=== PATIENT | female | born 1940 | race Caucasian/White ===

== ENCOUNTER → 2018-02-25 01:21 | Outpatient (CLI) | payer MEDICARE, OTHER, SELFPAY ==
--- NOTE | 2018-02-25 13:10 | DI.REPORT_ITS ---
SYMPTOMS/DIAGNOSIS: SCREENING, Z12.39 MAMMOGRAMS: Mammograms were interpreted according to the usual protocol including computer analysis with CAD system, tomosynthesis and C view imaging. Comparison is with prior mammograms. No masses or microcalcifications are seen. There is nothing to suggest malignancy. IMPRESSION: Negative mammogram. Routine screening is recommended. Category 1, breast density B. MQSA ASSESSMENT OF FINDINGS: Negative. Category 1. Patient will receive a letter notifying them of these results. BI-RADS category B. There are scattered areas of fibroglandular density.
== END ==
PROVIDERS: PCP Nurse Practitioner; Visit Provider Nurse Practitioner
DX: Z12.31 Encounter for screening mammogram for malignant neoplasm of breast (principal)
CPT/HCPCS: 77063; 77067

== ENCOUNTER 2018-05-02 01:26 | Outpatient (CLI) | payer MEDICARE, SELFPAY ==
--- NOTE | 2018-05-02 12:58 | DI.RAD_ITS ---
SYMPTOMS/DIAGNOSIS: ASSESS QUANTITY OF STOOL, CONSTIPATION, K59.09, R10.9, ABD PAIN SUPINE ABDOMEN: Stool is seen throughout the colon. There is no abnormal colonic distention. There is no small bowel or gastric dilatation. A left renal artery stent is seen. IMPRESSION: Moderate quantity of fecal material.
== END 2018-05-02 01:46 ==
PROVIDERS: PCP Nurse Practitioner; Visit Provider Family Medicine
DX: K59.09 Other constipation (principal); R10.84 Generalized abdominal pain
CPT/HCPCS: 74018

== ENCOUNTER 2018-05-02 13:15 | Outpatient (REF) | payer MEDICARE, SELFPAY ==
[2018-05-02 13:56] LABS: Bilirubin Negative (Negative); Blood Negative (Negative); Clarity Sl Cloudy; Glucose Negative (Negative); Ketones Negative (Negative); Leukocyte Esterase Small (Negative); Nitrite Negative (Negative); Specific Gravity 1.015 (1.005-1.025); Urobilinogen 0.2 EU/dL (Up TO 0.2)
[2018-05-02 14:05] LABS: Bacteria Few HPF (Negative); Epithelial Cells Few HPF (Negative); RBC Negative (0-2)
[2018-05-02 14:06] LABS: C & S Indicated? Yes; Casts Negative LPF (Negative); Crystals Negative HPF (Negative); Mucus Trace (Negative)
== END 2018-05-02 13:35 ==
LOC: NCHCN 13:15
PROVIDERS: PCP Nurse Practitioner; Visit Provider Family Medicine
DX: R35.0 Frequency of micturition (principal)
CPT/HCPCS: 81003; 81015; 87086

== ENCOUNTER 2018-07-02 09:09 | Outpatient (REF) | payer MEDICARE, SELFPAY ==
[2018-07-02 13:06] LABS: ALT 23 U/L (12-78); AST 20 U/L (15-37); Albumin 4.4 g/dL (3.4-5.0); Alkaline Phosphatase 112 U/L (46-116); Anion Gap 8.3 mmol/L (3-11); BUN 13 mg/dL (7-18); Bilirubin, Total 0.4 mg/dL (0.2-1.0); CO2 29.7 mmol/L (21.0-32.0); Calcium 10.8 mg/dL (8.5-10.1); Chloride 103 mmol/L (98-107); Cholesterol 176 mg/dL (50-200); Glucose 107 mg/dL (70-100); HDL Cholesterol 41 mg/dL (40-60); LDL CHOLESTEROL 102 mg/dL (<100); Potassium 4.1 mmol/L (3.5-5.1); Sodium 141 mmol/L (136-145); TSH (W/Ref FT4) 1.78 uIU/mL (0.358-3.74); Total Protein 7.7 g/dL (6.4-8.2); Triglyceride 203 mg/dL (30-150)
== END 2018-07-02 09:29 ==
LOC: NCHCN 09:09
PROVIDERS: PCP Nurse Practitioner; Visit Provider Nurse Practitioner
DX: N95.1 Menopausal and female climacteric states (principal); I10 Essential (primary) hypertension; E78.5 Hyperlipidemia, unspecified; L85.3 Xerosis cutis
CPT/HCPCS: 80053; 80061; 83721; 84443

== ENCOUNTER 2018-07-24 09:34 | Outpatient (REF) | payer MEDICARE, SELFPAY ==
[2018-07-24 16:04] LABS: Hemoglobin A1C 6.2 % (4.5-6.2)
== END 2018-07-24 09:54 ==
LOC: NCHCN 09:34
PROVIDERS: PCP Nurse Practitioner; Visit Provider Nurse Practitioner
DX: R73.9 Hyperglycemia, unspecified (principal)
CPT/HCPCS: 83036

== ENCOUNTER 2018-09-02 15:45 | Outpatient (CLI) | payer MEDICARE, SELFPAY ==
--- NOTE | 2018-09-02 15:41 | DI.RAD_ITS ---
SYMPTOM/DIAGNOSIS: DYSPNEA, R06.00, PRODUCTIVE COUGH R05 CHEST X-RAY: Frontal and lateral views. Comparison 08/17/12 Heart size and pulmonary vasculature appear stable. No focal infiltrates, effusions or pneumothoraces are identified. There does not appear to be any significant change compared to the prior examination. IMPRESSION: No acute pulmonary process.
== END 2018-09-02 16:05 ==
PROVIDERS: PCP Nurse Practitioner; Visit Provider Nurse Practitioner Family
DX: R06.09 Other forms of dyspnea (principal); R05 Cough
CPT/HCPCS: 71046

== ENCOUNTER 2018-09-02 16:31 | Outpatient (CLI) | payer MEDICARE, SELFPAY ==
[2018-09-02 16:57] LABS: Abs Immature Grans 0.06 k/cumm (0.0-0.09); Absolute Basophil Count 0.05 k/cumm (0.0-0.2); Absolute Neutrophil Count 3.98 k/cumm (1.2-6.7); Basophils % 0.6; Eosinophils % 3.8; HCT 33.3 % (36.0-46.0); HGB 10.4 g/dL (12.0-15.5); Immature Grans % 0.8; Lymphocytes % 34.2; Mean Corp. HGB Concentration 31.2 g/dL (32.0-36.0); Mean Corpuscular Hemoglobin 26.4 pg (27.0-33.0); Mean Corpuscular Volume 84.5 fL (80-95); Mean Platelet Volume 10.2 fL (8.0-11.0); Monocytes % 10.1; Neutrophils % 50.5; Platelet Count 316 x1000/uL (130-400); RBC 3.94 m/cumm (4.00-5.20); RBC Distribution Width 15.8 % (11.7-14.6); White Blood Cell Count 7.89 k/cumm (4.4-10.8)
[2018-09-02 17:14] LABS: Anion Gap 8.1 mmol/L (3-11); BUN 20 mg/dL (7-18); CO2 28.9 mmol/L (21.0-32.0); CREATININE 0.91 mg/dL (0.55-1.02); Calcium 11.2 mg/dL (8.5-10.1); Chloride 103 mmol/L (98-107); Glucose 87 mg/dL (70-100); NT-proBNP 288 pg/mL; Potassium 4.4 mmol/L (3.5-5.1); Sodium 140 mmol/L (136-145)
== END 2018-09-02 16:51 ==
PROVIDERS: PCP Nurse Practitioner; Visit Provider Nurse Practitioner Family
DX: R06.00 Dyspnea, unspecified (principal); R05 Cough
CPT/HCPCS: 80048; 71046; 83880; 85025

== ENCOUNTER 2019-02-12 01:06 | Outpatient (CLI) | payer MEDICARE, SELFPAY ==
--- NOTE | 2019-02-12 13:00 | NS.NUTBLAN_ITS ---
DESCRIPTION: Syed Toscano presents for elevated blood sugar and obesity at 78 years. SHe has co-morbidities of blood pressure, heart iwth recent stress test and diverticulosis. In addition, she is retaining fluid. Syed has yogurt and tea with lactaid for breakfast; skips lunch but might snack on pretzels, chips or ritz with peanut butter or cheese. She uses the crock pot to make complete meals that she eats 3 times a week. She has a snack for and sometimes a meal of potato, vegetable, meat, gravy. She drinks ice coffee with cream and sugar, iced tea sweetened, hot tea. She eats 1/2 gallon of ice cream a month. She also uses agave for sweetener. She lives alone and enjoys doing for herself. She enjoys walking but has been having chest pains that limits her walking. BMI 32 A1c 6.2 INTERVENTION: Discussed healthy diet that would include more vegetables and fruit and she is agreeable. Discussed options to lower her fat intake and increase nutritional quality of snacks. Discussed physical activity including chair exercises. Encouraged small increases to improve quality of life though improved fitness. PLAN: She will increase fruits and vegetables; decrease her grain consumption with mandarin oranges, apple, banana, apricots. look at wellness calendar or contact [facility] [place] for strength classes We will follow up by telephone and she knows to call with questions or concerns.
== END 2019-02-12 01:26 ==
PROVIDERS: PCP Nurse Practitioner; Visit Provider Dietitian, Registered
DX: R73.03 Prediabetes (principal); E66.09 Other obesity due to excess calories; Z68.30 Body mass index [BMI] 30.0-30.9, adult; Z71.3 Dietary counseling and surveillance
CPT/HCPCS: 97802

== ENCOUNTER 2019-06-24 13:04 | Outpatient (CLI) | payer MEDICARE, SELFPAY ==
[2019-06-24 15:24] LABS: HCT 34.7 % (36.0-46.0); HGB 10.8 g/dL (12.0-15.5); Mean Corp. HGB Concentration 31.1 g/dL (32.0-36.0); Mean Corpuscular Hemoglobin 26.1 pg (27.0-33.0); Mean Corpuscular Volume 83.8 fL (80-95); Mean Platelet Volume 9.4 fL (8.0-11.0); Platelet Count 321 x1000/uL (130-400); RBC 4.14 m/cumm (4.00-5.20); RBC Distribution Width 15.5 % (11.7-14.6); White Blood Cell Count 6.87 k/cumm (4.4-10.8)
[2019-06-24 16:40] LABS: ALT 20 U/L (14-59); AST 18 U/L (15-37); Albumin 4.4 g/dL (3.4-5.0); Alkaline Phosphatase 105 U/L (46-116); Anion Gap 7.9 mmol/L (3-11); BUN 13 mg/dL (7-18); Bilirubin, Total 0.4 mg/dL (0.2-1.0); CO2 30.1 mmol/L (21.0-32.0); Calcium 10.7 mg/dL (8.5-10.1); Chloride 100 mmol/L (98-107); Glucose 103 mg/dL (74-106); Sodium 138 mmol/L (136-145); Total Protein 7.6 g/dL (6.4-8.2)
== END 2019-06-24 13:24 ==
PROVIDERS: PCP Nurse Practitioner; Visit Provider Obstetrics & Gynecology Gynecology
DX: N81.3 Complete uterovaginal prolapse (principal); N81.10 Cystocele, unspecified; Z01.818 Encounter for other preprocedural examination; Z01.812 Encounter for preprocedural laboratory examination; I10 Essential (primary) hypertension; I25.10 Atherosclerotic heart disease of native coronary artery without angina pectoris
CPT/HCPCS: 36415; 80053; 85027; 86850; 86900; 86901

== ENCOUNTER 2019-06-25 13:05 | Inpatient (IN) | payer MEDICARE, SELFPAY ==
[2019-06-25] VITALS (32 sets, daily range): BP systolic 93–176; BP diastolic 40–86; PULSE 53–105; RESP 11–22; TEMP 35.4–36.7; O2SAT 89–98
[2019-06-25] MEDS: Lactated Ringers 1,000 ML 125 ML IV ×2 (09:15→14:30)
[2019-06-25] MEDS: ceFAZolin 2 GM/50 ML BAG IVPB (11:32)
--- NOTE | 2019-06-25 15:37 | NUR.NOTE ---
Nursing Note: RN completing assessment and HR noted to be irregular, pauses, slow and then fast. RN notified anesthesia and Dr. Mcdonald. and Shaka JOSEPH came to assess patient.
--- NOTE | 2019-06-25 15:40 | PDOC.ANES ---
Date of service: 06/25/19 Time of Service: 15:40 Anesthesia Note Report Anesthesia Note: Called by OB nurse due to concerns for irrregular heart rate as well as active nausea and feeling poor. Per report she did have an irregular heart rate due to some PVC's during her intraoperative phase as well. When I entered her room, Syed was awake and alert appropriately, denies any chest discomfort or shortness of breath and is not diaphoretic. Given her cardiac history, an ECG was performed which showed sinus rhythm with short (2-3 beat) sinus pauses which when asked the patient seems to remember being told this in the past. In recovery (PACU) she did not have any nausea which did begin once on the OB floor.Given her symptoms and the fact that she received intrathecal narcotics for her procedure today, narcan 40mcg IV dose X2 was given. She states that she does feel better now and the nausea is better as well. This was communicated to OB provider as well as hospitalist team.
[2019-06-25] MEDS: Normal Saline Flush 10 ML SYR IV ×2 (17:25→18:32)
[2019-06-25] MEDS: Ondansetron 4 MG/2 ML VIAL IVP (17:25)
[2019-06-25] MEDS: Ketorolac 30 MG/ML VIAL IVP (17:34)
--- NOTE | 2019-06-25 17:40 | PGE_ITS ---
Date of Service Date of service: 06/25/19 Time of Service: 17:41 Assessment and Plan Assessment and plan (1) Postoperative nausea and vomiting: Status: Acute Assessment and plan: Patient will receive additional antiemetics and have her p.o.'s restricted at this time. (2) Bradycardia following surgery: Status: Acute Assessment and plan: Impression at this time is that it is a vasovagal reaction to nausea and vomiting. She has immediate recovery to her baseline he art rate of 76 range after completing her retching. Subjective Subjective Patient reports: nausea and vomiting Interval history since last seen: Patient arrived on the center from the recovery area. After her anterior posterior colporrhaphy. Pulse was in the 70 bpm range when she developed nausea and centrally had an episode of bradycardia with desaturation to 86% on room air. I was called to evaluate the patient who was alert and awake diaphoretic complaining of nausea and EKG was performed that showed sinus bradycardia. I consulted Dr. Jenkins from the hospitalist service and Shaka Mcfadden CRNA regarding the patient's symptoms. She received 2 doses of IV Narcan in hope of alleviating the nausea felt to be secondary to the intrathecal Duramorph she received as a operative anesthetic. Her nausea improved her oxygen saturation was 96% on room air and pulse was in the 70 range. I consulted with the nursing facility maintenance supervisor regarding transferring patient to [facility] for closer surveillance. She was subsequently transferred via gurney to the ICU as an overflow patient. Upon arrival to the ICU she had an episode of nausea followed by emesis and another episode of bradycardia. During this time her blood pressure remained stable and she was mentating appropriately had had no chest pain. After reviewing her EKG with Dr. Jenkins both Dr. Jenkins I discussed with the patient resuscitation status. She had listed herself in the past as a DO NOT RESUSCITATE/DO NOT INTUBATE. She was adamant about not wanting a breathing tube or respirator or CPR. I explained to her that we respect her desire not to have painful or extreme measures for resuscitation but in light of her nausea and associated vaso-vagal response I would recommend atropine and external pacer until the effects of the anesthesia have subsided. Patient agreed to these measures. Plan is to continue ondansetron 4 mg every 6 hours as needed begin Reglan 10 mg every [address] Waite is written for the external pacer and the atropine if persistent bradycardia. Exam Const General: no acute distress Nutritional Appearance: average body habitus Orientation: alert, awake and oriented x3 Neck Neck: normal visual inspection Chest Chest: normal inspection of the chest Resp Effort & Inspection: normal respiratory effort, able to speak in complete sentences and no respiratory distress Auscultation: crackles (In bases) bilaterally Cardio Jugular venous pressure: no JVD Rate: regular rate Rhythm: abnormal rhythm (Occasional PVC) Heart Sounds: S1 normal and S2 normal Pulses: posterior tibial pulses present Other: SCDs in place GI Palpation: soft (Nontender) General: deferred (Vaginal pack in place) Other: James catheter to gravity drainage clear kaley urine Skin General skin exam: pallor (Skin warm dry to touch) Lesions: no lesions Neuro Gait: normal gait Extrem General: normal to inspection, full ROM and normal capillary refill Psych Mental Status: mental status grossly normal Speech and Movement: speech and movement normal Objective Objective Clinical Data: Vital Signs Temperature 96.1 F L 06/25/19 17:04 Temperature Source Temporal Artery Scan 06/25/19 17:04 Pulse 80 06/25/19 17:04 Pulse Rhythm Irregular 06/25/19 14:31 Pulse 74 06/25/19 16:31 Respiratory Rate 14 06/25/19 17:04 Respiratory Effort 06/25/19 17:04 Respiratory Depth Normal 06/25/19 17:04 Respiratory Pattern Normal 06/25/19 17:04 Blood Pressure 132/61 06/25/19 17:04 Blood Pressure Mean 84 06/25/19 17:04 Blood Pressure Position Supine 06/25/19 17:04 Pulse Oximetry 95 06/25/19 17:04 Respiratory End-tidal CO2 39 06/25/19 13:30 Oxygen Delivery Method Nasal Cannula 06/25/19 17:04 Oxygen Flow Rate 1 06/25/19 17:04 Pain Level 0 06/25/19 17:04 Comment 06/25/19 14:31 Intake & Output 06/24/19 06/25/19 06/25/19 23:59 11:59 23:59 Intake Total 50 / 1431.25 1381.25 / 1431.25 Output Total 220 / 220 Balance 50 / 1211.25 1161.25 / 1211.25 Weight 157 lb 158 lb 8.198 oz 158 lb 8.198 oz Intake: IV 50 / 1431.25 1381.25 / 1431.25 Output: Urine 200 / 200 Estimated Blood Loss 20 / 20 Other: Urine Color Yellow Urine Appearance Clear Emesis Description None
--- NOTE | 2019-06-25 17:51 | MCONE_ITS ---
Date of service: 06/25/19 Time of Service: 17:51 Assessment and Plan Assessment and plan (1) Bradycardia following surgery: Status: Acute Assessment and plan: At this time, it appears that bradycardia is happening at the time of vomiting - and I think the n/v is triggering bradycardia and not the other way around, i.e. bradycardia is a part of her vagal response. Controlling nausea is denson. Agree with adding reglan to zofran. But also, given CAD, r//o ACS. Would hold beta opal tonight. Sick sinus syndrome cannot be ruled out either. Check TFT's. Agree with monitoring in the ICU with atropine prn at the bedside and pacing if needed. She is DNR/DNI otherwise. (2) PVCs (premature ventricular contractions): Status: Chronic Assessment and plan: Normally on a beta opal - will hold this tonight given the episodes of bradycardia. (3) Postoperative nausea and vomiting: Status: Acute Assessment and plan: As above (4) Coronary artery disease: Status: Chronic Assessment and plan: Rule out ACS - monitor on a cardiac montior, check serial troponins. (5) Rectocele: Status: Resolved Assessment and plan: s/p anterior and posterior colporrhaphy today. Defer to primary team. History of Present Illness History of Present Illness Chief Complaint: irregular heart rhythm, bradycardia Narrative: Ms Toscano is a 78 year old female with PMHx of CAD s/p PTCA in 1992/stents in 2006/negative stress test in 2019, as well as a h/o PVCs, sinus arrhythmia, and AAA, on beta opal therapy, who underwent anterior and posterior colporrhaphy today by Dr Mcdonald. Post-operatively, nursing noted an irregular heart rate and alerted Dr Mcdonald. Additionally, the patient was reporting dizziness and blurred vision. PVCs were noted by anesthesia during surgery as well. The patient did not have any chest discomfort or palpitations. EKG showed sinus arrhythmia, HR 49, nonspecific ST-T changes, but no acute ischemia. She had general anesthesia with LMA and as well as intrathecal morphine. Anethesia felt that the dizziness and blurred vision could be related to the intrathecal anesthesia and trialed 2 pushes of narcan, with some improvement in symptoms. In order to be monitored on telemetry, she was moved to the ICU, where the patient was noted several times to have sinus bradycardia to the 40's associated with nausea and vomiting. At this time, the patient again denies chest pain or discomfort, as well as shortness of breath. Her nausea is being treated with zofran and now addition of reglan. The patient's heart rate improves to 90's-100's when she is not actively vomiting/nauseated. She is DNR/DNI per Dr Mcdonald's and my conversation with her, but is willing to have pacing and cardiac medications as needed. Hospitalists were consulted for help managing the patient's cardiac aspects of care. Review of Systems Narrative: 12 systems reviewed. Pertinent positives and negatives are as per HPI. Her dizziness comes and goes and is still there at the time of my 2nd visit with her. Blurred vision is better, comes and goes. Denies chest pain, palpitations, shortness of breath. Nauseated and vomiting when I saw her. 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 Pt will have A&P repair after medical clearance.. Surgical History (Updated 06/25/19 @ 09:01 by Uzair Montero) Angioplasty (Resolved) H/O heart artery stent (Chronic) x3 History of colonoscopy (Chronic) History of tubal ligation (Chronic) Hx of bilateral cataract extraction (Acute) ureteral stent (Resolved) 2004 Vaginal hysterectomy (Resolved ~1988) for endometriosis. Social History (Updated 12/03/18 @ 21:08 by Fang Mcdonald MD) Smoking/Tobacco Use Status: Former Tobacco Use Alcohol Intake: never Drug use: Never Substance use type: does not use Household members: none and other Details: Do you feel safe at home: Yes Female Reproductive History Menstrual Menopause type: surgical Exam Narrative Exam Narrative: General: Very pleasant elderly female, A&OX3, conversant, but vague in her history when I try to obtain it from her on my first visit with her, nauseated/vomiting Neurological: A&Ox3, ?slight L facial droop, no focal deficits otherwise Psychiatric: Appropriate speech pattern/content Skin: Visible skin intact HEENT: Atraumatic, normocephalic, EOMI, MMM, No goiter/JVD Cardiovascular: RRR, I did not hear any irregular beats when I auscultated her, no m/r/g Lungs: CTAB on my original exam Gastrointestinal: abdomen is soft, nontender, mildly distended Genitourinary: deferred Extremities: no e/c/c BLE's Results Last Vital Signs Temp 35.6 C L 06/25/19 17:04 Pulse 80 06/25/19 17:04 Resp 14 06/25/19 17:04 BP 132/61 06/25/19 17:04 Pulse Ox 95 06/25/19 17:04 Labs Result diagrams: 06/25/19 17:50 Imaging Additional studies: EKG: HR 49, sinus arrhythmia, no acute ischemia, nonspecific ST-T changes.
--- NOTE | 2019-06-25 18:02 | W.PM.OP ---
Date of service: 06/25/19 Time of Service: 18:02 Operative Note Operative Note DATE OF PROCEDURE: 06/25/19 PRE-OP DIAGNOSIS: Stage 3 rectocele stage II cystocele POST-OP DIAGNOSIS: same PROCEDURE: Anterior and posterior colporrhaphy SURGEON: Fang Mcdonald PUBLIC RELATIONS SUPERVISOR: Austen Plasencia ANESTHESIA: GETA and spinal ESTIMATED BLOOD LOSS: 20 PATHOLOGY: none sent COMPLICATIONS: None Patient was transported to: PACU Patient's condition: stable Indications: 78-year-old female with symptomatic rectocele who requests definitive therapy. Patient has experienced long-standing constipation and straining with defecation. Findings: Rectocele and cystocele as previously described Procedure Description: Patient was taken to the operating room where she was placed in the supine position and spinal anesthesia was administered without difficulty. She was then placed in the dorsal supine position and general laryngeal mask anesthesia was administered without difficulty. She was then placed in the dorsolithotomy position in yellowfin stirrups prepped and draped in the usual sterile fashion. A James catheter was inserted to gravity drainage she received 2 g of Ancef prior to skin incision and a surgical timeout was performed. 2 Allis clamps were applied to the 5:00 and 7:00 positions at the introitus and the epithelium of the vaginal vestibule was incised with a scalpel in a transverse fashion after infiltration with 1% lidocaine with epinephrine. 1% lidocaine with epinephrine was then infiltrated into the epithelium of the posterior vaginal wall in the midline and a Metzenbaum scissors was used to vaginal epithelium to the level of the vaginal apex. The posterior vaginal epithelium was then dissected away from the underlying viable muscularis layer with Metzenbaum scissors until the lateral margins of the fibromuscularis were encountered. Interrupted sutures of 2-0 Vicryl were then used to plicate the posterior vaginal wall with interrupted transverse sutures. Generous purchase of the lateral fibromuscularis was obtained with each plication beginning proximally and progressing towards the hymenal ring. Once the vestibule was reached the vaginal epithelium was trimmed and the vaginal epithelium was reapproximated with running suture of 2-0 Vicryl in a locked fashion. Attention was then turned to the anterior colporrhaphy. A single Allis clamp was placed 1 cm inferior to the urethral meatus and at the most proximal portion of the cystocele. The vaginal epithelium was infiltrated with 1% lidocaine with epinephrine in a transverse fashion at the base and in the midline to the distal Allis clamp. A scalpel was used to make a superficial transverse incision at the base of the cystocele. Metzenbaum scissor was then used to perform sharp dissection of the epithelium in the midline from the underlying muscularis and adventitia to the level of the pubic symphysis. The epithelium was then incised and this tissue dissected laterally. The distal muscularis and adventitia was then plicated using interrupted 2-0 Vicryl sutures a contiguous fashion to the most proximal portion of the cystocele. The vaginal epithelium was then trimmed and a edges reapproximated with a running suture of 0 Vicryl. Both posterior and anterior colporrhaphy sites were hemostatic At the completion of the procedure. Vaginal packing was then placed into the vagina and trimmed the patient was then placed in dorsal supine position awakened extubated and transported recovery area in stable condition. All sponge lap needle counts correct x2.
[2019-06-25 18:27] LABS: Anion Gap 7.4 mmol/L (3-11); BUN 11 mg/dL (7-18); CO2 28.6 mmol/L (21.0-32.0); CREATININE 0.65 mg/dL (0.55-1.02); Calcium 10.3 mg/dL (8.5-10.1); Chloride 106 mmol/L (98-107); Glucose 155 mg/dL (74-106); Potassium 3.8 mmol/L (3.5-5.1); Sodium 142 mmol/L (136-145)
[2019-06-25] MEDS: Metoclopramide 10 MG/2 ML VIAL IVP (18:32)
[2019-06-25 18:52] LABS: Troponin I < 0.05 ng/Ml (<0.06)
[2019-06-25] MEDS: Atorvastatin 40 MG TAB PO (19:58)
[2019-06-25] MEDS: PANTOPRAZOLE 80 MG in Normal Saline 100 ML 10 MG IV (19:58)
[2019-06-25 22:41] LABS: Troponin I < 0.05 ng/Ml (<0.06)
[2019-06-26] VITALS (36 sets, daily range): BP systolic 97–142; BP diastolic 44–77; PULSE 39–105; RESP 12–27; TEMP 36.1–37.2; O2SAT 88–97
[2019-06-26] MEDS: Ondansetron 4 MG/2 ML VIAL IVP (01:14)
[2019-06-26] MEDS: Metoclopramide 10 MG/2 ML VIAL IVP (01:14)
[2019-06-26] MEDS: Normal Saline Flush 10 ML SYR IV ×3 (01:14→09:36)
[2019-06-26] MEDS: Lactated Ringers 1,000 ML 75 ML IV (01:15)
[2019-06-26] MEDS: PANTOPRAZOLE 80 MG in Normal Saline 100 ML 10 MG IV (04:31)
[2019-06-26] MEDS: Ketorolac 30 MG/ML VIAL IVP (04:33)
[2019-06-26 06:59] LABS: Anion Gap 9.5 mmol/L (3-11); BUN 14 mg/dL (7-18); CO2 26.5 mmol/L (21.0-32.0); CREATININE 0.77 mg/dL (0.55-1.02); Calcium 9.7 mg/dL (8.5-10.1); Chloride 102 mmol/L (98-107); Glucose 110 mg/dL (74-106); Sodium 138 mmol/L (136-145)
[2019-06-26 07:08] LABS: Abs Immature Grans 0.03 k/cumm (0.0-0.09); Absolute Basophil Count 0.01 k/cumm (0.0-0.2); Absolute Lymphocyte Count 1.44 k/cumm (1.2-3.4); Basophils % 0.1; HCT 28.6 % (36.0-46.0); Immature Grans % 0.2; Mean Corp. HGB Concentration 31.5 g/dL (32.0-36.0); Mean Corpuscular Hemoglobin 26.5 pg (27.0-33.0); Mean Corpuscular Volume 84.1 fL (80-95); Mean Platelet Volume 9.8 fL (8.0-11.0); Monocytes % 8.4; Neutrophils % 80.3; Platelet Count 271 x1000/uL (130-400); RBC Distribution Width 15.6 % (11.7-14.6); White Blood Cell Count 13.13 k/cumm (4.4-10.8)
[2019-06-26 07:11] LABS: Calculated LDL 84 mg/dL; Cholesterol 141 mg/dL (<200); HDL Cholesterol 39 mg/dL (40-60); Magnesium 1.8 mg/dL (1.8-2.4); TSH (W/Ref FT4) 0.74 uIU/mL (0.36-3.74); Triglyceride 94 mg/dL (<150)
[2019-06-26 07:15] LABS: Troponin I 0.19 ng/Ml (<0.06)
[2019-06-26 07:23] LABS: Absolute Neutrophil Count 10.54 k/cumm (1.2-6.7)
[2019-06-26 07:37] LABS: Anisocytosis 1+; Diff Comment RBC Morph Reviewed
[2019-06-26 07:38] LABS: Hypochromasia 1+
[2019-06-26] MEDS: Furosemide 20 MG TAB 40 MG PO (08:20)
[2019-06-26] MEDS: Isosorbide Mononitrate 60 MG TABCR 120 MG PO (08:20)
[2019-06-26] MEDS: Docusate Sodium 100 MG CAP PO (08:21)
--- NOTE | 2019-06-26 08:25 | W.PM.PROGNOT ---
Date of Service Date of service: 06/26/19 Time of Service: 15:32 Assessment and Plan Assessment and plan (1) NSTEMI (non-ST elevated myocardial infarction): Status: Acute Assessment and plan: as a result of bradycardia or possible being manifested as bradycardia yesterday. Troponins are still going up. On asa, plavix, heparin gtt. Continue to trend troponins. Obtain echo. Cardiology on board - may require a cardiac cath, to which the patient is agreeable. Monitor in the ICU. (2) Bradycardia following surgery: Status: Resolved Assessment and plan: None since 5 am today. Continue to hold beta blockers. ?manifestation of NSTEMI vs vagal in etiology (3) PVCs (premature ventricular contractions): Status: Chronic Assessment and plan: Chronic. Normally on beta opal, but it is on hold given bradycardic episodes. We are obtaining an echo cardiogram. (4) Postoperative nausea and vomiting: Status: Resolved Assessment and plan: As above (5) Coronary artery disease: Status: Chronic Assessment and plan: Ruled in for NSTEMI. As above (6) Rectocele: Status: Resolved Assessment and plan: s/p anterior and posterior colporrhaphy today. Defer to primary team. Subjective Subjective Interval history since last seen: Troponin 0.19 this am, then 0.48. Chest pain free, no dizziness or nausea today. Reports back pain earlier today. Denies shortness of breath, but reports wheezing when walking. Episode of bradycardia at 19:47, another at 05:20 (HR 39 x 5 beats, was just starting to fall asleep, then HR back up to 50's). Off IVF. Agrees to a transfer for a cardiac cath if needed. Exam Narrative Exam Narrative: General: Very pleasant elderly female, A&OX3, sitting comfortably in a chair HEENT: EOMI, MMM Cardiovascular: RRR, no m/r/g Lungs: crackles at B bases Gastrointestinal: abdomen is soft, nontender, mildly distended Extremities: no e/c/c BLE's Objective Objective Clinical Data: Abnormal lab results 06/25/19 06/26/19 06/26/19 Range/Units 18:00 06:05 06:05 WBC 13.13 H (4.4-10.8) k/cumm RBC 3.40 L (4.00-5.20) m/cumm Hgb 9.0 L (12.0-15.5) g/dL Hct 28.6 L (36.0-46.0) % MCH 26.5 L (27.0-33.0) pg MCHC 31.5 L (32.0-36.0) g/dL RDW 15.6 H (11.7-14.6) % Absolute Neutrophils 10.54 H (1.2-6.7) k/cumm Absolute Monocytes 1.10 H (0.11-0.7) k/cumm Glucose 155 H (74-106) mg/dL Calcium 10.3 H (8.5-10.1) mg/dL Troponin I 0.19 H* (<0.06) ng/Ml HDL Cholesterol 39 L (40-60) mg/dL 06/26/19 Range/Units 06:05 WBC (4.4-10.8) k/cumm RBC (4.00-5.20) m/cumm Hgb (12.0-15.5) g/dL Hct (36.0-46.0) % MCH (27.0-33.0) pg MCHC (32.0-36.0) g/dL RDW (11.7-14.6) % Absolute Neutrophils (1.2-6.7) k/cumm Absolute Monocytes (0.11-0.7) k/cumm Glucose 110 H (74-106) mg/dL Calcium (8.5-10.1) mg/dL Troponin I (<0.06) ng/Ml HDL Cholesterol (40-60) mg/dL Vital Signs Temperature 36.8 C 06/26/19 07:56 Temperature Source Temporal Artery Scan 06/26/19 07:56 Pulse 62 06/26/19 07:56 Pulse Rhythm Regular 06/26/19 08:05 Pulse 63 06/26/19 07:56 Respiratory Rate 26 H 06/26/19 08:04 Respiratory Effort Non-Labored 06/26/19 08:05 Respiratory Depth Normal 06/26/19 08:05 Respiratory Pattern Normal 06/26/19 08:05 Blood Pressure 135/60 06/26/19 07:56 Blood Pressure Mean 77 06/26/19 07:56 Blood Pressure Position Supine 06/25/19 17:04 Pulse Oximetry 95 1205/19 07:56 Respiratory End-tidal CO2 39 06/25/19 13:30 Oxygen Delivery Method Room Air 06/26/19 07:56 Oxygen Flow Rate 0 06/26/19 07:56 Pain Level 0 06/26/19 07:56 Comment 06/26/19 05:20 Intake & Output 06/25/19 06/25/19 06/26/19 11:59 23:59 11:59 Intake Total 50 / 1671.25 1621.25 / 1671.25 1238.0 / 1238.0 Output Total 445 / 445 190 / 190 Balance 50 / 1226.25 1176.25 / 1226.25 1048.0 / 1048.0 Weight 71.9 kg 71.9 kg 71.6 kg Intake: IV 50 / 1431.25 1381.25 / 1431.25 748.0 / 748.0 Oral 240 / 240 490 / 490 Output: Urine 425 / 425 190 / 190 Estimated Blood Loss Other: Urine Color Light Tea Dark Tea Urine Appearance Clear Clear Comment Currently draining adequate, yet slowing amts of clear yellow urine to patent, draining James Emptied bag. 125ml in 2 hours Emesis Description None Laboratory Results WBC 13.13 k/cumm (4.4-10.8) H 06/26/19 06:05 RBC 3.40 m/cumm (4.00-5.20) L 06/26/19 06:05 Hgb 9.0 g/dL (12.0-15.5) L 06/26/19 06:05 Hct 28.6 % (36.0-46.0) L 06/26/19 06:05 MCV 84.1 fL (80-95) 06/26/19 06:05 MCH 26.5 pg (27.0-33.0) L 06/26/19 06:05 MCHC 31.5 g/dL (32.0-36.0) L 06/26/19 06:05 RDW 15.6 % (11.7-14.6) H 06/26/19 06:05 Plt Count 271 x1000/uL (130-400) 06/26/19 06:05 MPV 9.8 fL (8.0-11.0) 06/26/19 06:05 Immature Gran % 0.2 06/26/19 06:05 Neutrophils % 80.3 06/26/19 06:05 Lymphocytes % 11.0 06/26/19 06:05 Monocytes % 8.4 06/26/19 06:05 Eosinophils % 0.0 06/26/19 06:05 Basophils % 0.1 06/26/19 06:05 Absolute Neutrophils 10.54 k/cumm (1.2-6.7) H 06/26/19 06:05 Absolute Lymphocytes 1.44 k/cumm (1.2-3.4) 06/26/19 06:05 Absolute Monocytes 1.10 k/cumm (0.11-0.7) H 06/26/19 06:05 Absolute Eosinophils 0.00 k/cumm (0.0-0.7) 06/26/19 06:05 Absolute Basophils 0.01 k/cumm (0.0-0.2) 06/26/19 06:05 Differential Comment Rbc morph reviewed 06/26/19 06:05 RBC Morphology See below 06/26/19 06:05 Hypochromasia 1+ 06/26/19 06:05 Anisocytosis 1+ 06/26/19 06:05 Sodium 138 mmol/L (136-145) 06/26/19 06:05 Potassium 4.0 mmol/L (3.5-5.1) 06/26/19 06:05 Chloride 102 mmol/L (98-107) 06/26/19 06:05 Carbon Dioxide 26.5 mmol/L (21.0-32.0) 06/26/19 06:05 Anion Gap 9.5 mmol/L (3-11) 06/26/19 06:05 BUN 14 mg/dL (7-18) 06/26/19 06:05 Creatinine 0.77 mg/dL (0.55-1.02) 06/26/19 06:05 Estimated GFR/1.73 m2 >= 60.00 (mL/min/1.73m2) 06/26/19 06:05 Glucose 110 mg/dL (74-106) H 06/26/19 06:05 Calcium 9.7 mg/dL (8.5-10.1) 06/26/19 06:05 Magnesium 1.8 mg/dL (1.8-2.4) 06/26/19 06:05 Troponin I 0.19 ng/Ml (<0.06) H* 06/26/19 06:05 Triglycerides 94 mg/dL (<150) 06/26/19 06:05 Total Cholesterol 141 mg/dL (<200) 06/26/19 06:05 LDL Cholesterol, Calc 84 mg/dL 06/26/19 06:05 HDL Cholesterol 39 mg/dL (40-60) L 06/26/19 06:05 TSH 0.74 uIU/mL (0.36-3.74) 06/26/19 06:05 EKG: NSR, HR 66, no acute ischemia
[2019-06-26] MEDS: Aspirin 81 MG CHEW 324 MG CH (08:47)
[2019-06-26] MEDS: Clopidogrel 300 MG TAB PO (08:48)
--- NOTE | 2019-06-26 08:53 | W.PM.PROGNOT ---
Date of Service Date of service: 06/26/19 Time of Service: 08:53 Assessment and Plan Assessment and plan (1) Elevated troponin: Status: Acute Assessment and plan: Third troponin elevated. Anticoagulation recommended and per recommendation of hospitalist and cardiology service. After consultation with hospitalist. Vaginal back from yesterday surgery removed moderate amount of serosanguineous drainage present. No overt vaginal bleeding. Plan at this time is to repeat a troponin at 12 noon today. Patient notified that she will remain hospitalized overnight and that anticoagulation hospitalist consultation greatly appreciated. (2) Bradycardia following surgery: Status: Acute Assessment and plan: Bradycardia associated with vasovagal response has subsided. Her last episode was yesterday evening. After her nausea was successfully treated she has been tolerating a regular diet and has had a sinus rhythm. (3) Postoperative nausea and vomiting: Status: Acute Assessment and plan: Normalized. Tolerating a regular diet. Subjective Subjective Patient reports: feels better and tolerating a regular diet; denies shortness of breath Interval history since last seen: No pain overnight. Nausea subsided and tolerating regular diet. Exam Narrative Exam Narrative: POD1. Anterior and posterior colporrhaphy. Episodes of n/v postop that resulted in bradicardia secondary to vaso-vagal response. Pt was treated for nausea and emesis subsided. Tropinin series shows elevation this am. Hospitalist service spoke with cardiology who recommended anticoagulation in addition to her daily ASA. Pt was informed of need for continued hospitalization pending anticoagulation. No BM yet. Const General: no acute distress (States no pain during the night. Feels great) Nutritional Appearance: average body habitus Orientation: alert, awake and oriented x3 Resp Effort & Inspection: normal respiratory effort and able to speak in complete sentences Auscultation: clear to auscultation bilaterally Cardio Rate: regular rate Rhythm: regular rhythm GI Palpation: soft, no masses and nontender Percussion: normal to percussion External Female Exam: external appearance normal and other (vaginal pack moist with serous sanguinous drainage removed) Bimanual Exam- Vagina & Uterus: No normal bimanual exam (Bimanual exam deferred.) Back/Spine/Pelvis Back: no CVA tenderness Skin General skin exam: no rashes or lesions noted Extrem General: normal to inspection, full ROM and normal capillary refill (SCDs currently off of patient) Psych Appearance: grossly normal Mental Status: mental status grossly normal Speech and Movement: speech and movement normal Objective Objective Clinical Data: Abnormal lab results 06/25/19 06/26/19 06/26/19 Range/Units 18:00 06:05 06:05 WBC 13.13 H (4.4-10.8) k/cumm RBC 3.40 L (4.00-5.20) m/cumm Hgb 9.0 L (12.0-15.5) g/dL Hct 28.6 L (36.0-46.0) % MCH 26.5 L (27.0-33.0) pg MCHC 31.5 L (32.0-36.0) g/dL RDW 15.6 H (11.7-14.6) % Absolute Neutrophils 10.54 H (1.2-6.7) k/cumm Absolute Monocytes 1.10 H (0.11-0.7) k/cumm Glucose 155 H (74-106) mg/dL Calcium 10.3 H (8.5-10.1) mg/dL Troponin I 0.19 H* (<0.06) ng/Ml HDL Cholesterol 39 L (40-60) mg/dL 06/26/19 Range/Units 06:05 WBC (4.4-10.8) k/cumm RBC (4.00-5.20) m/cumm Hgb (12.0-15.5) g/dL Hct (36.0-46.0) % MCH (27.0-33.0) pg MCHC (32.0-36.0) g/dL RDW (11.7-14.6) % Absolute Neutrophils (1.2-6.7) k/cumm Absolute Monocytes (0.11-0.7) k/cumm Glucose 110 H (74-106) mg/dL Calcium (8.5-10.1) mg/dL Troponin I (<0.06) ng/Ml HDL Cholesterol (40-60) mg/dL Vital Signs Temperature 98.2 F 06/26/19 07:56 Temperature Source Temporal Artery Scan 06/26/19 07:56 Pulse 62 06/26/19 07:56 Pulse Rhythm Regular 06/26/19 08:05 Pulse 63 06/26/19 07:56 Respiratory Rate 26 H 12/05/19 08:04 Respiratory Effort Non-Labored 06/26/19 08:05 Respiratory Depth Normal 06/26/19 08:05 Respiratory Pattern Normal 06/26/19 08:05 Blood Pressure 135/60 06/26/19 07:56 Blood Pressure Mean 77 06/26/19 07:56 Blood Pressure Position Supine 06/25/19 17:04 Pulse Oximetry 95 06/26/19 07:56 Respiratory End-tidal CO2 39 06/25/19 13:30 Oxygen Delivery Method Room Air 06/26/19 07:56 Oxygen Flow Rate 0 06/26/19 07:56 Pain Level 0 06/26/19 07:56 Comment 06/26/19 05:20 Intake & Output 06/25/19 06/25/19 06/26/19 11:59 23:59 11:59 Intake Total 50 / 1671.25 1621.25 / 1671.25 1238.0 / 1238.0 Output Total 445 / 445 190 / 190 Balance 50 / 1226.25 1176.25 / 1226.25 1048.0 / 1048.0 Weight 158 lb 8.198 oz 158 lb 8.198 oz 157 lb 13.616 oz Intake: IV 50 / 1431.25 1381.25 / 1431.25 748.0 / 748.0 Oral 240 / 240 490 / 490 Output: Urine 425 / 425 190 / 190 Estimated Blood Loss Other: Urine Color Light Tea Dark Tea Urine Appearance Clear Clear Comment Currently draining adequate, yet slowing amts of clear yellow urine to patent, draining James Emptied bag. 125ml in 2 hours Emesis Description None Laboratory Results WBC 13.13 k/cumm (4.4-10.8) H 06/26/19 06:05 RBC 3.40 m/cumm (4.00-5.20) L 06/26/19 06:05 Hgb 9.0 g/dL (12.0-15.5) L 06/26/19 06:05 Hct 28.6 % (36.0-46.0) L 06/26/19 06:05 MCV 84.1 fL (80-95) 06/26/19 06:05 MCH 26.5 pg (27.0-33.0) L 06/26/19 06:05 MCHC 31.5 g/dL (32.0-36.0) L 06/26/19 06:05 RDW 15.6 % (11.7-14.6) H 06/26/19 06:05 Plt Count 271 x1000/uL (130-400) 06/26/19 06:05 MPV 9.8 fL (8.0-11.0) 06/26/19 06:05 Immature Gran % 0.2 06/26/19 06:05 Neutrophils % 80.3 06/26/19 06:05 Lymphocytes % 11.0 06/26/19 06:05 Monocytes % 8.4 06/26/19 06:05 Eosinophils % 0.0 06/26/19 06:05 Basophils % 0.1 06/26/19 06:05 Absolute Neutrophils 10.54 k/cumm (1.2-6.7) H 06/26/19 06:05 Absolute Lymphocytes 1.44 k/cumm (1.2-3.4) 06/26/19 06:05 Absolute Monocytes 1.10 k/cumm (0.11-0.7) H 06/26/19 06:05 Absolute Eosinophils 0.00 k/cumm (0.0-0.7) 06/26/19 06:05 Absolute Basophils 0.01 k/cumm (0.0-0.2) 06/26/19 06:05 Differential Comment Rbc morph reviewed 06/26/19 06:05 RBC Morphology See below 06/26/19 06:05 Hypochromasia 1+ 06/26/19 06:05 Anisocytosis 1+ 06/26/19 06:05 Sodium 138 mmol/L (136-145) 06/26/19 06:05 Potassium 4.0 mmol/L (3.5-5.1) 06/26/19 06:05 Chloride 102 mmol/L (98-107) 06/26/19 06:05 Carbon Dioxide 26.5 mmol/L (21.0-32.0) 06/26/19 06:05 Anion Gap 9.5 mmol/L (3-11) 06/26/19 06:05 BUN 14 mg/dL (7-18) 06/26/19 06:05 Creatinine 0.77 mg/dL (0.55-1.02) 06/26/19 06:05 Estimated GFR/1.73 m2 >= 60.00 (mL/min/1.73m2) 06/26/19 06:05 Glucose 110 mg/dL (74-106) H 06/26/19 06:05 Calcium 9.7 mg/dL (8.5-10.1) 06/26/19 06:05 Magnesium 1.8 mg/dL (1.8-2.4) 06/26/19 06:05 Troponin I 0.19 ng/Ml (<0.06) H* 06/26/19 06:05 Triglycerides 94 mg/dL (<150) 06/26/19 06:05 Total Cholesterol 141 mg/dL (<200) 06/26/19 06:05 LDL Cholesterol, Calc 84 mg/dL 06/26/19 06:05 HDL Cholesterol 39 mg/dL (40-60) L 06/26/19 06:05 TSH 0.74 uIU/mL (0.36-3.74) 06/26/19 06:05
[2019-06-26 09:21] LABS: PTT Activated 23.2 sec (21.0-31.4)
[2019-06-26 09:30] LABS: NT-proBNP 1234 pg/mL (<300)
[2019-06-26] MEDS: Polyethylene Glycol 3350 17 GM PACKET PO (11:05)
--- NOTE | 2019-06-26 11:05 | W.CARDCONSUL ---
Date of service: 06/26/19 Time of Service: 11:06 Assessment and Plan Assessment and plan (1) Bradycardia following surgery: Status: Acute Assessment and plan: 1. Troponin elevation in the postop period. Patient had symptoms of nausea and vomiting which certainly could be related to ischemia so the story sounds more like it was secondary to the anesthetic. Nausea and vomiting is a common presenting symptom of ischemia in women of this age. She has known coronary disease. I think at this point it is reasonable to trend her troponins and treat her as a non-STEMI (unclear if type I or II) as long as the surgical team is okay with anticoagulation or antiplatelet medication. In an ideal scenario, we would treat her with 48 hours of heparin and dual antiplatelet therapy. Without ongoing symptoms I do not think we need to urgently transfer her to a [employer] capable hospital as long as her troponin does not continue to climb. ?Trend troponins ?Heparin drip if cleared by surgery ?Dual antiplatelet therapy if okay with surgery ?Would halve her beta-opal for now. As mentioned in the HPI she does have a history of bradycardia with sinus arrhythmia so do not think any of this is new for her. Beta-blockers are recommended in the setting of ischemia without cardiogenic shock so I prefer not to remove it entirely ?Continue atorvastatin ?Continue isosorbide mononitrate 2. Bradycardia with sinus arrhythmia. This is not a new finding. In the setting of recent anesthesia this is certainly not a surprising finding for this patient. ?We will halve her beta-opal at this time ?Continue to monitor on telemetry Thank you for including cardiology in this patient's care. Please contact us with any further questions. (2) Elevated troponin: Status: Acute History of Present Illness History of Present Illness Chief Complaint: nausea Narrative: Ms Toscano who is followed by [facility] cardiology for history of coronary artery disease status post remote PCI and recent negative stress test. She is also treated for hyperlipidemia and hypertension. She recently underwent a surgical procedure with [employer] DEVEL[employer] with. She had general anesthesia and when awakening in the postop unit she developed nausea dizziness and blurred vision. PVCs were noted on her telemetry and EKG showed bradycardia with sinus arrhythmia. Overnight she had several episodes of sinus bradycardia in the 40s and additional episodes of nausea and vomiting. There were 3 troponins drawn of which the third is elevated to 0.19. She was admitted to the hospitalist service for management in the hospital service is now consulting cardiology for further recommendations. In review of her [facility] records it shows that the patient has had marked sinus bradycardia with sinus arrhythmia in the past. She had a nuclear stress test in January of this year which showed reasonable exercise tolerance and good heart rate augmentation. 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 Pt will have A&P repair after medical clearance.. Surgical History Angioplasty (Resolved) H/O heart artery stent (Chronic) x3 History of colonoscopy (Chronic) History of tubal ligation (Chronic) Hx of bilateral cataract extraction (Acute) ureteral stent (Resolved) 2004 Vaginal hysterectomy (Resolved ~1988) for endometriosis. Social History Smoking/Tobacco Use Status: Former Tobacco Use Alcohol Intake: never Drug use: Never Substance use type: does not use Household members: none and other Details: Do you feel safe at home: Yes Female Reproductive History Menstrual Menopause type: surgical Exam Const General: comfortable and no acute distress HENMT Head: normocephalic and atraumatic Eyes General: appearance normal, both eyes and all related structures Resp Effort & Inspection: normal respiratory effort Auscultation: clear to auscultation bilaterally Cardio Jugular venous pressure: no JVD Palpation: normal PMI Rate: regular rate Rhythm: regular rhythm Heart Sounds: S1 normal and S2 normal (No Murmurs, Rubs or Gallops) GI Palpation: soft Auscultation: normoactive bowel sounds Skin General skin exam: no rashes or lesions noted Extrem General: normal to inspection and no clubbing, cyanosis or edema Psych Appearance: grossly normal Results Last Vital Signs Temp 36.8 C 06/26/19 07:56 Pulse 62 06/26/19 07:56 Resp 26 H 06/26/19 08:04 BP 135/60 06/26/19 07:56 Pulse Ox 95 06/26/19 07:56 Labs Result diagrams: 06/26/19 06:05 06/26/19 06:05 Labs: Laboratory Results - last 24 hr 06/25/19 06/25/19 06/25/19 18:00 18:00 22:05 WBC RBC Hgb Hct MCV MCH MCHC RDW Plt Count MPV Immature Gran % Neutrophils % Lymphocytes % Monocytes % Eosinophils % Basophils % Absolute Neutrophils Absolute Lymphocytes Absolute Monocytes Absolute Eosinophils Absolute Basophils Differential Comment RBC Morphology Hypochromasia Anisocytosis APTT Sodium 142 Potassium 3.8 Chloride 106 Carbon Dioxide 28.6 Anion Gap 7.4 BUN 11 Creatinine 0.65 Estimated GFR/1.73 m2 >= 60.00 Glucose 155 H Calcium 10.3 H Magnesium 2.0 Troponin I < 0.05 < 0.05 NT-Pro-B Natriuret Pep Triglycerides Total Cholesterol LDL Cholesterol, Calc HDL Cholesterol TSH 06/26/19 06/26/19 06/26/19 06:05 06:05 06:05 WBC 13.13 H RBC 3.40 L Hgb 9.0 L Hct 28.6 L MCV 84.1 MCH 26.5 L MCHC 31.5 L RDW 15.6 H Plt Count 271 MPV 9.8 Immature Gran % 0.2 Neutrophils % 80.3 Lymphocytes % 11.0 Monocytes % 8.4 Eosinophils % 0.0 Basophils % 0.1 Absolute Neutrophils 10.54 H Absolute Lymphocytes 1.44 Absolute Monocytes 1.10 H Absolute Eosinophils 0.00 Absolute Basophils 0.01 Differential Comment Rbc morph reviewed RBC Morphology See below Hypochromasia 1+ Anisocytosis 1+ APTT Sodium 138 Potassium 4.0 Chloride 102 Carbon Dioxide 26.5 Anion Gap 9.5 BUN 14 Creatinine 0.77 Estimated GFR/1.73 m2 >= 60.00 Glucose 110 H Calcium 9.7 Magnesium 1.8 Troponin I 0.19 H* NT-Pro-B Natriuret Pep 1234 Triglycerides 94 Total Cholesterol 141 LDL Cholesterol, Calc 84 HDL Cholesterol 39 L TSH 0.74 06/26/19 08:40 WBC RBC Hgb Hct MCV MCH MCHC RDW Plt Count MPV Immature Gran % Neutrophils % Lymphocytes % Monocytes % Eosinophils % Basophils % Absolute Neutrophils Absolute Lymphocytes Absolute Monocytes Absolute Eosinophils Absolute Basophils Differential Comment RBC Morphology Hypochromasia Anisocytosis APTT 23.2 Sodium Potassium Chloride Carbon Dioxide Anion Gap BUN Creatinine Estimated GFR/1.73 m2 Glucose Calcium Magnesium Troponin I NT-Pro-B Natriuret Pep Triglycerides Total Cholesterol LDL Cholesterol, Calc HDL Cholesterol TSH EKG interpretations Dysrhythmias Sinus rhythms and dysrhythmias: sinus bradycardia (< 50 bpm)
[2019-06-26 12:54] LABS: Troponin I 0.48 ng/Ml (<0.06)
[2019-06-26] MEDS: Pantoprazole 40 MG VIAL IVP (15:54)
[2019-06-26 16:25] LABS: PTT Activated 47.5 sec (21.0-31.4)
[2019-06-26 16:32] LABS: Troponin I 0.55 ng/Ml (<0.06)
--- NOTE | 2019-06-26 16:46 | PGE_ITS ---
Date of Service Date of service: 06/26/19 Time of Service: 16:46 Assessment and Plan Assessment and plan (1) NSTEMI (non-ST elevated myocardial infarction): Status: Acute Assessment and plan: Patient being followed by hospitalist and cardiology service. Most recent troponin continues to rise. Will repeat it 1999 and plan transfer to [facility] for cardiac cath if indicated (2) H/O rectocele repair: Status: Acute Subjective Subjective Patient reports: no new complaints and bowel movement (Patient describes some tenderness at her coccyx after BM) Interval history since last seen: Appreciate the cardiology consult in hospitalist input. Most recent troponin 0.55ng/AK Exam Const General: no acute distress Nutritional Appearance: average body habitus Other: Physical exam deferred. Objective Objective Clinical Data: Abnormal lab results 06/25/19 06/26/19 06/26/19 Range/Units 18:00 06:05 06:05 WBC 13.13 H (4.4-10.8) k/cumm RBC 3.40 L (4.00-5.20) m/cumm Hgb 9.0 L (12.0-15.5) g/dL Hct 28.6 L (36.0-46.0) % MCH 26.5 L (27.0-33.0) pg MCHC 31.5 L (32.0-36.0) g/dL RDW 15.6 H (11.7-14.6) % Absolute Neutrophils 10.54 H (1.2-6.7) k/cumm Absolute Monocytes 1.10 H (0.11-0.7) k/cumm APTT (21.0-31.4) sec Glucose 155 H (74-106) mg/dL Calcium 10.3 H (8.5-10.1) mg/dL Troponin I 0.19 H* (<0.06) ng/Ml HDL Cholesterol 39 L (40-60) mg/dL 06/26/19 06/26/19 06/26/19 Range/Units 06:05 12:07 15:55 WBC (4.4-10.8) k/cumm RBC (4.00-5.20) m/cumm Hgb (12.0-15.5) g/dL Hct (36.0-46.0) % MCH (27.0-33.0) pg MCHC (32.0-36.0) g/dL RDW (11.7-14.6) % Absolute Neutrophils (1.2-6.7) k/cumm Absolute Monocytes (0.11-0.7) k/cumm APTT 47.5 H D (21.0-31.4) sec Glucose 110 H (74-106) mg/dL Calcium (8.5-10.1) mg/dL Troponin I 0.48 H* (<0.06) ng/Ml HDL Cholesterol (40-60) mg/dL 06/26/19 Range/Units 15:55 WBC (4.4-10.8) k/cumm RBC (4.00-5.20) m/cumm Hgb (12.0-15.5) g/dL Hct (36.0-46.0) % MCH (27.0-33.0) pg MCHC (32.0-36.0) g/dL RDW (11.7-14.6) % Absolute Neutrophils (1.2-6.7) k/cumm Absolute Monocytes (0.11-0.7) k/cumm APTT (21.0-31.4) sec Glucose (74-106) mg/dL Calcium (8.5-10.1) mg/dL Troponin I 0.55 H* (<0.06) ng/Ml HDL Cholesterol (40-60) mg/dL Vital Signs Temperature 99.0 F 06/26/19 16:33 Temperature Source Temporal Artery Scan 06/26/19 16:33 Pulse 61 06/26/19 12:16 Pulse Rhythm Regular 06/26/19 08:05 Pulse 62 06/26/19 12:16 Respiratory Rate 16 06/26/19 12:16 Respiratory Effort Non-Labored 06/26/19 08:05 Respiratory Depth Normal 06/26/19 08:05 Respiratory Pattern Normal 06/26/19 08:05 Blood Pressure 133/68 06/26/19 12:16 Blood Pressure Mean 84 06/26/19 12:16 Blood Pressure Position Supine 06/25/19 17:04 Pulse Oximetry 95 06/26/19 07:56 Respiratory End-tidal CO2 39 06/25/19 13:30 Oxygen Delivery Method Room Air 06/26/19 16:33 Oxygen Flow Rate 0 06/26/19 16:33 Pain Level 0 06/26/19 12:16 Comment 06/26/19 05:20 Intake & Output 06/25/19 06/26/19 06/26/19 23:59 11:59 23:59 Intake Total 1621.25 / 1671.25 2403.0 / 2503.0 100 / 2503.0 Output Total 445 / 445 810 / 1160 350 / 1160 Balance 1176.25 / 1226.25 1593.0 / 1343.0 -250 / 1343.0 Weight 158 lb 8.198 oz 157 lb 13.616 oz Intake: IV 1381.25 / 1431.25 1673.0 / 1773.0 100 / 1773.0 Oral 240 / 240 730 / 730 Output: Urine 425 / 425 810 / 1160 350 / 1160 Estimated Blood Loss Other: Urine Color Light Tea Light Tea Pale [place] Yellow Urine Appearance Clear Clear Clear Urine Odor Normal Normal Comment Currently draining adequate, yet slowing amts of clear yellow urine to patent, draining James Noted small amount of serosang drainage on attends and toilet paper. Slightly blood tinged urine. Patient states Dr. Mcdonald has been in the room to remove vaginal packing. Emesis Description None Voiding Methods Bedside Commode Bedside Commode Laboratory Results WBC 13.13 k/cumm (4.4-10.8) H 06/26/19 06:05 RBC 3.40 m/cumm (4.00-5.20) L 06/26/19 06:05 Hgb 9.0 g/dL (12.0-15.5) L 06/26/19 06:05 Hct 28.6 % (36.0-46.0) L 06/26/19 06:05 MCV 84.1 fL (80-95) 06/26/19 06:05 MCH 26.5 pg (27.0-33.0) L 06/26/19 06:05 MCHC 31.5 g/dL (32.0-36.0) L 06/26/19 06:05 RDW 15.6 % (11.7-14.6) H 06/26/19 06:05 Plt Count 271 x1000/uL (130-400) 06/26/19 06:05 MPV 9.8 fL (8.0-11.0) 06/26/19 06:05 Immature Gran % 0.2 06/26/19 06:05 Neutrophils % 80.3 06/26/19 06:05 Lymphocytes % 11.0 06/26/19 06:05 Monocytes % 8.4 06/26/19 06:05 Eosinophils % 0.0 06/26/19 06:05 Basophils % 0.1 06/26/19 06:05 Absolute Neutrophils 10.54 k/cumm (1.2-6.7) H 06/26/19 06:05 Absolute Lymphocytes 1.44 k/cumm (1.2-3.4) 06/26/19 06:05 Absolute Monocytes 1.10 k/cumm (0.11-0.7) H 06/26/19 06:05 Absolute Eosinophils 0.00 k/cumm (0.0-0.7) 06/26/19 06:05 Absolute Basophils 0.01 k/cumm (0.0-0.2) 06/26/19 06:05 Differential Comment Rbc morph reviewed 06/26/19 06:05 RBC Morphology See below 06/26/19 06:05 Hypochromasia 1+ 06/26/19 06:05 Anisocytosis 1+ 06/26/19 06:05 APTT 47.5 sec (21.0-31.4) H D 06/26/19 15:55 Sodium 138 mmol/L (136-145) 06/26/19 06:05 Potassium 4.0 mmol/L (3.5-5.1) 06/26/19 06:05 Chloride 102 mmol/L (98-107) 06/26/19 06:05 Carbon Dioxide 26.5 mmol/L (21.0-32.0) 06/26/19 06:05 Anion Gap 9.5 mmol/L (3-11) 06/26/19 06:05 BUN 14 mg/dL (7-18) 06/26/19 06:05 Creatinine 0.77 mg/dL (0.55-1.02) 06/26/19 06:05 Estimated GFR/1.73 m2 >= 60.00 (mL/min/1.73m2) 06/26/19 06:05 Glucose 110 mg/dL (74-106) H 06/26/19 06:05 Calcium 9.7 mg/dL (8.5-10.1) 06/26/19 06:05 Magnesium 1.8 mg/dL (1.8-2.4) 06/26/19 06:05 Troponin I 0.55 ng/Ml (<0.06) H* 06/26/19 15:55 NT-Pro-B Natriuret Pep 1234 pg/mL (<300) 06/26/19 06:05 Triglycerides 94 mg/dL (<150) 06/26/19 06:05 Total Cholesterol 141 mg/dL (<200) 06/26/19 06:05 LDL Cholesterol, Calc 84 mg/dL 06/26/19 06:05 HDL Cholesterol 39 mg/dL (40-60) L 06/26/19 06:05 TSH 0.74 uIU/mL (0.36-3.74) 06/26/19 06:05
[2019-06-26] MEDS: Furosemide 20 MG/2 ML VIAL IVP (16:48)
--- NOTE | 2019-06-26 17:24 | INITIAL_ITS ---
Care Management Initial Assess REASON FOR HOSPITALIZATION:: Anterior and Posterior Colporrhaphy PAST MEDICAL HISTORY/PAST SURGICAL HISTORY:: Angina, Aortic Aneurysm, Arthritis- Osteo/DJD, Cataract(s), CAD, CHF, Diverticulitis, Gastro/Esoph Reflux (GERD), Hypertension, [place](S), Migraine Headache, Peripheral Vasc. Disease, Stent in kidney due to vascular ISS, Dermatitis, hyperglycemia, stress incontinence, chronic back pain. Surgical: Colonoscopy, Cardiac Catheterization, Coronary Artery Stent(s), Cataract(s), Hysterectomy, Shoulder Surgery(s), Tubal Ligation, Angioplasty w/cardiac stents, renal stent, uteteral stent, ulnar nerve, intraocular lens PREVIOUS FUNCTIONAL STATUS/SOCIAL/FAMILY SUPPORTS:: Syed resides in [place], [place] alone. She is a mom of four; two of her children shortly after with genetic anomaly. She has one surviving child and one adopted child; two daughters, Latosha and Verónica. She has three grandchildren and reports being close with her family. 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 CURRENT FUNCTIONAL STATUS:: Syed was lying in bed, pleasant in interaction. Her hospital course has changed a few times due rising troponins; she is being closely monitored in the ICU at this time. ADVANCE DIRECTIVES:: None on file at [facility]. Has patient been provided with information about the portal?: Yes Did the patient sign up for the portal?: No CODE STATUS:: DNR/DNI INSURANCE COVERAGE / FINANCIAL ISSUES:: Medicare. [place] CURRENT HOME/COMMUNITY SERVICES/EQUIPMENT:: Raised toilet seat, Grab bars, MOW PRIMARY CARE PHYSICIAN:: Jonathan Hickman MD. POTENTIAL DISCHARGE NEEDS:: Follow up appointments. PATIENT/FAMILY EDUCATION NEEDS:: Review of discharge instructions, discuss Ask Me Three. ANTICIPATED BARRIERS TO DISCHARGE:: None identified at this time. TRANSPORTATION:: TBD by disposition. PLAN:: Syed will continue to be closely monitored in the ICU at this time. CM will continue to follow and support discharge planning considerations.
[2019-06-26] MEDS: Acetaminophen 500 MG TAB 1000 MG PO (19:59)
[2019-06-26 20:40] LABS: Troponin I 0.32 ng/Ml (<0.06)
[2019-06-26] MEDS: Atorvastatin 40 MG TAB PO (22:33)
[2019-06-27] VITALS (29 sets, daily range): BP systolic 94–185; BP diastolic 48–89; PULSE 62–101; RESP 14–23; TEMP 36.6–37.2; O2SAT 91–98
--- NOTE | 2019-06-27 03:26 | NUR.NOTE ---
Nursing Note: Pt's primary care RN requested asst for IV restart. Pt is on heparin gtt for suspected post op NSTEMI. Was found out of her room having pulled out IV, standing in the doorway to another patient's room by the other PLASTER MACHINE OPERATOR. Was directed back to her room, and assessment done to determine orientation. Pt was alert and oriented x4 at that time, but became hostile at being assessed and c/o being treated poorly. Attempts to educate regarding callbell usage and dangers of bleeding while on heparin drip were also met with hostility. #20 right forearm started on 1st attempt with brisk blood return to aspiration and flushed freely.
[2019-06-27 07:45] LABS: Abs Immature Grans 0.02 k/cumm (0.0-0.09); Absolute Basophil Count 0.04 k/cumm (0.0-0.2); Absolute Eosinophil Count 0.14 k/cumm (0.0-0.7); Absolute Lymphocyte Count 1.54 k/cumm (1.2-3.4); Absolute Monocyte Count 0.72 k/cumm (0.11-0.7); Absolute Neutrophil Count 4.85 k/cumm (1.2-6.7); Basophils % 0.5; Eosinophils % 1.9; HCT 29.3 % (36.0-46.0); HGB 9.1 g/dL (12.0-15.5); Immature Grans % 0.3; Lymphocytes % 21.1; Mean Corp. HGB Concentration 31.1 g/dL (32.0-36.0); Mean Corpuscular Hemoglobin 26.1 pg (27.0-33.0); Mean Corpuscular Volume 84.2 fL (80-95); Mean Platelet Volume 9.6 fL (8.0-11.0); Monocytes % 9.8; Neutrophils % 66.4; Platelet Count 248 x1000/uL (130-400); RBC 3.48 m/cumm (4.00-5.20); White Blood Cell Count 7.31 k/cumm (4.4-10.8)
[2019-06-27 08:05] LABS: BUN 11 mg/dL (7-18); CREATININE 0.69 mg/dL (0.55-1.02); Calcium 9.9 mg/dL (8.5-10.1); Chloride 106 mmol/L (98-107); Glucose 101 mg/dL (74-106); Magnesium 1.9 mg/dL (1.8-2.4); Potassium 3.5 mmol/L (3.5-5.1); Sodium 142 mmol/L (136-145)
[2019-06-27 08:09] LABS: Troponin I 0.42 ng/Ml (<0.06)
[2019-06-27 08:18] LABS: PTT Activated 39.1 sec (21.0-31.4)
--- NOTE | 2019-06-27 08:31 | PGE_ITS ---
Subjective Subjective Interval history since last seen: Troponin going back up. Echo at 9 am. Asymptomatic. No bradycardia overnight. SR in 90's this am. Objective Objective Clinical Data: Abnormal lab results 06/26/19 06/26/19 06/26/19 Range/Units 12:07 15:55 15:55 RBC (4.00-5.20) m/cumm Hgb (12.0-15.5) g/dL Hct (36.0-46.0) % MCH (27.0-33.0) pg MCHC (32.0-36.0) g/dL RDW (11.7-14.6) % Absolute Monocytes (0.11-0.7) k/cumm APTT 47.5 H D (21.0-31.4) sec Troponin I 0.48 H* 0.55 H* (<0.06) ng/Ml 06/26/19 06/27/19 06/27/19 Range/Units 20:01 07:05 07:05 RBC (4.00-5.20) m/cumm Hgb (12.0-15.5) g/dL Hct (36.0-46.0) % MCH (27.0-33.0) pg MCHC (32.0-36.0) g/dL RDW (11.7-14.6) % Absolute Monocytes (0.11-0.7) k/cumm APTT 39.1 H (21.0-31.4) sec Troponin I 0.32 H* 0.42 H* (<0.06) ng/Ml 06/27/19 Range/Units 07:05 RBC 3.48 L (4.00-5.20) m/cumm Hgb 9.1 L (12.0-15.5) g/dL Hct 29.3 L (36.0-46.0) % MCH 26.1 L (27.0-33.0) pg MCHC 31.1 L (32.0-36.0) g/dL RDW 16.0 H (11.7-14.6) % Absolute Monocytes 0.72 H (0.11-0.7) k/cumm APTT (21.0-31.4) sec Troponin I (<0.06) ng/Ml Vital Signs Temperature 36.8 C 06/27/19 07:48 Temperature Source Temporal Artery Scan 06/27/19 07:48 Pulse 84 06/26/19 17:01 Pulse Rhythm Regular 06/27/19 00:00 Pulse 85 06/26/19 17:01 Respiratory Rate 22 06/26/19 17:01 Respiratory Effort Non-Labored 06/27/19 07:48 Respiratory Depth Shallow 06/27/19 07:48 Respiratory Pattern Normal 06/27/19 07:48 Blood Pressure 139/56 L 06/26/19 17:01 Blood Pressure Mean 77 06/26/19 17:01 Blood Pressure Position Supine 06/26/19 16:33 Pulse Oximetry 97 06/26/19 16:30 Respiratory End-tidal CO2 39 06/25/19 13:30 Oxygen Delivery Method Nasal Cannula 06/26/19 20:05 Oxygen Flow Rate 2 06/26/19 20:05 Pain Level 5 06/27/19 07:48 Comment 06/26/19 05:20 Intake & Output 06/26/19 06/26/19 06/27/19 11:59 23:59 11:59 Intake Total 2403.0 / 2564.058 161.058 / 2564.058 Output Total 810 / 2710 1900 / 2710 500 / 500 Balance 1593.0 / -145.942 -1738.942 / -145.942 -500 / -500 Weight 71.6 kg 75.3 kg Intake: IV 1673.0 / 1834.058 161.058 / 1834.058 Oral 730 / 730 Output: Urine 810 / 2710 1900 / 2710 500 / 500 Other: Urine Color Light Tea Yellow Yellow [place] Urine Appearance Clear Clear Clear Urine Odor Normal Normal Comment Noted small amount of serosang drainage on attends and toilet paper. small amt of serosanguinous drainage noted in the commode. Urine not visualized but last void had serosanguinous fluid mixed in per prior report. Pt reports burning with voids Voiding Methods Bedside Commode Bedside Commode Bedside Commode Laboratory Results WBC 7.31 k/cumm (4.4-10.8) D 06/27/19 07:05 RBC 3.48 m/cumm (4.00-5.20) L 06/27/19 07:05 Hgb 9.1 g/dL (12.0-15.5) L 06/27/19 07:05 Hct 29.3 % (36.0-46.0) L 06/27/19 07:05 MCV 84.2 fL (80-95) 06/27/19 07:05 MCH 26.1 pg (27.0-33.0) L 06/27/19 07:05 MCHC 31.1 g/dL (32.0-36.0) L 06/27/19 07:05 RDW 16.0 % (11.7-14.6) H 06/27/19 07:05 Plt Count 248 x1000/uL (130-400) 06/27/19 07:05 MPV 9.6 fL (8.0-11.0) 06/27/19 07:05 Immature Gran % 0.3 06/27/19 07:05 Neutrophils % 66.4 06/27/19 07:05 Lymphocytes % 21.1 06/27/19 07:05 Monocytes % 9.8 06/27/19 07:05 Eosinophils % 1.9 06/27/19 07:05 Basophils % 0.5 06/27/19 07:05 Absolute Neutrophils 4.85 k/cumm (1.2-6.7) 06/27/19 07:05 Absolute Lymphocytes 1.54 k/cumm (1.2-3.4) 06/27/19 07:05 Absolute Monocytes 0.72 k/cumm (0.11-0.7) H 06/27/19 07:05 Absolute Eosinophils 0.14 k/cumm (0.0-0.7) 06/27/19 07:05 Absolute Basophils 0.04 k/cumm (0.0-0.2) 06/27/19 07:05 Differential Comment Rbc morph reviewed 06/26/19 06:05 RBC Morphology See below 06/26/19 06:05 Hypochromasia 1+ 06/26/19 06:05 Anisocytosis 1+ 06/26/19 06:05 APTT 39.1 sec (21.0-31.4) H 06/27/19 07:05 Sodium 142 mmol/L (136-145) 06/27/19 07:05 Potassium 3.5 mmol/L (3.5-5.1) 06/27/19 07:05 Chloride 106 mmol/L (98-107) 06/27/19 07:05 Carbon Dioxide 31.0 mmol/L (21.0-32.0) 06/27/19 07:05 Anion Gap 5.0 mmol/L (3-11) 06/27/19 07:05 BUN 11 mg/dL (7-18) 06/27/19 07:05 Creatinine 0.69 mg/dL (0.55-1.02) 06/27/19 07:05 Estimated GFR/1.73 m2 >= 60.00 (mL/min/1.73m2) 06/27/19 07:05 Glucose 101 mg/dL (74-106) 06/27/19 07:05 Calcium 9.9 mg/dL (8.5-10.1) 06/27/19 07:05 Magnesium 1.9 mg/dL (1.8-2.4) 06/27/19 07:05 Troponin I 0.42 ng/Ml (<0.06) H* 06/27/19 07:05 NT-Pro-B Natriuret Pep 1234 pg/mL (<300) 06/26/19 06:05 Triglycerides 94 mg/dL (<150) 06/26/19 06:05 Total Cholesterol 141 mg/dL (<200) 06/26/19 06:05 LDL Cholesterol, Calc 84 mg/dL 06/26/19 06:05 HDL Cholesterol 39 mg/dL (40-60) L 06/26/19 06:05 TSH 0.74 uIU/mL (0.36-3.74) 06/26/19 06:05
[2019-06-27] MEDS: Cholecalciferol (Vitamin D3) 1,000 UNIT TAB 2000 UNITS PO (08:46)
[2019-06-27] MEDS: Clopidogrel 75 MG TAB PO (08:47)
[2019-06-27] MEDS: Isosorbide Mononitrate 60 MG TABCR 120 MG PO (08:47)
[2019-06-27] MEDS: Aspirin E.C. 81 MG TABEC PO (08:47)
[2019-06-27] MEDS: Docusate Sodium 100 MG CAP PO (08:48)
[2019-06-27] MEDS: Acetaminophen 500 MG TAB 1000 MG PO (08:54)
--- NOTE | 2019-06-27 09:07 | DI.US_ITS ---
APPROVED REPORT EXAM: Comprehensive 2D, Doppler, and color-flow Echocardiogram Patient Location: In-Patient [employer] Distributor: RDAHA Brasher (AE) Rhythm: NSR Indications: NSTEMI Conclusion Left Ventricle : The left ventricle is normal size. Moderate concentric ventricular hypertrophy with sigmoid shaped septum. Left ventricular systolic function is hyperdynamic. The basal anteroseptal wa ll is mildly hypokinetic. The basal inferoseptal wall is mildly hypokinetic. The mid anteroseptal wall is mildly hypokinetic. The mid inferoseptal wall is mildly hypokinetic. All other wall segments are normal. There is grade 2 diastolic dysfunction. LVEF is estimated to be 65-70%. Right Ventricle : The right ventricle is normal in size. The right ventricular appears normal in fuct ion. Atria : Left atrium is mildly dilated. The right atrium size is normal. Aortic Valve : Aortic valve is trileaflet. Aortic valve leaflets are sclerotic but open well. No aort ic regurgitation is present. 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 Mild to moderate mitral reg urgitation. No evidence of mitral valve stenosis. Tricuspid Valve : The tricuspid valve leaflets are thickened , but open well. Moderate tricuspid regu rgitation. Great Vessels : IVC is normal in size and collapses >50% with inspiration. Estimated RVSP is 53-56 m mHg. Compared to echocardiogram dated 01/22/2015, estimated RV pressure is slightly increased. There is als o now wall motion abnormalities noted. Wall motion Left Ventricle The left ventricle is normal size. Left ventricular systolic function is hyperdynamic. Moderate eduard ntric ventricular hypertrophy with sigmoid shaped septum. The basal anteroseptal wall is mildly hypok inetic. The basal inferoseptal wall is mildly hypokinetic. The mid anteroseptal wall is mildly hypoki netic. The mid inferoseptal wall is mildly hypokinetic. All other wall segments are normal. There is grade 2 diastolic dysfunction. LVEF is estimated to be 65-70%. Right Ventricle The right ventricle is normal in size. The right ventricular appears normal in fuction. Atria Left atrium is mildly dilated. The right atrium size is normal. Aortic Valve Aortic valve is trileaflet. Aortic valve leaflets are sclerotic but open well. Aortic sclerosis witho ut stenosis No aortic regurgitation is present. 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 No evidence of mitral valve stenosis. Mild to moderate mitral regurgitation. Tricuspid Valve The tricuspid valve leaflets are thickened , but open well. Moderate tricuspid regurgitation. Great Vessels The aortic root is normal in size. IVC is normal in size and collapses >50% with inspiration. Estimat ed RVSP is 53-56 mmHg. Pericardium There is no pericardial effusion. 2D Dimensions IVSd 1.35 cm F: 0.6-1.0 LV EDV A2C 78.20 mL PWd 1.35 cm F: 0.6 - 1.0 LV EDV A4C 60.80 mL LVDd 4.10 cm F: 3.8 - 5.2 LA Volume Index A2C 35.04 mL/m2 LVDs 2.15 cm F: 2.2 - 3.5 LA Volume Index A4C 36.03 mL/m2 Aortic Root 3.05 cm F: 2.7 - 3.3 LA Volume Index Biplane 35.65 mL/m2 RA Area A4C 8.07 cm2 LA Area A4C 20.36 cm2 LVOT 1.85 cm (M/F) 1.5-2.5 LA Area A2C 20.01 cm2 Ascending Aorta 2.66 cm F: 2.3 - 3.1 EF AP4 78.29 % LVEF (Teich) 79.00 % EF AP2 62.02 % LVEF (Rae's) 70.10 % F: 54 - 74 EF BP 70.10 % LV Volume 54.43 mL F: 46 - 106 LV Volume Index 32.39 mL/m2 F: 29 - 61 FS 47.15 % LV Diastology E/A Ratio 1.1 MED E' 0.06 (>0.07 m/s) LV E/e MED 20.20 (<14) LAT E' 0.07 (>0.1 m/s) LV E/e LAT 16.50 (<14) Pulm Vein s 0.81 m/s PV S/D Ratio 1.15 Pulm Vein d 0.70 m/s Aortic Valve LVOT Area 2.77 cm2 LVOT Peak Sina. 1.55 m/s LVOT Mean Sina. 1.15 m/s LVOT Peak Gr. 10.10 mmHg AMAURI Vmax Index 1.17 cm2/m2 LVOT Mean Gr. 5.75 mmHg LVOT VTI 0.30 m AMAURI Mean Sina. Index 1.19 cm2/m2 AoV Peak Sina. 2.25 (0.5-1.3 m/s) AoV Mean Sina. 1.59 m/s AO Peak GR. 20.23 mmHg AO Mean GR. 11.44 (<5 mmHg) VTI Ratio 0.67 AMAURI (VTI) 1.85 (2.5-4.5 cm2) AMAURI (VTI) Index 1.10 cm/m2 Mitral Valve MV E Max Sina. 1.17 (0.4-1.3 m/s) MV A Velocity 1.05 (0.4-1.3 m/s) E/A Ratio 1.07 MV Decel. Time 217.10 (160-240 msec) MV PHT 62.97 msec MVA PHT 3.45 cm2 Pulmonary Valve PV Peak Velocity 1.48 (0.5-1.5 m/s) Tricuspid Valve TR P. Velocity 3.65 m/s TV Regurg Vmax 3.65 m/s RAP Estimate 3.00 mmHg RVSP 56.00 mmHg TR P. Gradient 53.30 mmHg
--- NOTE | 2019-06-27 09:36 | CMPROGNOTE_ITS ---
Care Management Progress Note Syed transferred to [facility] for anticipated cardiac catheterization, she transported via EMS coordinated by Nursing [employer] Advisor.
--- NOTE | 2019-06-27 09:36 | PDOC.CMPRO ---
Care Management Progress Note Syed transferred to [facility] for anticipated cardiac catheterization, she transported via EMS coordinated by Nursing Can Sterilizer.
[2019-06-27] MEDS: Bisacodyl 5 MG TABEC PO (10:30)
[2019-06-27] MEDS: Polyethylene Glycol 3350 17 GM PACKET PO (10:31)
[2019-06-27] MEDS: Potassium Chloride 20 MEQ TABCR 40 MEQ PO (11:48)
--- NOTE | 2019-06-27 12:44 | W.PM.PROGNOT ---
Date of Service Date of service: 06/27/19 Time of Service: 12:45 Assessment and Plan Assessment and plan (1) NSTEMI (non-ST elevated myocardial infarction): Status: Acute Assessment and plan: I the opportunity speak with Dr. Khan from the hospitalist service regarding this morning's echocardiogram. The plan at this time is to transfer the patient to [facility] cardiology service for further evaluation of her heart function. I spoke to the patient regarding the plan and she is agreement with the transfer. (2) H/O rectocele repair: Status: Acute Assessment and plan: She has no need of additional medications or exams for her rectocele repair. Plan would be to see her in surgical follow-up in approximately 6 weeks. Subjective Subjective Patient reports: no new complaints and bowel movement (No issues with constipation or pain with defecation); denies shortness of breath Interval history since last seen: Echocardiogram performed this morning. Comparison between images several years ago and today's images show wall motion abnormalities. Her troponin matt slightly from yesterday's value. Vital signs remained stable. Exam Const General: no acute distress Resp Effort & Inspection: normal respiratory effort Cardio Rate: regular rate Rhythm: regular rhythm GI Inspection: normal to inspection General: deferred Skin General skin exam: no rashes or lesions noted Extrem General: normal to inspection, full ROM and normal capillary refill Objective Objective Clinical Data: Abnormal lab results 06/26/19 06/26/19 06/26/19 Range/Units 12:07 15:55 15:55 RBC (4.00-5.20) m/cumm Hgb (12.0-15.5) g/dL Hct (36.0-46.0) % MCH (27.0-33.0) pg MCHC (32.0-36.0) g/dL RDW (11.7-14.6) % Absolute Monocytes (0.11-0.7) k/cumm APTT 47.5 H D (21.0-31.4) sec Troponin I 0.48 H* 0.55 H* (<0.06) ng/Ml Crossmatch 06/26/19 06/27/19 06/27/19 Range/Units 20:01 07:05 07:05 RBC (4.00-5.20) m/cumm Hgb (12.0-15.5) g/dL Hct (36.0-46.0) % MCH (27.0-33.0) pg MCHC (32.0-36.0) g/dL RDW (11.7-14.6) % Absolute Monocytes (0.11-0.7) k/cumm APTT 39.1 H (21.0-31.4) sec Troponin I 0.32 H* 0.42 H* (<0.06) ng/Ml Crossmatch 06/27/19 06/27/19 Range/Units 07:05 11:23 RBC 3.48 L (4.00-5.20) m/cumm Hgb 9.1 L (12.0-15.5) g/dL Hct 29.3 L (36.0-46.0) % MCH 26.1 L (27.0-33.0) pg MCHC 31.1 L (32.0-36.0) g/dL RDW 16.0 H (11.7-14.6) % Absolute Monocytes 0.72 H (0.11-0.7) k/cumm APTT (21.0-31.4) sec Troponin I (<0.06) ng/Ml Crossmatch See Detail Vital Signs Temperature 98.2 F 06/27/19 12:11 Temperature Source Temporal Artery Scan 06/27/19 12:11 Pulse 73 06/27/19 12:11 Pulse Rhythm Regular 06/27/19 00:00 Pulse 64 06/27/19 11:01 Respiratory Rate 16 06/27/19 12:11 Respiratory Effort Non-Labored 06/27/19 12:11 Respiratory Depth Normal 06/27/19 12:11 Respiratory Pattern Normal 06/27/19 12:11 Blood Pressure 138/88 06/27/19 12:11 Blood Pressure Mean 104 06/27/19 12:11 Blood Pressure Position Supine 06/27/19 12:11 Pulse Oximetry 95 06/27/19 12:11 Respiratory End-tidal CO2 39 06/25/19 13:30 Oxygen Delivery Method Nasal Cannula 06/27/19 12:11 Oxygen Flow Rate 2 06/27/19 12:11 Pain Level 0 06/27/19 12:11 Comment 06/26/19 05:20 Intake & Output 06/26/19 06/27/1919 23:59 11:59 23:59 Intake Total 161.058 / 2564.058 614.442 / 614.442 Output Total 1900 / 2710 800 / 1100 300 / 1100 Balance -1738.942 / -145.942 -185.558 / -485.558 -300 / -485.558 Weight 166 lb 0.129 oz Intake: IV 161.058 / 1834.058 134.442 / 134.442 Oral 480 / 480 Output: Urine 1900 / 2710 800 / 1100 300 / 1100 Other: Urine Color Yellow Yellow Yellow Urine Appearance Clear Clear Clear Urine Odor Normal None None Comment small amt of serosanguinous drainage noted in the commode. Urine not visualized but last void had serosanguinous fluid mixed in per prior report. Pt reports burning with voids Voiding Methods Bedside Commode Bedside Commode Bedside Commode Laboratory Results WBC 7.31 k/cumm (4.4-10.8) D 06/27/19 07:05 RBC 3.48 m/cumm (4.00-5.20) L 06/27/19 07:05 Hgb 9.1 g/dL (12.0-15.5) L 06/27/19 07:05 Hct 29.3 % (36.0-46.0) L 06/27/19 07:05 MCV 84.2 fL (80-95) 06/27/19 07:05 MCH 26.1 pg (27.0-33.0) L 06/27/19 07:05 MCHC 31.1 g/dL (32.0-36.0) L 06/27/19 07:05 RDW 16.0 % (11.7-14.6) H 06/27/19 07:05 Plt Count 248 x1000/uL (130-400) 06/27/19 07:05 MPV 9.6 fL (8.0-11.0) 06/27/19 07:05 Immature Gran % 0.3 06/27/19 07:05 Neutrophils % 66.4 06/27/19 07:05 Lymphocytes % 21.1 06/27/19 07:05 Monocytes % 9.8 06/27/19 07:05 Eosinophils % 1.9 06/27/19 07:05 Basophils % 0.5 06/27/19 07:05 Absolute Neutrophils 4.85 k/cumm (1.2-6.7) 06/27/19 07:05 Absolute Lymphocytes 1.54 k/cumm (1.2-3.4) 06/27/19 07:05 Absolute Monocytes 0.72 k/cumm (0.11-0.7) H 06/27/19 07:05 Absolute Eosinophils 0.14 k/cumm (0.0-0.7) 06/27/19 07:05 Absolute Basophils 0.04 k/cumm (0.0-0.2) 06/27/19 07:05 Differential Comment Rbc morph reviewed 06/26/19 06:05 RBC Morphology See below 06/26/19 06:05 Hypochromasia 1+ 06/26/19 06:05 Anisocytosis 1+ 06/26/19 06:05 APTT 39.1 sec (21.0-31.4) H 06/27/19 07:05 Sodium 142 mmol/L (136-145) 06/27/19 07:05 Potassium 3.5 mmol/L (3.5-5.1) 06/27/19 07:05 Chloride 106 mmol/L (98-107) 06/27/19 07:05 Carbon Dioxide 31.0 mmol/L (21.0-32.0) 06/27/19 07:05 Anion Gap 5.0 mmol/L (3-11) 06/27/19 07:05 BUN 11 mg/dL (7-18) 06/27/19 07:05 Creatinine 0.69 mg/dL (0.55-1.02) 06/27/19 07:05 Estimated GFR/1.73 m2 >= 60.00 (mL/min/1.73m2) 06/27/19 07:05 Glucose 101 mg/dL (74-106) 06/27/19 07:05 Calcium 9.9 mg/dL (8.5-10.1) 06/27/19 07:05 Magnesium 1.9 mg/dL (1.8-2.4) 06/27/19 07:05 Troponin I 0.42 ng/Ml (<0.06) H* 06/27/19 07:05 NT-Pro-B Natriuret Pep 1234 pg/mL (<300) 06/26/19 06:05 Triglycerides 94 mg/dL (<150) 06/26/19 06:05 Total Cholesterol 141 mg/dL (<200) 06/26/19 06:05 LDL Cholesterol, Calc 84 mg/dL 06/26/19 06:05 HDL Cholesterol 39 mg/dL (40-60) L 06/26/19 06:05 TSH 0.74 uIU/mL (0.36-3.74) 06/26/19 06:05 Patient ABO/Rh O Positive 06/27/19 11:23 Antibody Screen Negative 06/27/19 11:23 Crossmatch See Detail 06/27/19 11:23
[2019-06-27] MEDS: Pantoprazole 40 MG VIAL IVP (14:33)
[2019-06-27] MEDS: diphenhydrAMINE 25 MG CAP PO (14:43)
--- NOTE | 2019-06-27 15:09 | PHARADMIT ---
Admission Pharmacy Clinical Review POST-OP A&P REPAIR,W/NSTEMI AWAITING TRANSFER TO [facility] WHEN BED AVAILABLE. Code Status DNR/DNI Current Weight Wgt75.3 kg Renally Cleared and Narrow Therapeutic Index Meds CrCl~ 42.3 mL/min Meds-OK QTc Value / Action Taken BP Control, Fever BP-138/88 Tmax-36.8C Electrolytes reviewed Na- 142 K+3.5 Mag-1.9 DVT Prophylaxis Plavix,ASA,Heparin Opiate Usage / Scheduled Bowel Regimen Ordered Yes Yes Plt/SCr for Heparin / Enoxaparin Plts-248 SCr-0.69 INR for Warfarin NA H/H stable, WBC/Bands H&H-9.1/29.3 WBC-7.31 Antibiotic appropriateness Ancef -pre-op Cultures and Sensitivities none Surgical ABX d/c within 24 hr Yes DM control / Insulin Dosing BG-101 Heart Failure (Check EF%) (ANIYA's, B-Block, Diuretics) Lasix, Toprol-XL, Imdur, NTG, Quinapril IV to PO Switch No Home Meds Reviewed Yes Home Meds Not Ordered Nexium Comments TROPONINS-0.42 ^ 0.32 ^ 0.55 ^0.48 ^ 0.19
--- NOTE | 2019-06-27 15:11 | DSE_ITS ---
Date of service: 06/27/19 Time of Service: 15:13 DS: Diagnosis Discharge Diagnosis (1) NSTEMI (non-ST elevated myocardial infarction): Status: Acute (2) H/O rectocele repair: Status: Acute (3) PVCs (premature ventricular contractions): Status: Chronic (4) Bradycardia following surgery: Status: Resolved (5) Postoperative nausea and vomiting: Status: Resolved (6) Hyperlipidemia: Status: Chronic (7) AAA (abdominal aortic aneurysm) without rupture: Status: Chronic (8) Acute on chronic anemia: Status: Acute Discharge Plan Disposition Patient Disposition: [facility] Condition: Stable Discharge Details Reason For Visit: POST OP A+P REPAIR, TRANSFER TO ICU OVERFLOW Admit Date/Time: 06/26/19 12:56 Admit Provider: Fang Mcdonald Attending Provider: Fang Mcdonald Primary Care Provider: Tyesha Conner Hospital Course Hospital Course: Ms Toscano is a 78 year old female with PMHx of CAD s/p stents, as well as sinus arrhythmia, PVCs, AAA, admitted to [facility] CREDIT RESOLUTION REPRESENTATIVE service under Dr Mcdonald following anterior and posterior colporrhaphy for stage 3 rectocele and stage 2 cystocele on 06/25/19. Postoperatively the patient had several episodes of sinus bradycardia associated with nausea (unclear if nausea was triggering bradycardia or vice versa). For this, the hospitalist service was consulted, and the patient was transferred to a telemetry bed. The patient's two initial troponins were negative, but she was noted to have troponin elevation the following morning - the highest it got was 0.55, then trending down to 0.32, then back up again to 0.42 on 06/27/19 in am. When the patient was first noted to have elevations of tr oponin, she was started on asa, plavix, and heparin gtt. She was trasnferred to the ICU. No further bradycardic events were noted. Beta blockers were held. Cardiology consultation was sought, and echo cardiogram done, showing wall motion abnormalities (hypokinesis) in basal and mid anteroseptal mason as well as basal and mid inferoseptal mason. EF of 65-70%, grade 2 diastolic dysfunction present. Recommendation was made to transfer the patient to [facility] for a cardiac catheterization, unavailable at [facility]. The patient was accepted in transfer by Dr Andrew of [facility] cardiology, whose assistance is greatly appreciated. The patient is hemodynamically stable for transfer and agrees for transfer. Care for patient as well as completion of her discharge paperwork on day of discharge took 60 minutes. Home Meds and New Rx's Prescriptions: New clopidogrel [Plavix] 75 mg Tablet 75 mg PO DAILY Qty: 0 RF: 0 aspirin 81 mg Tablet,Delayed Release (Dr/Ec) 81 mg PO DAILY Qty: 0 RF: 0 metoclopramide HCl 5 mg/mL Solution 10 mg IVP Q6H PRN PRNQty: 0 RF: 0 docusate sodium [Colace] 100 mg Capsule 100 mg PO BID Qty: 0 RF: 0 heparin (porcine) in 5 % dex 25,000 unit/250 mL(100 unit/mL) Parenteral Solution 25,000 units IV INFUSION Qty: 0 RF: 0 ondansetron HCl (PF) 4 mg/2 mL Solution 4 mg IVP Q6H PRN PRNQty: 0 RF: 0 morphine 4 mg/mL Solution 2 - 4 mg IVP Q1H PRN PRNQty: 0 RF: 0 oxycodone-acetaminophen 5-325 mg Tablet 1 tab PO Q4H PRN PRNQty: 0 RF: 0 Continued furosemide [Lasix] 20 MG tablet 40 mg PO DAILY RF: 0 polyethylene glycol 3350 [Miralax] 17 GM powder in packet 17 g PO DAILY PRNQty: 255 RF: 0 atorvastatin [Lipitor] 40 MG tablet 40 mg PO HS RF: 0 acetaminophen [Mapap Extra Strength] 500 MG tablet 1,000 mg PO TID PRN PRNRF: 0 isosorbide mononitrate 120 MG tablet extended release 24 hr 120 mg PO DAILY RF: 0 nitroglycerin 0.4 MG tablet, sublingual 0.4 mg Sublingual DIRECTED RF: 0 quinapril 20 MG tablet 20 mg PO DAILY RF: 0 mometasone 15 GM cream 1 ea Topical BID PRN PRNRF: 0 coenzyme Q10 [CoQ-10] 100 MG capsule 100 mg PO DAILY RF: 0 cholecalciferol (vitamin D3) [Vitamin D3] 2,000 UNIT capsule 2,000 unit PO DAILY RF: 0 Fiber Gummies 2.5 GM tablet,chewable 1 ea PO DAILY RF: 0 esomeprazole magnesium [Nexium] 40 MG capsule,delayed release(DR/EC) 40 mg PO BID Qty: 0 RF: 0 vitamin E 400 unit Capsule 400 unit PO DAILY RF: 0 Salonpas Deep Relieving 3.1-15-10 % Gel 1 applic TOPICAL PRN PRNRF: 0 bisacodyl 5 mg Tablet 5 mg PO PRN PRNRF: 0 Discontinued metoprolol succinate 100 MG tablet extended release 24 hr 100 mg PO BID RF: 0 aspirin [Aspir-81] 81 MG tablet,delayed release (DR/EC) 162 mg PO DAILY RF: 0 Discharge Instructions Activity:: OOB to chair Diet:: Low Sodium Discharge Orders Discharge Orders: Discharge Order (Routine); Ordered 06/27/19 Ordered By: Jennifer Khan DS: Summary Status at Discharge Functional status at discharge: independent ambulation Overall status at discharge: patient is not back to baseline Mental Status: mental status grossly normal Speech and Movement: speech and movement normal Mood: congruent mood Affect: normal affect Exam Narrative Exam Narrative: General: Very pleasant elderly female, A&OX3, laying comfortably in bed HEENT: EOMI, MMM Cardiovascular: RRR, no m/r/g Lungs: CTAB Gastrointestinal: abdomen is soft, nontender, mildly distended Extremities: no e/c/c BLE's Psych Mental Status: mental status grossly normal Speech and Movement: speech and movement normal Mood: congruent mood Affect: normal affect DS: Data Vitals/I&O Vitals and I&O: Vital Signs Temperature 36.6 C 06/27/19 14:33 Temperature Source Temporal Artery Scan 06/27/19 12:11 Pulse 69 06/27/19 12:13 Pulse Rhythm Regular 06/27/19 00:00 Pulse 64 06/27/19 13:00 Respiratory Rate 19 06/27/19 13:00 Respiratory Effort Non-Labored 06/27/19 12:11 Respiratory Depth Normal 06/27/19 12:11 Respiratory Pattern Normal 06/27/19 12:11 Blood Pressure 138/88 06/27/19 12:13 Blood Pressure Mean 97 06/27/19 12:13 Blood Pressure Position Supine 06/27/19 12:11 Pulse Oximetry 96 06/27/19 13:00 Respiratory End-tidal CO2 39 06/25/19 13:30 Oxygen Delivery Method Nasal Cannula 06/27/19 12:11 Oxygen Flow Rate 2 06/27/19 12:11 Pain Level 0 06/27/19 14:33 Comment 06/26/19 05:20 Intake & Output 06/26/19 06/27/19 06/27/19 23:59 11:59 23:59 Intake Total 161.058 / 2564.058 614.442 / 614.442 Output Total 1900 / 2710 500 / 800 300 / 800 Balance -1738.942 / -145.942 114.442 / -185.558 -300 / -185.558 Weight 75.3 kg Intake: IV 161.058 / 1834.058 134.442 / 134.442 Oral 480 / 480 Output: Urine 1900 / 2710 500 / 800 300 / 800 Other: Urine Color Yellow Yellow Yellow Urine Appearance Clear Clear Clear Urine Odor Normal None Comment small amt of serosanguinous drainage noted in the commode. Urine not visualized but last void had serosanguinous fluid mixed in per prior report. Pt reports burning with voids Stool Occult Blood Negative Stool Size Moderate Stool Characteristics Soft Formed Voiding Methods Bedside Commode Bedside Commode Bedside Commode Data Completed and Pending Completed studies during hospitalization [Text1]: Echo: Left Ventricle : The left ventricle is normal size. Moderate concentric ventricular hypertrophy with sigmoid shaped septum. Left ventricular systolic function is hyperdynamic. The basal anteroseptal wall is mildly hypokinetic. The basal inferoseptal wall is mildly hypokinetic. The mid anteroseptal wall is mildly hypokinetic. The mid inferoseptal wall is mildly hypokinetic. All other wall segments are normal. There is grade 2 diastolic dysfunction. LVEF is estimated to be 65-70%. Right Ventricle : The right ventricle is normal in size. The right ventricular appears normal in fuction. Atria : Left atrium is mildly dilated. The right atrium size is normal. Aortic Valve : Aortic valve is trileaflet. Aortic valve leaflets are sclerotic but open well. No aortic regurgitation is present. 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 Mild to moderate mitral regurgitation. No evidence of mitral valve stenosis. Tricuspid Valve : The tricuspid valve leaflets are thickened , but open well. Moderate tricuspid regurgitation. Great Vessels : IVC is normal in size and collapses >50% with inspiration. Estimated RVSP is 53-56 mmHg. Compared to echocardiogram dated 01/22/2015, estimated RV pressure is slightly increased. There is also now wall motion abnormalities noted. Labs on day of discharge: Labs from last 24 hours 06/27/19 06/27/19 06/27/19 15:00 11:23 07:05 WBC 7.31 D RBC 3.48 L Hgb 9.1 L Hct 29.3 L MCV 84.2 MCH 26.1 L MCHC 31.1 L RDW 16.0 H Plt Count 248 MPV 9.6 Immature Gran % 0.3 Neutrophils % 66.4 Lymphocytes % 21.1 Monocytes % 9.8 Eosinophils % 1.9 Basophils % 0.5 Absolute Neutrophils 4.85 Absolute Lymphocytes 1.54 Absolute Monocytes 0.72 H Absolute Eosinophils 0.14 Absolute Basophils 0.04 APTT Pending Sodium Potassium Chloride Carbon Dioxide Anion Gap BUN Creatinine Estimated GFR/1.73 m2 Glucose Calcium Magnesium Troponin I Patient ABO/Rh O Positive Antibody Screen Negative Crossmatch See Detail 06/27/19 06/27/19 06/26/19 07:05 07:05 20:01 WBC RBC Hgb Hct MCV MCH MCHC RDW Plt Count MPV Immature Gran % Neutrophils % Lymphocytes % Monocytes % Eosinophils % Basophils % Absolute Neutrophils Absolute Lymphocytes Absolute Monocytes Absolute Eosinophils Absolute Basophils APTT 39.1 H Sodium 142 Potassium 3.5 Chloride 106 Carbon Dioxide 31.0 Anion Gap 5.0 BUN 11 Creatinine 0.69 Estimated GFR/1.73 m2 >= 60.00 Glucose 101 Calcium 9.9 Magnesium 1.9 Troponin I 0.42 H* 0.32 H* Patient ABO/Rh Antibody Screen Crossmatch 06/26/19 06/26/19 15:55 15:55 WBC RBC Hgb Hct MCV MCH MCHC RDW Plt Count MPV Immature Gran % Neutrophils % Lymphocytes % Monocytes % Eosinophils % Basophils % Absolute Neutrophils Absolute Lymphocytes Absolute Monocytes Absolute Eosinophils Absolute Basophils APTT 47.5 H D Sodium Potassium Chloride Carbon Dioxide Anion Gap BUN Creatinine Estimated GFR/1.73 m2 Glucose Calcium Magnesium Troponin I 0.55 H* Patient ABO/Rh Antibody Screen Crossmatch [facility] Medical History (Updated 06/27/19 @ 15:14 by Jennifer Khan MD) AAA (abdominal aortic aneurysm) without rupture (Chronic) Bradycardia following surgery (Resolved) Colon, diverticulosis (Chronic) Coronary artery disease (Chronic) Dermatitis, eczematoid (Chronic) Diverticulitis large intestine (Chronic) GERD (gastroesophageal reflux disease) (Chronic) Hyperglycemia (Chronic) Hyperlipidemia (Chronic) Hypertension (Chronic) IBS (irritable bowel syndrome) (Chronic) Migraine (Inactive) 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 Pt will have A&P repair after medical clearance.. Surgical History (Updated 06/26/19 @ 16:53 by Fang Mcdonald MD) Angioplasty (Resolved) H/O heart artery stent (Chronic) x3 H/O rectocele repair (Acute) 06/25/2019 anterior and posterior colporrhaphy. Postop course complicated by an STEMI History of colonoscopy (Chronic) History of tubal ligation (Chronic) Hx of bilateral cataract extraction (Acute) ureteral stent (Resolved) 2004 Vaginal hysterectomy (Resolved ~1988) for endometriosis. Social History Smoking/Tobacco Use Status: Former Tobacco Use Alcohol Intake: never Drug use: Never Substance use type: does not use Household members: none and other Details: Do you feel safe at home: Yes Female Reproductive History Menstrual Menopause type: surgical
[2019-06-27 15:52] LABS: PTT Activated 65.2 sec (21.0-31.4)
[2019-06-27] MEDS: Acetaminophen 325 MG TAB 650 MG PO (16:12)
--- NOTE | 2019-06-27 16:41 | PDOC.CMDIS ---
Care Management Discharge Reason for Hospitalization: Anterior and Posterior Colporrhaphy
[2019-06-27] MEDS: Normal Saline Flush 10 ML SYR IV (18:16)
--- NOTE | 2019-06-28 09:14 | NUR.NOTE ---
Nursing Note: This nurse ending this unit of blood in and for computer documentation. Note patient was transferred to [facility] on 06/27/19 at 1846.
== END 2019-06-27 18:42 | disposition short-term general hospital (02) | DRG 393 ==
LOC: OBS 14:10 → ICU 18:48
PROVIDERS: Internal Medicine; Admitting Provider Obstetrics & Gynecology Gynecology; PCP Nurse Practitioner; Visit Provider Obstetrics & Gynecology Gynecology
PROC: 2Y44X5Z Packing of Female Genital Tract using Packing Material (ICD-10-PCS; CPT 57260; principal; 2019-06-25 10:30)
DX: K91.89 Other postprocedural complications and disorders of digestive system (principal); I21.4 Non-ST elevation (NSTEMI) myocardial infarction; R11.2 Nausea with vomiting, unspecified; N81.6 Rectocele; N81.10 Cystocele, unspecified; R00.1 Bradycardia, unspecified; I71.4 Abdominal aortic aneurysm, without rupture; I08.3 Combined rheumatic disorders of mitral, aortic and tricuspid valves; E78.5 Hyperlipidemia, unspecified; K21.9 Gastro-esophageal reflux disease without esophagitis; I25.10 Atherosclerotic heart disease of native coronary artery without angina pectoris; Z95.5 Presence of coronary angioplasty implant and graft
CPT/HCPCS: 57260; 36415; 80048; 80061; 85027; 86850; 86900; 86901; 86920; 93306; 99223; 99232; 99239; 99254; NC; 83735; 83880; 84443; 84484; 85025; 85730; 93005; 93010; 99214; J0690; J1100; J1885; J1941; J2405; J2765; J3010; P9016

== ENCOUNTER → 2019-06-26 08:05 | Outpatient (BNVA) | payer MEDICARE, SELFPAY ==
--- NOTE | 2019-07-02 13:34 | W.PM.OP ---
Operative Note Operative Note Procedure Description: Attention was then turned to the anterior colporrhaphy. A single Allis clamp was placed 1 cm inferior to the urethral meatus and at the most proximal portion of the cystocele. The vaginal epithelium was infiltrated with 1% lidocaine with epinephrine in a transverse fashion at the base and in the midline to the distal Allis clamp. A scalpel was used to make a superficial transverse incision at the base of the cystocele. Metzenbaum scissor was then used to perform sharp dissection of the epithelium in the midline from the underlying muscularis and adventitia to the level of the pubic symphysis. The epithelium was then incised and this tissue dissected laterally. The distal muscularis and adventitia was then plicated using interrupted 2-0 Vicryl sutures a contiguous fashion to the most proximal portion of the cystocele. The vaginal epithelium was then trimmed and a edges reapproximated with a running suture of 0 Vicryl. Both posterior and anterior colporrhaphy sites were hemostatic At the completion of the procedure. Vaginal packing was then placed into the vagina and trimmed the patient was then placed in dorsal supine position awakened extubated and transported recovery area in stable condition. All sponge lap needle counts correct x2.
== END ==
PROVIDERS: PCP Nurse Practitioner; Referring Provider Nurse Practitioner; Visit Provider Internal Medicine Cardiovascular Disease
DX: R69 Illness, unspecified (principal)

== ENCOUNTER 2019-08-12 11:24 | Outpatient (CLI) | payer MEDICARE, SELFPAY ==
[2019-08-12 14:05] LABS: CREATININE 0.68 mg/dL (0.55-1.02); Calcium 10.7 mg/dL (8.5-10.1)
[2019-08-13 07:55] LABS: Vitamin D 25 Total 30.2 ng/ml (30-100)
== END 2019-08-12 11:44 ==
PROVIDERS: PCP Nurse Practitioner; Visit Provider Student in an Organized Health Care Education/Training Program
DX: E21.3 Hyperparathyroidism, unspecified (principal); E83.52 Hypercalcemia
CPT/HCPCS: 36415; 82306; 82310; 82565

== ENCOUNTER 2019-08-14 11:39 | Outpatient (REF) | payer MEDICARE, SELFPAY ==
[2019-08-15 11:12] LABS: Calcium Urine 10.6 mg/dL (See Note); Calcium Urine 24 hr 180 mg/24hrs (100-300); Timed Urine Volume 1700 mL
== END 2019-08-14 11:59 ==
LOC: NCHCN 11:39
PROVIDERS: PCP Nurse Practitioner; Visit Provider Nurse Practitioner
DX: E21.3 Hyperparathyroidism, unspecified (principal); E83.52 Hypercalcemia
CPT/HCPCS: 81050; 82340

== ENCOUNTER 2019-08-26 13:56 | Outpatient (CLI) | payer MEDICARE, SELFPAY ==
--- NOTE | 2019-08-26 16:34 | DI.DEXA_ITS ---
EXAM: XR DEXA BONE DENSITY W/WO KARISHMA INDICATION: HYPERPARATHYROIDISM, E21.3, HYPERCALCEMIA, E83.52, HIGH NORMAL PTH. COMPARISON: RIGHT HIP COMPLETE from 01/24/2013 TECHNIQUE: 2D digital imaging was performed. FINDINGS: Evaluation of the lateral spine shows no compression deformities. Evaluation of the left hip shows a total T-score of -0.7 and a Z-score of 1.2. This is within normal limits. Evaluation of the lumbar spine shows a total T-score of 0.2 and a Z-score of 2.8. This is within nor mal limits. There is no evidence of osteoporosis. IMPRESSION: No evidence of osteoporosis.
== END 2019-08-26 14:16 ==
PROVIDERS: PCP Nurse Practitioner; Visit Provider Student in an Organized Health Care Education/Training Program
DX: E83.52 Hypercalcemia (principal); E21.3 Hyperparathyroidism, unspecified
CPT/HCPCS: 77080

== ENCOUNTER 2020-06-23 13:36 | Outpatient (REF) | payer MEDICARE, SELFPAY ==
[2020-06-23 20:31] LABS: Iron 44 ug/dL (50-170); Total Iron Binding Capacity 360 ug/dL (250-450); Transferrin Sat 12 % (15-50)
[2020-06-23 20:34] LABS: ALT 19 U/L (14-59); AST 16 U/L (15-37); Albumin 4.4 g/dL (3.4-5.0); Alkaline Phosphatase 87 U/L (46-116); Anion Gap 6.5 mmol/L (3-11); BUN 16 mg/dL (7-18); Bilirubin, Total 0.3 mg/dL (0.2-1.0); CO2 27.5 mmol/L (21.0-32.0); CREATININE 0.86 mg/dL (0.55-1.02); Calcium 10.7 mg/dL (8.5-10.1); Calculated LDL 99 mg/dL (<100); Chloride 104 mmol/L (98-107); Cholesterol 179 mg/dL (<200); Glucose 105 mg/dL (74-106); HDL Cholesterol 40 mg/dL (40-60); Potassium 4.6 mmol/L (3.5-5.1); Sodium 138 mmol/L (136-145); Total Protein 7.3 g/dL (6.4-8.2); Triglyceride 204 mg/dL (<150)
[2020-06-23 20:42] LABS: Abs Immature Grans 0.02 10^3/uL (0.0-0.06); Absolute Basophil Count 0.08 10^3/uL (0.0-0.2); Absolute Eosinophil Count 0.14 10^3/uL (0.0-0.7); Absolute Lymphocyte Count 2.05 10^3/uL (1.2-3.4); Absolute Monocyte Count 0.63 10^3/uL (0.1-0.8); Absolute Neutrophil Count 4.81 10^3/uL (1.2-6.7); Eosinophils % 1.8; HCT 34.6 % (36.0-46.0); HGB 10.9 g/dL (11.2-15.7); Immature Grans % 0.3; Lymphocytes % 26.5; MCH 26.8 pg (27.0-33.0); MCHC 31.5 % (32.0-36.0); MCV 85.2 fL (80-95); MPV 10.1 fL (8.0-11.0); Monocytes % 8.2; Neutrophils % 62.2; Nucleated RBC 0 %; Platelet Count 318 10^3/uL (130-400); RBC 4.06 10^6/uL (3.93-5.22); RDW-SD 46.7 fL; WBC 7.73 10^3/uL (4.4-10.8)
[2020-06-23 21:31] LABS: Hemoglobin A1C 5.8 % (<5.7)
[2020-06-25 10:22] LABS: Parathyroid Hormone,Intact 64 pg/mL (19-88)
== END 2020-06-23 13:56 ==
LOC: NCHCN 13:36
PROVIDERS: PCP Nurse Practitioner; Visit Provider Physician Assistant
DX: D64.9 Anemia, unspecified (principal); E78.5 Hyperlipidemia, unspecified; R73.09 Other abnormal glucose; E21.3 Hyperparathyroidism, unspecified
CPT/HCPCS: 80053; 80061; 83036; 83540; 83550; 83970; 85025

== ENCOUNTER 2020-07-03 16:40 | Emergency (ER) | payer MEDICARE, SELFPAY ==
--- NOTE | 2020-07-03 16:42 | W.ED.GENAD ---
Discharge Plan Disposition Patient Disposition: HOME Condition: Stable Discharge Details Clinical Impression: UTI (urinary tract infection) Primary Care Provider: Tyesha Conner ED Provider: Amanda Rae Home Meds and New Rx's Prescriptions: New nitrofurantoin monohyd/m-cryst [Macrobid] 100 mg capsule 100 mg PO BID 4 Days Qty: 8 RF: 0 phenazopyridine [Pyridium] 200 mg tablet 200 mg PO TID PRN (Reason: pain) Qty: 6 RF: 0 Continued estradiol [Estrace] 0.01 % (0.1 mg/gram) cream 1 gm VG DAILY Qty: 42.5 RF: 3 amlodipine 2.5 mg tablet 2.5 mg PO DAILY RF: 0 cholecalciferol (vitamin D3) [Vitamin D3] 50 mcg (2,000 unit) capsule 50 mcg PO DAILY RF: 0 aspirin 81 mg tablet,delayed release (DR/EC) 81 mg PO DAILY RF: 0 metoprolol tartrate 50 mg tablet 50 mg PO DAILY RF: 0 furosemide [Lasix] 20 MG tablet 40 mg PO DAILY RF: 0 acetaminophen [Mapap Extra Strength] 500 MG tablet 1,000 mg PO TID PRN PRNRF: 0 isosorbide mononitrate 120 MG tablet extended release 24 hr 120 mg PO DAILY RF: 0 nitroglycerin 0.4 MG tablet, sublingual 0.4 mg Sublingual DIRECTED RF: 0 quinapril 20 MG tablet 20 mg PO DAILY RF: 0 coenzyme Q10 [CoQ-10] 100 MG capsule 100 mg PO DAILY RF: 0 cholecalciferol (vitamin D3) [Vitamin D3] 2,000 UNIT capsule 2,000 unit PO DAILY RF: 0 Fiber Gummies 2.5 GM tablet,chewable 1 ea PO DAILY RF: 0 atorvastatin [Lipitor] 40 mg tablet 40 mg PO HS RF: 0 loratadine [Claritin] 10 mg Tablet 10 mg PO DAILY RF: 0 esomeprazole magnesium [Nexium] 40 MG capsule,delayed release(DR/EC) 40 mg PO BID Qty: 0 RF: 0 bisacodyl 5 mg Tablet 5 mg PO PRN PRNRF: 0 docusate sodium [Colace] 100 mg Capsule 100 mg PO BID Qty: 0 RF: 0 Discharge Instructions Instructions: Urinary Tract Infection in Women (ED) Additional Instructions: Drink plenty of fluids and get plenty of rest. Alternate tylenol and motrin as needed and directed for pain. Take the antibiotics until finished. Take the Pyridium as needed and directed for burning with urination. Follow-up with your primary care doctor in 1 week. Return to the emergency department with any worsening or new concerning symptoms. Discharge Data Discharge Date/Time-TO BE ENTERED AT DEPARTURE: 07/03/20 17:54 Discharge Physician: Amanda Rae Medical Decision Making 79-year-old female with a history of hysterectomy, rectocele repair and bladder suspension who presents for dysuria, urinary frequency and hesitancy since yesterday. She appears nontoxic and is afebrile. Her abdomen is soft and nontender. No CVA tenderness. Suspect UTI. Do not see indication for labs or imaging at this time. Initial urinalysis appeared contaminated, a second sample was obtained and appears consistent with UTI. Patient was given a dose of Macrobid and Pyridium here as well as dose of her home. Advised to follow up with the primary care doctor for re-evaluation. Usual and customary return precautions given prior to discharge. Medical Records Medical records reviewed: Yes I reviewed the patient's medical records. Lab Data Lab results reviewed: Yes I reviewed the patient's lab results. Labs: 07/03/20 17:30 Urine - Reflex from Ua Urine Culture - Pending Laboratory Tests Range/Units 07/03/20 07/03/20 16:50 17:30 Urine Color (Yellow) Yellow Yellow Urine Clarity (Clear) Clear Clear Urine pH (5-8) 6.0 5.5 Ur Specific Aladdin (1.005-1.025) 1.015 1.010 Urine Protein (Negative) mg/dL Negative Negative Urine Ketones (Negative) mg/dL Negative Negative Urine Blood (Negative) Negative Trace-intact H Urine Nitrite (Negative) Negative Negative Urine Bilirubin (Negative) Negative Negative Urine Urobilinogen (Up TO 0.2) EU/dL 0.2 0.2 Ur Leukocyte Esterase (Negative) Small H Trace H Urine RBC (0-2) HPF 0-2 0-2 Urine WBC (0-5) HPF 20-50 H 20-50 H Ur Epithelial Cells (Negative) HPF Many Few Urine Crystals (Negative) HPF Negative Negative Urine Bacteria (Negative) HPF Rare Rare Urine Casts (Negative) LPF Negative Negative Urine Mucus (Negative) Negative Negative Ur Culture Indicated? No/sq. contamination Yes Urine Glucose (Negative) mg/dL Negative Negative HPI General Mode of arrival: ambulatory. Date/Time Provider Initiated Documentation: 07/03/20 16:41. Limitations to Documentation: no limitations. Information obtained by: patient. HPI Narrative: Patient is a 79-year-old female with a history of hypertension, hyperlipidemia, CHF, CAD, GERD, OA, hysterectomy, rectocele repair with bladder suspension presents to the ED with a c/o urinary frequency, urgency and dysuria since yesterday morning. Pt denies fever, vomiting, or acute back pain. She states she has not been on any recent antibiotics. She denies any recent travel or known sick contacts. Related Data Home Medications Medication Instructions Recorded Confirmed Fiber Gummies 1 ea PO DAILY 08/10/14 07/03/20 acetaminophen [Mapap Extra 1,000 mg PO TID PRN PRN 08/10/14 07/03/20 Strength] cholecalciferol (vitamin D3) 2,000 unit PO DAILY 08/10/14 07/03/20 [Vitamin D3] coenzyme Q10 [CoQ-10] 100 mg PO DAILY 08/10/14 07/03/20 isosorbide mononitrate 120 mg PO DAILY 08/10/14 07/03/20 nitroglycerin 0.4 mg SUBLINGUAL DIRECTED 08/10/14 07/03/20 quinapril 20 mg PO DAILY 08/10/14 07/03/20 furosemide [Lasix] 40 mg PO DAILY tab-cap 07/30/15 07/03/20 esomeprazole magnesium [Nexium] 40 mg PO BID #0 08/28/16 07/03/20 bisacodyl 5 mg PO PRN PRN 06/25/19 07/03/20 docusate sodium [Colace] 100 mg PO BID #0 cap 06/27/19 07/03/20 aspirin 81 mg tablet,delayed 81 mg PO DAILY tab 07/10/19 07/03/20 release metoprolol tartrate 50 mg tablet 50 mg PO DAILY 07/10/19 07/03/20 atorvastatin 40 mg tablet 40 mg PO HS tab 12/05/19 07/03/20 estradiol 1 gm VG DAILY #42.5 gm 12/05/19 07/03/20 amlodipine 2.5 mg tablet 2.5 mg PO DAILY 01/27/20 07/03/20 cholecalciferol (vitamin D3) 50 50 mcg PO DAILY 01/27/20 07/03/20 mcg (2,000 unit) capsule loratadine [Claritin] 10 mg PO DAILY 07/03/20 07/03/20 nitrofurantoin monohyd/m-cryst 100 mg PO BID 4 Days #8 cap 07/03/20 [Macrobid] phenazopyridine [Pyridium] 200 mg PO TID PRN #6 tab 07/03/20 Previous Rx's Medication Instructions Recorded esomeprazole magnesium [Nexium] 40 mg PO BID #0 08/28/16 docusate sodium [Colace] 100 mg PO BID #0 cap 06/27/19 estradiol 1 gm VG DAILY #42.5 gm 12/05/19 nitrofurantoin monohyd/m-cryst 100 mg PO BID 4 Days #8 cap 07/03/20 [Macrobid] phenazopyridine [Pyridium] 200 mg PO TID PRN #6 tab 07/03/20 Allergies Allergy/AdvReac Type Severity Reaction Status Date / Time Sulfa (Sulfonamide Allergy Intermediate itching Unverified 03/31/20 14:42 Antibiotics) Latex, Natural Rubber Allergy rash and Unverified 03/31/20 14:42 itching Penicillins Allergy rash/pustul Unverified 03/31/20 14:42 e metronidazole AdvReac Intermediate shooting Unverified 03/31/20 14:42 unilateral eye pain Review of Systems All systems reviewed & are unremarkable except as noted in HPI and below Constitutional Constitutional: Reports as per HPI, Denies chills and Denies fever(s) Eyes Eyes: Denies blurry vision ENT Ears, Nose, Mouth, and Throat: Denies dizziness, Denies sore throat and Denies throat swelling Cardiovascular Cardiovascular: Denies chest pain and Denies dyspnea Respiratory Respiratory: Denies cough and Denies dyspnea Gastrointestinal Gastrointestinal: Denies abdominal pain, Denies diarrhea and Denies vomiting Genitourinary Genitourinary: Denies hematuria, Reports dysuria, Reports urinary hesitancy, Reports urinary urgency and Reports other (urinary frequency) Musculoskeletal Musculoskeletal: Denies back pain and Denies numbness Integumentary/Breasts Skin/Breast: Denies lesions and Denies rash Neurologic Neurologic: Denies dizziness, Denies localized weakness and Denies numbness Allergic/Immunologic Allergic/Immunologic: Denies throat swelling [facility] Medical History AAA (abdominal aortic aneurysm) without rupture Bradycardia following surgery Colon, diverticulosis Coronary artery disease 01/2019. exercise stress test, exercise stress CT: No ischemia or scar, left ventricular function normal. LV EF 66%. Normal wall motion wall thickening. 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 I recommend the patient restrict her p.o. intake at this time PVD (peripheral vascular disease) Rectocele Stage 3. Pt will have A&P repair after medical clearance.. Vaginal atrophy 12/05/2019. And vulvar atrophy. Rx with topical estradiol. Surgical History Angioplasty H/O heart artery stent x3 H/O rectocele repair 06/25/2019 anterior and posterior colporrhaphy. Postop course complicated by an STEMI History of colonoscopy History of tubal ligation Hx of bilateral cataract extraction ureteral stent 2005 Vaginal hysterectomy (~1988) for endometriosis. Social History Smoking/Tobacco Use Status: Former Tobacco Use Smoking risk assessment performed?: Yes Alcohol Intake: never Drug use: Never Substance use type: does not use Household members: none and other Details: Do you feel safe at home: Yes Female Reproductive History Menstrual Menopause type: surgical Exam Const General: cooperative, healthy appearing and no acute distress HENMT Head: normal to inspection Face and sinus: normal facial exam Eyes General: appearance normal, both eyes and all related structures EOM: EOM intact bilaterally Neck Neck: normal visual inspection and No submandibular swelling Lymphatic: no lymphadenopathy noted Chest Chest: normal inspection of the chest and no tenderness Resp Effort & Inspection: normal respiratory effort and able to speak in complete sentences Auscultation: clear to auscultation bilaterally Cardio Rate: regular rate Rhythm: regular rhythm GI Inspection: normal to inspection Palpation: soft, not firm, not rigid and nontender Auscultation: normal bowel sounds Back/Spine/Pelvis Back: no CVA tenderness Skin General skin exam: no rashes or lesions noted Neuro General: patient alert, patient awake and patient oriented x3 Cognition: normal cognition Speech: speech normal Motor: muscle tone normal throughout Sensory Exam: no sensory deficits noted Extrem General: normal to inspection, full ROM, capillary refill normal, no calf tenderness bilaterally and no edema Psych Appearance: grossly normal Mental Status: mental status grossly normal Speech and Movement: speech and movement normal Affect: normal affect
[2020-07-03 16:46] VITALS: BP 172/88; PULSE 73; RESP 18; TEMP 36.4; O2SAT 100
[2020-07-03 16:56] LABS: Bilirubin Negative (Negative); Blood Negative (Negative); Clarity Clear (Clear); Glucose Negative (Negative); Ketones Negative (Negative); Leukocyte Esterase Small (Negative); Nitrite Negative (Negative); Specific Gravity 1.015 (1.005-1.025); Urobilinogen 0.2 EU/dL (Up TO 0.2)
[2020-07-03 17:02] LABS: Bacteria Rare HPF (Negative); Casts Negative LPF (Negative); Crystals Negative HPF (Negative); Epithelial Cells Many HPF (Negative); Mucus Negative (Negative); WBC 20-50 HPF (0-5)
[2020-07-03 17:03] LABS: C & S Indicated? No/Sq. Contamination
[2020-07-03 17:34] LABS: Bilirubin Negative (Negative); Blood Trace-intact (Negative); Clarity Clear (Clear); Glucose Negative (Negative); Ketones Negative (Negative); Leukocyte Esterase Trace (Negative); Nitrite Negative (Negative); Urobilinogen 0.2 EU/dL (Up TO 0.2); pH 5.5 (5-8)
[2020-07-03] MEDS: MacroBID 100 MG CAP PO (17:38)
[2020-07-03] MEDS: MacroBID 100 MG CAP, 2 CAPS/BTL PO (17:38)
[2020-07-03] MEDS: Phenazopyridine 100 MG TAB PO (17:40)
[2020-07-03] MEDS: Phenazopyridine 100 MG TAB, 2 TABS/BTL PO (17:40)
[2020-07-03 17:44] LABS: RBC 0-2 HPF (0-2)
[2020-07-03 17:45] LABS: Bacteria Rare HPF (Negative); Casts Negative LPF (Negative); Crystals Negative HPF (Negative); Epithelial Cells Few HPF (Negative); Mucus Negative (Negative); RBC 0-2 HPF (0-2); WBC 20-50 HPF (0-5)
[2020-07-03 17:46] LABS: C & S Indicated? Yes
== END 2020-07-03 17:54 | disposition home or self-care (01) ==
PROVIDERS: Emergency Provider Physician Assistant; PCP Nurse Practitioner
DX: N39.0 Urinary tract infection, site not specified (principal); I10 Essential (primary) hypertension
CPT/HCPCS: 99283; 81003; 81015; 87086

== ENCOUNTER 2020-07-15 16:59 | Emergency (ER) | payer MEDICARE, SELFPAY ==
[2020-07-15] VITALS (37 sets, daily range): BP systolic 120–179; BP diastolic 44–79; PULSE 51–87; RESP 7–25; TEMP 36.3–37; O2SAT 91–100
--- NOTE | 2020-07-15 17:00 | RT.EKG_ITS ---
APPROVED REPORT Exam: Resting ECG Patient Location: E HR:63 bpm ECG Measurements Heart Rate 63 AXIS IL 181 P 60 QRSd 95 QRS -56 QT 411 T 17 QTc 421 Conclusion Sinus rhythm...normal P axis, V-rate 60- 99 Left anterior fascicular block...axis(240,-40), init forces inf Consider left ventricular hypertrophy...(R aVL+S V3) >2.20mV I have reviewed and interpreted ECG and agree with software generated interpretation.
--- NOTE | 2020-07-15 17:03 | W.ED.GENAD ---
Discharge Plan Disposition Patient Disposition: HOME Condition: Stable Discharge Details Clinical Impression: Dizziness, Chronic headache, Ocular migraine, Reactive airway disease with wheezing, Carotid artery stenosis Primary Care Provider: Tyesha Conner ED Provider: Que Reyna Home Meds and New Rx's Prescriptions: New meclizine 12.5 mg tablet 12.5 mg PO TID PRN (Reason: dizziness) Qty: 14 RF: 0 Continued estradiol [Estrace] 0.01 % (0.1 mg/gram) cream 1 gm VG DAILY Qty: 42.5 RF: 3 amlodipine 2.5 mg tablet 2.5 mg PO DAILY RF: 0 cholecalciferol (vitamin D3) [Vitamin D3] 50 mcg (2,000 unit) capsule 50 mcg PO DAILY RF: 0 aspirin 81 mg tablet,delayed release (DR/EC) 120 mg PO DAILY RF: 0 metoprolol tartrate 50 mg tablet 50 mg PO DAILY RF: 0 furosemide [Lasix] 20 MG tablet 40 mg PO DAILY RF: 0 acetaminophen [Mapap Extra Strength] 500 MG tablet 1,000 mg PO TID PRN PRNRF: 0 isosorbide mononitrate 120 MG tablet extended release 24 hr 120 mg PO DAILY RF: 0 nitroglycerin 0.4 MG tablet, sublingual 0.4 mg Sublingual DIRECTED RF: 0 quinapril 20 MG tablet 20 mg PO DAILY RF: 0 coenzyme Q10 [CoQ-10] 100 MG capsule 100 mg PO DAILY RF: 0 cholecalciferol (vitamin D3) [Vitamin D3] 2,000 UNIT capsule 2,000 unit PO DAILY RF: 0 Fiber Gummies 2.5 GM tablet,chewable 1 ea PO DAILY RF: 0 atorvastatin [Lipitor] 40 mg tablet 40 mg PO HS RF: 0 loratadine [Claritin] 10 mg Tablet 10 mg PO DAILY RF: 0 esomeprazole magnesium [Nexium] 40 MG capsule,delayed release(DR/EC) 40 mg PO BID Qty: 0 RF: 0 bisacodyl 5 mg Tablet 5 mg PO PRN PRNRF: 0 docusate sodium [Colace] 100 mg Capsule 100 mg PO BID Qty: 0 RF: 0 Discharge Instructions Instructions: Reactive Airways Disease (ED), Dizziness (ED), Ocular Migraine (ED) Additional Instructions: Take meclizine as needed directed for lightheadedness or dizziness. Your wheezing today may or may not be due to the IV contrast you received with your CAT scan today. You should inform medical staff in the future that you possibly had a reaction to IV contrast. Take the steroids until finished. Use the albuterol inhaler as needed and directed for shortness of breath or wheezing. Follow-up with vascular specialist and your computer tester within the next 1 to 2-week for further evaluation of your carotid artery stenosis. Follow-up with your primary care doctor for reevaluation of your dizziness within the next 1 to 2 weeks. Return immediately to the emergency department if you develop any worsening or new concerning symptoms. Referrals: Angel Michael MD [ CONSULTING PHYSICIAN] - Discharge Data Discharge Date/Time-TO BE ENTERED AT DEPARTURE: 07/15/20 22:08 Discharge Physician: Amanda Rae Medical Decision Making <Amanda Rae DO - Last Filed: 07/15/20 20:26> 1715 -- 79-year-old female with a history of CAD, CHF, GERD, hypertension, MO, migraine, peripheral vascular disease, coronary stents, vertigo presents for chronic right eye pain and blurry vision for the past several months and lightheadedness for the past few days. EKG on arrival notes a rate of 63, sinus with no acute ST-T wave ischemic findings. She appears comfortable and in no acute distress. Blood pressure mildly elevated. Remainder vitals within normal limits. She is afebrile. She appears nontoxic. She has no focal deficits. Differential diagnosis includes dehydration, CVA, brain mass, vertigo, electrolyte abnormality, arrhythmia. Will place an IV, bolus IV fluids, screening labs, CTA head and neck, give a dose of IV Tylenol, Decadron and meclizine and reassess. 1855 -- Labs reviewed and unremarkable. CTA head negative. CTA neck notes IMPRESSION: 1. Moderate stenosis at the origin of the left internal carotid artery estimated to be in the range of 50-69 % by NASCET criteria. 2. No evidence of 50% or greater stenosis involving the cervical segment of the right internal carotid artery by NASCET criteria. Results discussed with daughter and she questions whether this is any worse than her known carotid artery disease. Discussed that as it is not severe, do not likely see any indication for urgent intervention. She is requesting I discussed with [facility] cardiology. Images pushed to [facility]. I discussed with the transfer center whether this would require a consult with vascular surgery or patient's marketing manager Dr. Bill. 1999 --nurse requested my evaluation of patient in room as she complained of wheezing. Patient is a former smoker but denies any history of asthma or COPD. Her oxygen saturation was between 92 to 95% on room air. She has very minimal expiratory wheezing in lower lung gracia. She states she feels very slightly short of breath but denies any chest pain. Patient is questioning whether she is having a reaction to IV contrast. Review of chart notes that she has had a CAT scan with IV contrast in the past and is not known a previous reaction. She has already had a dose of IV Decadron. We will give a dose of IV Benadryl, additional IV fluids, DuoNeb and obtain a portable chest x-ray. If patient's symptoms continue to improve, will plan to send home with a few days of oral prednisone. 2009 --Case endorsed to Dr. Reyna to follow-up with [facility] cardiology and patient's response to medications for wheezing. If she continues to improve, can discharge to home with oral steroids and albuterol inhaler. Medical Records Medical records reviewed: Yes I reviewed the patient's medical records. Imaging Data Radiologic Study: Radiologist's impression: CT Angiography Head With Contrast Exam date and time: 07/15/2020 5:44 PM Age: 79 years old Clinical indication: Headache TECHNIQUE: Imaging protocol: Computed tomography angiography of the head with intravenous contrast. 3D rendering (Not supervised by radiologist): MIP and/or 3D reconstructed images were created by the technologist. Contrast material: OMNIPAQUE 350; Contrast volume: 90 ml; Contrast route: INTRAVENOUS (IV); COMPARISON: No relevant prior studies available. FINDINGS: ANTERIOR CIRCULATION: Right internal carotid artery: Unremarkable. Intracranial segment is patent with no significant stenosis. No aneurysm. Right middle cerebral artery: Unremarkable. No occlusion or significant stenosis. No aneurysm. Right anterior cerebral artery: Unremarkable. No occlusion or significant stenosis. No aneurysm. Left internal carotid artery: Unremarkable. Intracranial segment is patent with no significant stenosis. No aneurysm. Left middle cerebral artery: Unremarkable. No occlusion or significant stenosis. No aneurysm. Left anterior cerebral artery: Unremarkable. No occlusion or significant stenosis. No aneurysm. POSTERIOR CIRCULATION: Right vertebral artery: Unremarkable. No occlusion or significant stenosis. No aneurysm. Left vertebral artery: Unremarkable. No occlusion or significant stenosis. No aneurysm. Basilar artery: Unremarkable. No occlusion or significant stenosis. No aneurysm. Right posterior cerebral artery: origin for the right posterior cerebral artery is a common anatomic variation and there is no evidence of occlusion or significant stenosis. No aneurysm. Left posterior cerebral artery: Unremarkable. No occlusion or significant stenosis. No aneurysm. Brain: Cerebral atrophy and microvascular ischemic changes of moderate degree are evident and no acute intracranial hemorrhage is seen. Cerebral ventricles: No midline shift or hydrocephalus. Bones/joints: Unremarkable. No acute fracture. Soft tissues: Unremarkable. IMPRESSION: No large vessel stenosis or occlusion detected involving the major branches of the anterior or posterior intracranial circulation. CT Angiography Neck With Contrast Exam date and time: 07/15/2020 5:44 PM Age: 79 years old Clinical indication: Headache TECHNIQUE: Imaging protocol: Computed tomography angiography of the neck with intravenous contrast. 3D rendering (Not supervised by radiologist): MIP and/or 3D reconstructed images were created by the technologist. Contrast material: OMNIPAQUE 350; Contrast volume: 90 ml; Contrast route: INTRAVENOUS (IV); COMPARISON: No relevant prior studies available. FINDINGS: Right common carotid artery: No stenosis. No dissection or occlusion. Right internal carotid artery: Atherosclerotic calcification is seen at the origin of the right internal carotid artery with no evidence of 50% or greater stenosis at this location or involving the remainder of the extracranial segment. No dissection or occlusion. Right external carotid artery: No occlusion or stenosis of the origin. Right vertebral artery: No stenosis. No dissection or occlusion. Left common carotid artery: No stenosis. No dissection or occlusion. Left internal carotid artery: Coarse atherosclerotic calcification is seen at the left carotid bifurcation and involving the origin of the left internal carotid artery with focal stenosis at this level estimated to be in the range of 50-69 %. No other focal stenosis detected involving the cervical segment of the left internal carotid artery. Left external carotid artery: No occlusion or stenosis of the origin. Left vertebral artery: No stenosis. No dissection or occlusion. Bones/joints: No acute fracture. Soft tissues: Normal. No significant soft tissue swelling. IMPRESSION: 1. Moderate stenosis at the origin of the left internal carotid artery estimated to be in the range of 50-69 % by NASCET criteria. 2. No evidence of 50% or greater stenosis involving the cervical segment of the right internal carotid artery by NASCET criteria. <Que Reyna MD - Last Filed: 07/23/20 08:29> 20:00 --care signed out by Dr. Rae with plan to reassess patient after Benadryl and IV fluid. Discussed case with vascular surgery at [facility]. Awaiting callback from vascular surgery at time of signout. Imaging has been sent for review. 20:35 -- I spoke with on-call vascular surgeon at [facility], discussed ED presentation and course, he reviewed CTA and notes no acute change from prior studies on file at [facility]. He would be happy to see the patient in outpatient follow-up. Chest x-ray was reviewed and interpreted by radiology: IMPRESSION: Interval development of vascular congestion with some prominence of interlobular septal lines also seen about the periphery of the mid to lower lung zones bilaterally. Imaging findings could reflect an element of fluid overload or mild congestive failure. No focal consolidation detected. Patient has received approximately 1250 mL of crystalloid. Plan to stop IV fluid and will check BNP and troponin. 21:35 --labs reviewed and troponin normal, no significant elevation of BNP. Patient has urinated about 800 mL. Patient reassessed: Wheeze resolved and patient that she is feeling better. --Labs reviewed and nondiagnostic. Patient reassessed and continues remained stable. All results discussed with the patient. I recommended close outpatient follow-up and encouraged to return immediately for any worsening or new concerning symptoms. HPI <Amanda Rae DO - Last Filed: 07/15/20 20:26> General Mode of arrival: ambulatory. Date/Time Provider Initiated Documentation: 07/15/20 16:59. Limitations to Documentation: no limitations. Information obtained by: patient. HPI Narrative: Pt is a 79yo F with a history of coronary artery disease, coronary stents, CHF, hypertension, MO, migraines and vertigo who presents to the ED w/ a c/o lightheadedness for the past 4 days. Patient states that she feels that the lightheadedness might be worse with movement. She also states she has a history of chronic pain behind right eye, and intermittent blurry vision in her right eye for the past 3 months for which she has been seeing [facility]. Patient was seen at the urgent care for her lightheadedness symptoms earlier today and they referred her here for further evaluation. Patient states her usual migraines are pain on the top of and posterior head. She states she usually takes Tylenol as needed for her headache and meclizine as needed for her dizziness and this usually works but this did not work today. She denies any recent travel, recent known sick contacts. Related Data Home Medications Medication Instructions Recorded Confirmed Fiber Gummies 1 ea PO DAILY 08/10/14 07/15/20 acetaminophen [Mapap Extra 1,000 mg PO TID PRN PRN 08/10/14 07/03/20 Strength] cholecalciferol (vitamin D3) 2,000 unit PO DAILY 08/10/14 07/15/20 [Vitamin D3] coenzyme Q10 [CoQ-10] 100 mg PO DAILY 08/10/14 07/15/20 isosorbide mononitrate 120 mg PO DAILY 08/10/14 07/15/20 nitroglycerin 0.4 mg SUBLINGUAL DIRECTED 08/10/14 07/15/20 quinapril 20 mg PO DAILY 08/10/14 07/15/20 furosemide [Lasix] 40 mg PO DAILY tab-cap 07/30/15 07/15/20 esomeprazole magnesium [Nexium] 40 mg PO BID #0 08/28/16 07/15/20 bisacodyl 5 mg PO PRN PRN 06/25/19 07/15/20 docusate sodium [Colace] 100 mg PO BID #0 cap 06/27/19 07/15/20 aspirin 81 mg tablet,delayed 120 mg PO DAILY tab 07/10/19 07/15/20 release metoprolol tartrate 50 mg tablet 50 mg PO DAILY 07/10/19 07/15/20 atorvastatin 40 mg tablet 40 mg PO HS tab 12/05/19 07/15/20 estradiol 1 gm VG DAILY #42.5 gm 12/05/19 07/15/20 amlodipine 2.5 mg tablet 2.5 mg PO DAILY 01/27/20 07/15/20 cholecalciferol (vitamin D3) 50 50 mcg PO DAILY 01/27/20 07/15/20 mcg (2,000 unit) capsule loratadine [Claritin] 10 mg PO DAILY 07/03/20 07/15/20 meclizine 12.5 mg PO TID PRN #14 tab 07/15/20 Previous Rx's Medication Instructions Recorded esomeprazole magnesium [Nexium] 40 mg PO BID #0 08/28/16 docusate sodium [Colace] 100 mg PO BID #0 cap 06/27/19 estradiol 1 gm VG DAILY #42.5 gm 12/05/19 meclizine 12.5 mg PO TID PRN #14 tab 07/15/20 Allergies Allergy/AdvReac Type Severity Reaction Status Date / Time Sulfa (Sulfonamide Allergy Intermediate itching Unverified 07/15/20 17:38 Antibiotics) Latex, Natural Rubber Allergy rash and Unverified 07/15/20 17:38 itching Penicillins Allergy rash/pustul Unverified 07/15/20 17:38 e metronidazole AdvReac Intermediate shooting Unverified 07/15/20 17:38 unilateral eye pain General STEVE: 3 Review of Systems <Amanda Rae DO - Last Filed: 07/15/20 20:26> All systems reviewed & are unremarkable except as noted in HPI and below Constitutional Constitutional: Reports as per HPI, Denies chills, Denies fever(s) and Reports headache(s) Eyes Eyes: Denies blurry vision ENT Ears, Nose, Mouth, and Throat: Reports dizziness, Reports headache(s), Denies sore throat and Denies throat swelling Cardiovascular Cardiovascular: Denies chest pain and Denies dyspnea Respiratory Respiratory: Denies cough and Denies dyspnea Gastrointestinal Gastrointestinal: Denies abdominal pain, Denies diarrhea and Denies vomiting Genitourinary Genitourinary: Denies hematuria and Denies dysuria Musculoskeletal Musculoskeletal: Denies back pain and Denies numbness Integumentary/Breasts Skin/Breast: Denies lesions and Denies rash Neurologic Neurologic: Reports dizziness, Reports headache(s), Denies localized weakness and Denies numbness Allergic/Immunologic Allergic/Immunologic: Denies throat swelling PFSH <Amanda Rae DO - Last Filed: 07/15/20 20:26> Medical History AAA (abdominal aortic aneurysm) without rupture Bradycardia following surgery Colon, diverticulosis Coronary artery disease 01/2019. exercise stress test, exercise stress CT: No ischemia or scar, left ventricular function normal. LV EF 66%. Normal wall motion wall thickening. 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 I recommend the patient restrict her p.o. intake at this time PVD (peripheral vascular disease) Rectocele Stage 3. Pt will have A&P repair after medical clearance.. Vaginal atrophy 12/05/2019. And vulvar atrophy. Rx with topical estradiol. Surgical History Angioplasty H/O heart artery stent x3 H/O rectocele repair 06/25/2019 anterior and posterior colporrhaphy. Postop course complicated by an STEMI History of colonoscopy History of tubal ligation Hx of bilateral cataract extraction ureteral stent 2005 Vaginal hysterectomy (~1988) for endometriosis. Social History Smoking/Tobacco Use Status: Former Tobacco Use Smoking risk assessment performed?: Yes Alcohol Intake: never Drug use: Never Substance use type: does not use Household members: none and other Details: Do you feel safe at home: Yes Do you feel safe in your relationship?: Yes Female Reproductive History Menstrual Menopause type: surgical Exam <Amanda Rae DO - Last Filed: 07/15/20 20:26> Const General: cooperative, healthy appearing and no acute distress [facility] Head: normal to inspection Face and sinus: normal facial exam Eyes General: appearance normal, both eyes and all related structures Pupils: PERRL EOM: EOM intact bilaterally Neck Neck: normal visual inspection and No submandibular swelling Lymphatic: no lymphadenopathy noted Chest Chest: normal inspection of the chest and no tenderness Resp Effort & Inspection: normal respiratory effort and able to speak in complete sentences Auscultation: clear to auscultation bilaterally Cardio Rate: regular rate Rhythm: regular rhythm GI Inspection: normal to inspection Palpation: soft, not firm, not rigid and nontender Auscultation: normal bowel sounds Back/Spine/Pelvis Thoracic/Lumbar Spine: thoracic and lumbar spine normal to inspection Pelvis: no pain with anterior-posterior compression Skin General skin exam: no rashes or lesions noted Neuro General: patient alert, patient awake, patient oriented x3, moves all extremities and no focal motor deficits Cranial Nerves: CN's II-XI intact bilaterally Cognition: normal cognition Speech: speech normal Motor: muscle tone normal throughout, strength 5/5 throughout and no pronator drift Sensory Exam: no sensory deficits noted Extrem General: normal to inspection, full ROM, capillary refill normal, no calf tenderness bilaterally and no edema Psych Appearance: grossly normal Mental Status: mental status grossly normal Speech and Movement: speech and movement normal Affect: normal affect Sign Out <Amanda Rae DO - Last Filed: 07/15/20 20:26> Sign Out Data: Sign Out Comment: Follow-up with [facility] cardiology or vascular surgery regarding moderate stenosis noted on CTA neck and whether they have any recommendations for follow-up. Also follow-up on portable chest x-ray, patient's response to DuoNeb, Benadryl and additional fluids to assess if wheezing has resolved. If patient feels better and cleared for discharge, patient's daughter Latosha will be here to pick her up at 930. Was sent home with a prescription for prednisone. Daughter advised that patient may need to alert staff on future visits that she may have an allergy to IV contrast. Last updated by Amanda Rae DO at 07/15/20 20:17
--- NOTE | 2020-07-15 17:30 | DI.CT_ITS ---
EXAM: CT BRAIN NECK CTA CLINICAL HISTORY: headache, pain behind R eye. TECHNIQUE: Imaging Protocol: Axial CT angiography was performed with multi-slice acquisition and mu lti-planar and/or 3D reconstructions. CONTRAST MATERIAL: Intravenous: Omnipaque 350 Contrast volume:100 cc COMPARISON: No exams were available for comparison FINDINGS: CT Head W/O: Ventricles and Extra axial spaces: Normal in size and morphology for the patient's age. Hemorrhage: None. Cerebral parenchyma: Mild white matter changes consistent with small vessel ischemic changes. Midline shift: None. Brainstem/Cerebellum: Normal. Calvarium: Normal. Visualized Paranasal sinuses/Mastoids: Clear. Soft Tissues: Unremarkable. CTA Brain W: Internal Carotid Arteries: Petrous: Normal. Cavernous: Normal. Cerebral: Normal. Middle Cerebral Arteries: Right: No aneurysm, occlusion or significant stenosis. Left: No aneurysm, occlusion or significant stenosis. Anterior Cerebral Arteries: Right: No aneurysm, occlusion or significant stenosis. Left: No aneurysm, occlusion or significant stenosis. Posterior cerebral Arteries: Right: No aneurysm, occlusion or significant stenosis. origin, anatomic variant. Left: No aneurysm, occlusion or significant stenosis. Vertebral Arteries: Right: No aneurysm, occlusion or significant stenosis. Left: No aneurysm, occlusion or significant stenosis. Basilar Artery: No aneurysm, occlusion or significant stenosis. CTA Neck W: Common Carotid: Right: No aneurysm, occlusion or significant stenosis. Left: No aneurysm, occlusion or significant stenosis. External Carotid: Right: No aneurysm, occlusion or significant stenosis. Left: No aneurysm, occlusion or significant stenosis. Internal Carotid: Right: Calcification proximally causing less than 50% stenosis. No aneurysm, dissection or occlusion . Tortuous. Left: Calcific atherosclerotic plaque proximally causing moderate degree of stenosis, 50-69%. No ane urysm, dissection or occlusion. Tortuous. Vertebral Artery: Right: No aneurysm, occlusion or significant stenosis. Left: No aneurysm, occlusion or significant stenosis. Lung Apices: Normal. Bones: Degenerative changes cervical spine. Soft Tissues: Normal. IMPRESSION: 1. Unremarkable CTA examination of the [place]. 2. Unremarkable noncontrast CT Head. 3. Calcific atherosclerotic plaque at the proximal internal carotid arteries causing moderate degree of stenosis, 50-69% on the left and less than 50% stenosis on the right. . RADIATION DOSE DELIVERED: 1,022.15mGy.cm Total DLP DATA REPOSITORY: All CT scans at this facility are submitted to the National Radiology Data Registry (NRDR) Dose Index Registry (DIR) with the [employer] (ACR). RADIATION OPTIMIZATION: All CT scans at this facility use at least one of these dose optimization te chniques: automated exposure control; mA and/or kV adjustment per patient size (includes targeted exa ms where dose is matched to clinical indication); or iterative reconstruction.
[2020-07-15] MEDS: Normal Saline 1,000 ML 1000 ML IV ×2 (18:01→20:14)
[2020-07-15] MEDS: ACETAMINOPHEN 1,000 MG/100 ML BTL 400 MG IVPB (18:01)
[2020-07-15] MEDS: Meclizine 25 MG TAB PO (18:01)
[2020-07-15] MEDS: Dexamethasone 10 MG/ML VIAL IVP (18:01)
[2020-07-15 18:09] LABS: Abs Immature Grans 0.03 10^3/uL (0.0-0.06); Absolute Basophil Count 0.03 10^3/uL (0.0-0.2); Absolute Eosinophil Count 0.17 10^3/uL (0.0-0.7); Absolute Monocyte Count 0.59 10^3/uL (0.1-0.8); Absolute Neutrophil Count 4.55 10^3/uL (1.2-6.7); Basophils % 0.4; Eosinophils % 2.2; HCT 33.5 % (36.0-46.0); HGB 10.5 g/dL (11.2-15.7); Immature Grans % 0.4; Lymphocytes % 31.8; MCH 26.7 pg (27.0-33.0); MCHC 31.3 % (32.0-36.0); MCV 85.2 fL (80-95); MPV 9.2 fL (8.0-11.0); Monocytes % 7.5; Neutrophils % 57.7; Nucleated RBC 0 %; Platelet Count 263 10^3/uL (130-400); RBC 3.93 10^6/uL (3.93-5.22); RDW 14.3 % (11.7-14.6); RDW-SD 44.5 fL; WBC 7.87 10^3/uL (4.4-10.8)
[2020-07-15 18:16] LABS: PTT Activated 23.7 sec (21.0-27.5); Prothrombin Time 10.4 sec (9.3-11.0)
[2020-07-15 18:22] LABS: ALT 27 U/L (14-59); AST 23 U/L (15-37); Alkaline Phosphatase 88 U/L (46-116); Anion Gap 6.6 mmol/L (3-11); BUN 8 mg/dL (7-18); Bilirubin, Total 0.2 mg/dL (0.2-1.0); CO2 27.4 mmol/L (21.0-32.0); CREATININE 0.77 mg/dL (0.55-1.02); Chloride 100 mmol/L (98-107); Glucose 97 mg/dL (74-106); Magnesium 2.1 mg/dL (1.8-2.4); Potassium 4.1 mmol/L (3.5-5.1); Sodium 134 mmol/L (136-145); Total Protein 7.2 g/dL (6.4-8.2)
[2020-07-15 18:24] LABS: Troponin I < 0.05 ng/mL (<0.06)
[2020-07-15 18:47] LABS: Bilirubin Negative (Negative); Blood Negative (Negative); Clarity Clear (Clear); Glucose Negative (Negative); Ketones Negative (Negative); Leukocyte Esterase Negative (Negative); Nitrite Negative (Negative); Urobilinogen 0.2 EU/dL (Up TO 0.2)
[2020-07-15] MEDS: Omnipaque 350 MG/ML 100 ML BTL IJ (18:54)
[2020-07-15] MEDS: Normal Saline - Diluent 50 ML VIAL IV (18:55)
--- NOTE | 2020-07-15 19:10 | DI.VRAD_ITS ---
PROCEDURE INFORMATION: Exam: CT Angiography Head With Contrast Exam date and time: 07/15/2020 5:44 PM Age: 79 years old Clinical indication: Headache TECHNIQUE: Imaging protocol: Computed tomography angiography of the head with intravenous contrast. 3D rendering (Not supervised by radiologist): MIP and/or 3D reconstructed images were created by the technologist. Contrast material: OMNIPAQUE 350; Contrast volume: 90 ml; Contrast route: INTRAVENOUS (IV); COMPARISON: No relevant prior studies available. FINDINGS: ANTERIOR CIRCULATION: Right internal carotid artery: Unremarkable. Intracranial segment is patent with no significant stenosis. No aneurysm. Right middle cerebral artery: Unremarkable. No occlusion or significant stenosis. No aneurysm. Right anterior cerebral artery: Unremarkable. No occlusion or significant stenosis. No aneurysm. Left internal carotid artery: Unremarkable. Intracranial segment is patent with no significant stenosis. No aneurysm. Left middle cerebral artery: Unremarkable. No occlusion or significant stenosis. No aneurysm. Left anterior cerebral artery: Unremarkable. No occlusion or significant stenosis. No aneurysm. POSTERIOR CIRCULATION: Right vertebral artery: Unremarkable. No occlusion or significant stenosis. No aneurysm. Left vertebral artery: Unremarkable. No occlusion or significant stenosis. No aneurysm. Basilar artery: Unremarkable. No occlusion or significant stenosis. No aneurysm. Right posterior cerebral artery: origin for the right posterior cerebral artery is a common anatomic variation and there is no evidence of occlusion or significant stenosis. No aneurysm. Left posterior cerebral artery: Unremarkable. No occlusion or significant stenosis. No aneurysm. Brain: Cerebral atrophy and microvascular ischemic changes of moderate degree are evident and no acute intracranial hemorrhage is seen. Cerebral ventricles: No midline shift or hydrocephalus. Bones/joints: Unremarkable. No acute fracture. Soft tissues: Unremarkable. IMPRESSION: No large vessel stenosis or occlusion detected involving the major branches of the anterior or posterior intracranial circulation. PROCEDURE INFORMATION: Exam: CT Angiography Neck With Contrast Exam date and time: 07/15/2020 5:44 PM Age: 79 years old Clinical indication: Headache TECHNIQUE: Imaging protocol: Computed tomography angiography of the neck with intravenous contrast. 3D rendering (Not supervised by radiologist): MIP and/or 3D reconstructed images were created by the technologist. Contrast material: OMNIPAQUE 350; Contrast volume: 90 ml; Contrast route: INTRAVENOUS (IV); COMPARISON: No relevant prior studies available. FINDINGS: Right common carotid artery: No stenosis. No dissection or occlusion. Right internal carotid artery: Atherosclerotic calcification is seen at the origin of the right internal carotid artery with no evidence of 50% or greater stenosis at this location or involving the remainder of the extracranial segment. No dissection or occlusion. Right external carotid artery: No occlusion or stenosis of the origin. Right vertebral artery: No stenosis. No dissection or occlusion. Left common carotid artery: No stenosis. No dissection or occlusion. Left internal carotid artery: Coarse atherosclerotic calcification is seen at the left carotid bifurcation and involving the origin of the left internal carotid artery with focal stenosis at this level estimated to be in the range of 50-69 %. No other focal stenosis detected involving the cervical segment of the left internal carotid artery. Left external carotid artery: No occlusion or stenosis of the origin. Left vertebral artery: No stenosis. No dissection or occlusion. Bones/joints: No acute fracture. Soft tissues: Normal. No significant soft tissue swelling. IMPRESSION: 1. Moderate stenosis at the origin of the left internal carotid artery estimated to be in the range of 50-69 % by NASCET criteria. 2. No evidence of 50% or greater stenosis involving the cervical segment of the right internal carotid artery by NASCET criteria. REFERENCES: NASCET CRITERIA. The degree of internal carotid artery stenosis is based on NASCET criteria. Normal is no stenosis. Mild is less than 50% stenosis. Moderate is 50-69% stenosis. Severe is 70% to 99% stenosis. Total occlusion is no detectable patent lumen. Dictated and Authenticated by: Froilan Arredondo MD. Ordering:AAKASH Patel MD
[2020-07-15 19:39] LABS: ESR 16 mm/hr (0-30)
[2020-07-15] MEDS: diphenhydrAMINE 50 MG/ML VIAL IVP (20:15)
--- NOTE | 2020-07-15 20:15 | DI.RAD_ITS ---
EXAM: XR PORTABLE CHEST AP CLINICAL HISTORY: Wheezing, rule out acute disease TECHNIQUE: 2D digital imaging was performed. COMPARISON: CR XR CHEST 2V PA LATERAL from 09/02/2018 CR XR DEXA BONE DENSITY W/WO KARISHMA from 08/26/2019 FINDINGS: LUNGS: Suboptimal inspiration. Pulmonary vascular prominence, increased bilateral interstitial prabha ngs, consistent with pulmonary edema. No focal consolidation or effusion. HEART: Normal size for projection.Calcification at the aortic arch. Tortuous aorta. BONES: Unremarkable. IMPRESSION: Pulmonary edema. DATA REPOSITORY: RADIATION DOSE DELIVERED:
[2020-07-15] MEDS: Albuterol/Ipratropium 3 ML UPD VIAL UPD (20:27)
[2020-07-15] MEDS: Albuterol HFA 8 GM 60 PUFF INH IH (20:34)
--- NOTE | 2020-07-15 20:34 | DI.VRAD_ITS ---
PROCEDURE INFORMATION: Exam: XR Chest, 1 View Exam date and time: 07/15/2020 8:26 PM Age: 79 years old Clinical indication: Cough TECHNIQUE: Imaging protocol: XR of the chest Views: 1 view. COMPARISON: CR XR CHEST 2V PA LATERAL 09/02/2018 3:34 PM FINDINGS: Lungs: No discrete parenchymal mass or consolidation identified with interval increase in vascular congestion seen throughout both lungs and prominence of a few interlobular septal lines now seen about the periphery of the mid to lower lung zones bilaterally. Pleural space: No pneumothorax or pleural effusion is seen. Heart/Mediastinum: Heart size is normal. Bones/joints: No acute osseous lesions are detected. IMPRESSION: Interval development of vascular congestion with some prominence of interlobular septal lines also seen about the periphery of the mid to lower lung zones bilaterally. Imaging findings could reflect an element of fluid overload or mild congestive failure. No focal consolidation detected. Dictated and Authenticated by: Froilan Arredondo MD. Ordering:AAKASH Patel MD
[2020-07-15 21:11] LABS: NT-proBNP 416 pg/mL (<300)
[2020-07-15 21:16] LABS: Troponin I < 0.05 ng/mL (<0.06)
== END 2020-07-15 22:08 | disposition home or self-care (01) ==
PROVIDERS: Physician Assistant; Emergency Provider Student in an Organized Health Care Education/Training Program; PCP Nurse Practitioner
DX: G43.109 Migraine with aura, not intractable, without status migrainosus (principal); R42 Dizziness and giddiness; I65.22 Occlusion and stenosis of left carotid artery; J45.909 Unspecified asthma, uncomplicated; I10 Essential (primary) hypertension
CPT/HCPCS: 36416; 70496; 70498; 80053; 82962; 85652; 93005; 94640; 96361; 96365; 96375; 99285; 71045; 81003; 83735; 83880; 84484; 85025; 85610; 85730; 93010; J0131; J1100; J1200; J3490; J7620

== ENCOUNTER 2020-07-26 02:09 | Outpatient (CLI) | payer MEDICARE, SELFPAY ==
--- NOTE | 2020-07-26 | DI.US_ITS ---
EXAM: US CAROTID CLINICAL HISTORY: DIZZINESS,R42. TECHNIQUE: Ultrasound carotids performed using grayscale, color-flow, and spectral Doppler imaging. COMPARISON: US US ECHOCARDIOGRAM from 06/27/2019 FINDINGS: RIGHT CAROTID ARTERY: Plaque: There is plaque at the right carotid bulb. Peak systolic velocity in the proximal right inte rnal carotid artery is 145 cm/sec, corresponding moderate stenosis 50-69 percent. LEFT CAROTID ARTERY: Plaque: There is similar plaque in the left carotid bulb-most proximal left ICA. Velocity elevation: Peak systolic velocity is 138 centimeters/second in the proximal left ICA and 152 centimeters/second in the mid left ICA and 170 centimeters/second in the distal left ICA in the neck . This corresponds to moderate stenosis 50-69 percent. VERTEBRAL ARTERIES: Antegrade flow. Measurements: R Bulb: 93.8cm/s PS / 9.6cm/s ED R CCA: 86.8cm/s PS / 12.2cm/s ED R ECA: 143.8cm/s PS / 1.7cm/s ED R ICA Prox: 145.4cm/s PS /15.7cm/s ED R ICA Mid: 115.7cm/s PS / 18cm/s ED R ICA Distal: 118.9cm/s PS /19.3cm/s ED R Vert: 62.6cm/s PS / 10.5cm/s ED R SVR: 1.68 R DVR: 1.29 L Bulb: 112.1cm/s PS /15.2cm/s ED L CCA: 92cm/s PS / 14.2cm/s ED L ECA: 154.6cm/s PS /5.3cm/s ED L ICA Prox:137.8cm/s PS / 14.7cm/s ED L ICA Mid: 152.5cm/sPS / 20cm/s ED L ICA Distal: 170.4cm/s PS / 24.2cm/s ED L Vert: 41.5cm/s PS / 11.6cm/s ED L SVR: 1.85 L DVR: 1.7 IMPRESSION: There is similar appearing plaque at both carotid bulbs with elevated velocities as described above, corresponding to approximately 50-69 percent stenosis bilaterally (moderate). Appears slightly more prominent on left side. Flow in both vertebral arteries is antegrade. Criteria for Carotid Stenosis: Normal: ICA PSV <125 cm/s no plaque or intimal thickening is visible. <50% stenosis: ICA PSV <125 cm/s and plaque or intimal thickening is visible. 50-69% stenosis: ICA PSV is 125-250 cm/s and plaque is visible. >70% stenosis to near occlusion: ICA PSV >250 cm/s with visible plaque and luminal narrowing. DATA REPOSITORY:
== END 2020-07-26 02:29 ==
PROVIDERS: PCP Nurse Practitioner; Visit Provider Physician Assistant
DX: R42 Dizziness and giddiness (principal); I65.23 Occlusion and stenosis of bilateral carotid arteries
CPT/HCPCS: 93880

== ENCOUNTER 2020-08-31 09:36 | Outpatient (CLI) | payer MEDICARE, SELFPAY ==
--- NOTE | 2020-08-31 09:45 | RT.EKG_ITS ---
APPROVED REPORT Exam: Resting ECG Patient Location: O HR:51 bpm ECG Measurements Heart Rate 51 AXIS NC 171 P 39 QRSd 94 QRS -50 QT 422 T 19 QTc 389 Conclusion Sinus rhythm...normal P axis, V-rate 50- 99 Left anterior fascicular block...axis(240,-40), init forces inf Abnormal R-wave progression, late transition...QRS area<0 in V5/V6
== END 2020-08-31 09:37 | disposition home or self-care (01) ==
LOC: DI.CARD 09:59
PROVIDERS: PCP Nurse Practitioner; Referring Provider Nurse Practitioner; Visit Provider Internal Medicine Cardiovascular Disease
DX: I44.4 Left anterior fascicular block (principal); I49.3 Ventricular premature depolarization; I25.10 Atherosclerotic heart disease of native coronary artery without angina pectoris
CPT/HCPCS: 93010

== ENCOUNTER → 2020-08-31 09:36 | Outpatient (BNVA) | payer MEDICARE, SELFPAY | PROVIDERS: PCP Nurse Practitioner; Referring Provider Nurse Practitioner; Visit Provider Internal Medicine Cardiovascular Disease | DX: I49.3 Ventricular premature depolarization (principal); I10 Essential (primary) hypertension; I73.9 Peripheral vascular disease, unspecified; I25.10 Atherosclerotic heart disease of native coronary artery without angina pectoris | CPT/HCPCS: 99204; 99215 ==

== ENCOUNTER 2020-09-27 20:06 | Outpatient (REF) | payer MEDICARE, SELFPAY ==
[2020-09-27 15:38] LABS: Hemoglobin A1C 5.9 % (<5.7)
[2020-09-27 15:51] LABS: Iron 30 ug/dL (50-170); Total Iron Binding Capacity 409 ug/dL (250-450); Transferrin Sat 7 % (15-50)
[2020-09-27 16:17] LABS: Vitamin B12 272 pg/mL (193-986)
== END 2020-09-27 20:07 | disposition home or self-care (01) ==
LOC: NCHCN 20:06
PROVIDERS: PCP Nurse Practitioner; Visit Provider Family Medicine
DX: D64.9 Anemia, unspecified (principal); R73.03 Prediabetes
CPT/HCPCS: 82607; 83036; 83540; 83550

== ENCOUNTER 2020-11-26 11:53 | Emergency (ER) | payer MEDICARE, SELFPAY ==
[2020-11-26 11:58] VITALS: BP 154/59; PULSE 64; RESP 20; TEMP 36.4; O2SAT 97
--- NOTE | 2020-11-26 12:08 | W.ED.GENAD ---
Discharge Plan Disposition Patient Disposition: HOME Condition: Stable Discharge Details Clinical Impression: Acute UTI Primary Care Provider: Tyesha Conner ED Provider: Isaiah Jason Home Meds and New Rx's Prescriptions: New nitrofurantoin monohyd/m-cryst [Macrobid] 100 mg capsule 100 mg PO Q12H 5 Days Qty: 10 RF: 0 phenazopyridine [Pyridium] 100 mg tablet 100 mg PO TID PRNQty: 6 RF: 0 Continued estradiol [Estrace] 0.01 % (0.1 mg/gram) cream 1 gm VG DAILY Qty: 42.5 RF: 3 cholecalciferol (vitamin D3) [Vitamin D3] 50 mcg (2,000 unit) capsule 50 mcg PO DAILY RF: 0 amlodipine 2.5 mg tablet 2.5 mg PO DAILY Qty: 90 RF: 3 aspirin 81 mg tablet,delayed release (DR/EC) 162 mg PO DAILY RF: 0 metoprolol tartrate 50 mg tablet 50 mg PO DAILY RF: 0 furosemide [Lasix] 20 MG tablet 20 mg PO DAILY RF: 0 acetaminophen [Mapap Extra Strength] 500 MG tablet 1,000 mg PO TID PRN PRNRF: 0 isosorbide mononitrate 120 MG tablet extended release 24 hr 120 mg PO DAILY RF: 0 nitroglycerin 0.4 MG tablet, sublingual 0.4 mg Sublingual DIRECTED RF: 0 quinapril 20 MG tablet 20 mg PO BID RF: 0 coenzyme Q10 [CoQ-10] 100 MG capsule 100 mg PO DAILY RF: 0 cholecalciferol (vitamin D3) [Vitamin D3] 2,000 UNIT capsule 2,000 unit PO DAILY RF: 0 Fiber Gummies 2.5 GM tablet,chewable 1 ea PO DAILY RF: 0 atorvastatin [Lipitor] 40 mg tablet 40 mg PO HS RF: 0 loratadine [Claritin] 10 mg Tablet 10 mg PO DAILY RF: 0 meclizine 12.5 mg tablet 12.5 mg PO TID PRN (Reason: dizziness) Qty: 14 RF: 0 esomeprazole magnesium [Nexium] 40 MG capsule,delayed release(DR/EC) 40 mg PO BID Qty: 0 RF: 0 bisacodyl 5 mg Tablet 5 mg PO PRN PRNRF: 0 vitamin E 400 unit Capsule 400 unit PO DAILY RF: 0 docusate sodium [Colace] 100 mg capsule 100 mg PO BID PRNRF: 0 Discharge Instructions Instructions: Urinary Tract Infection in Women (ED) Additional Instructions: your urine test showed you likely have a urinary tract infection if not improving by Sunday see your primary care provider if you feel more ill, have severe back pain or fevers return to the emergency department Medical Decision Making 80 yo female who states she feels like she has a uti. She states she has urinary frequency and burning when she urinates and feels similar to prior uti she has had. No fevers, abdomen pain or back pain. Appears well systemically so doubt pyelo or sepsis. Will obtain ua to further evaluate UA consistent with uti, remains stable, will start macrobid and advised if not improving by Sunday to see pcp, return precautions given Differential Diagnosis Differential Diagnosis: cystitis, urinary tract infection Lab Data Lab results reviewed: Yes I reviewed the patient's lab results. HPI General Mode of arrival: ambulatory. Date/Time Provider Initiated Documentation: 11/26/20 11:56. Limitations to Documentation: no limitations. Information obtained by: patient. History of Present Illness 80 year old F presents to the emergency department with the chief complaint of burning with urination, described as moderate, Patient started experiencing this day(s) (1) and it has been constant. No relieving factors improve symptom(s), No exacerbating factors reported . Patient did receive the following treatments prior to arrival, none Related Data Home Medications Medication Instructions Recorded Confirmed Fiber Gummies 1 ea PO DAILY 08/10/14 11/26/20 acetaminophen [Mapap Extra 1,000 mg PO TID PRN PRN 08/10/14 11/26/20 Strength] cholecalciferol (vitamin D3) 2,000 unit PO DAILY 08/10/14 11/26/20 [Vitamin D3] coenzyme Q10 [CoQ-10] 100 mg PO DAILY 08/10/14 11/26/20 isosorbide mononitrate 120 mg PO DAILY 08/10/14 11/26/20 nitroglycerin 0.4 mg SUBLINGUAL DIRECTED 08/10/14 11/26/20 quinapril 20 mg PO BID 08/10/14 11/26/20 furosemide [Lasix] 20 mg PO DAILY tab-cap 07/30/15 11/26/20 esomeprazole magnesium [Nexium] 40 mg PO BID #0 08/28/16 11/26/20 bisacodyl 5 mg PO PRN PRN 06/25/19 07/15/20 aspirin 81 mg tablet,delayed 162 mg PO DAILY tab 07/10/19 11/26/20 release metoprolol tartrate 50 mg tablet 50 mg PO DAILY 07/10/19 11/26/20 atorvastatin 40 mg tablet 40 mg PO HS tab 12/05/19 11/26/20 estradiol 1 gm VG DAILY #42.5 gm 12/05/19 11/26/20 cholecalciferol (vitamin D3) 50 50 mcg PO DAILY 01/27/20 07/15/20 mcg (2,000 unit) capsule loratadine [Claritin] 10 mg PO DAILY 07/03/20 11/26/20 meclizine 12.5 mg PO TID PRN #14 tab 07/15/20 11/26/20 amlodipine 2.5 mg tablet 2.5 mg PO DAILY #90 tab 08/31/20 11/26/20 docusate sodium [Colace] 100 mg PO BID PRN 11/26/20 11/26/20 nitrofurantoin monohyd/m-cryst 100 mg PO Q12H 5 Days #10 cap 11/26/20 [Macrobid] phenazopyridine [Pyridium] 100 mg PO TID PRN #6 tab 11/26/20 vitamin E 400 unit PO DAILY 11/26/20 11/26/20 Previous Rx's Medication Instructions Recorded esomeprazole magnesium [Nexium] 40 mg PO BID #0 08/28/16 estradiol 1 gm VG DAILY #42.5 gm 12/05/19 meclizine 12.5 mg PO TID PRN #14 tab 07/15/20 amlodipine 2.5 mg tablet 2.5 mg PO DAILY #90 tab 08/31/20 nitrofurantoin monohyd/m-cryst 100 mg PO Q12H 5 Days #10 cap 11/26/20 [Macrobid] phenazopyridine [Pyridium] 100 mg PO TID PRN #6 tab 11/26/20 Allergies Allergy/AdvReac Type Severity Reaction Status Date / Time Iodinated Contrast Media Allergy Severe critical Unverified 11/26/20 12:23 Sulfa (Sulfonamide Allergy Intermediate itching Verified 11/26/20 12:13 Antibiotics) Latex, Natural Rubber Allergy rash and Verified 11/26/20 12:13 itching Penicillins Allergy rash/pustul Verified 11/26/20 12:13 e metronidazole AdvReac Intermediate shooting Verified 11/26/20 12:13 unilateral eye pain General Stated Complaint: Urinary STEVE: 3 Review of Systems All systems reviewed & are unremarkable except as noted in HPI and below Constitutional Constitutional: Denies chills, Denies fever(s) and Denies weakness Cardiovascular Cardiovascular: Denies chest pain and Denies dyspnea Respiratory Respiratory: Denies cough and Denies dyspnea Gastrointestinal Gastrointestinal: Denies abdominal pain, Denies nausea and Denies vomiting Neurologic Neurologic: Denies weakness Psychiatric Psychiatric: Denies depression [facility] Medical History AAA (abdominal aortic aneurysm) without rupture Bradycardia following surgery Colon, diverticulosis Coronary artery disease 01/2019. exercise stress test, exercise stress CT: No ischemia or scar, left ventricular function normal. LV EF 66%. Normal wall motion wall thickening. 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 I recommend the patient restrict her p.o. intake at this time PVD (peripheral vascular disease) Rectocele Stage 3. Pt will have A&P repair after medical clearance.. Vaginal atrophy 12/05/2019. And vulvar atrophy. Rx with topical estradiol. Surgical History Angioplasty H/O heart artery stent x3 H/O rectocele repair 06/25/2019 anterior and posterior colporrhaphy. Postop course complicated by an STEMI History of colonoscopy History of tubal ligation Hx of bilateral cataract extraction ureteral stent 2004 Vaginal hysterectomy (~1988) for endometriosis. Social History Smoking/Tobacco Use Status: Former Tobacco Use Smoking risk assessment performed?: Yes Alcohol Intake: never Drug use: Never Substance use type: does not use Household members: none and other Details: Do you feel safe at home: Yes Do you feel safe in your relationship?: Yes Female Reproductive History Menstrual Menopause type: surgical Exam Const General: no acute distress Orientation: alert HENMT Head: normal to inspection Ears: external ears normal General nose exam: external nose normal Mouth: moist mucous membranes Eyes General: appearance normal, both eyes and all related structures Neck Neck: normal visual inspection Resp Effort & Inspection: normal respiratory effort and able to speak in complete sentences Cardio Rate: regular rate Back/Spine/Pelvis Back: no CVA tenderness Skin General skin exam: no rashes or lesions noted Neuro General: patient alert and patient oriented x3 Extrem General: normal to inspection Psych Mental Status: mental status grossly normal Course Vital Signs Vital signs: Vital Signs Temperature 36.4 C L 11/26/20 11:58 Pulse 64 11/26/20 11:58 Respiratory Rate 20 11/26/20 11:58 Blood Pressure 154/59 H 11/26/20 11:58 Pulse Oximetry 97 11/26/20 11:58 Temperature 36.4 C L 11/26/20 11:58 Temperature Source Skin 11/26/20 11:58 Pulse 64 11/26/20 11:58 Respiratory Rate 20 11/26/20 11:58 Blood Pressure 154/59 H 11/26/20 11:58 Blood Pressure Position Sitting 11/26/20 11:58 Pulse Oximetry 97 11/26/20 11:58 Oxygen Delivery Method Room Air 11/26/20 11:58 Oxygen Flow Rate 0 11/26/20 11:58 Pain Level 9 11/26/20 11:58 Comment chronic back pain - nothing new with urinary sx 11/26/20 11:58 Lab/Test Results Lab/Test Results: 11/26/20 12:03 Urine - Clean Catch Urine Culture - Pending
[2020-11-26 12:18] LABS: Bilirubin Negative (Negative); Blood Large (Negative); Clarity Sl Cloudy (Clear); Glucose Negative (Negative); Ketones Negative (Negative); Leukocyte Esterase Small (Negative); Nitrite Negative (Negative); Specific Gravity >= 1.030 (1.005-1.025); Urobilinogen 0.2 EU/dL (Up TO 0.2)
--- NOTE | 2020-11-26 12:24 | NUR.NOTE ---
pt had d/c summary from pcp to verify meds and allergies Nursing Note:
[2020-11-26 12:27] LABS: Bacteria Few HPF (Negative); Casts Negative LPF (Negative); Crystals Negative HPF (Negative); Epithelial Cells Many HPF (Negative); Mucus Trace (Negative); RBC >50 HPF (0-2)
[2020-11-26 12:28] LABS: C & S Indicated? C&S Done As Ordered
== END 2020-11-26 13:01 | disposition home or self-care (01) ==
PROVIDERS: Emergency Provider Emergency Medicine; PCP Nurse Practitioner
DX: N39.0 Urinary tract infection, site not specified (principal); B96.20 Unspecified Escherichia coli [E. coli] as the cause of diseases classified elsewhere
CPT/HCPCS: 87077; 99283; 81003; 81015; 87086; 87186

== ENCOUNTER 2021-02-03 13:22 | Outpatient (REF) | payer MEDICARE, SELFPAY ==
[2021-02-03 19:24] LABS: HCT 35.8 % (36.0-46.0); HGB 11.2 g/dL (11.2-15.7); MCH 26.7 pg (27.0-33.0); MCHC 31.3 % (32.0-36.0); MCV 85.4 fL (80-95); MPV 10.2 fL (8.0-11.0); Platelet Count 293 10^3/uL (130-400); RBC 4.19 10^6/uL (3.93-5.22); RDW 14.6 % (11.7-14.6); RDW-SD 45.1 fL
[2021-02-03 19:38] LABS: Hemoglobin A1C 5.8 % (<5.7)
[2021-02-04 17:55] LABS: Iron 39 ug/dL (50-170); Total Iron Binding Capacity 395 ug/dL (250-450); Transferrin Sat 10 % (15-50)
[2021-02-04 21:13] LABS: Folate 8.6 ng/mL (8.6-20.0)
== END 2021-02-03 13:23 | disposition home or self-care (01) ==
LOC: NCHCN 13:22
PROVIDERS: PCP Nurse Practitioner; Visit Provider Nurse Practitioner
DX: D64.9 Anemia, unspecified (principal); R73.03 Prediabetes
CPT/HCPCS: 85027; 82746; 83036; 83540; 83550

== ENCOUNTER → 2021-02-28 11:19 | Outpatient (BNVA) | payer MEDICARE, SELFPAY | PROVIDERS: PCP Nurse Practitioner; Referring Provider Nurse Practitioner; Visit Provider Internal Medicine Cardiovascular Disease | DX: I21.4 Non-ST elevation (NSTEMI) myocardial infarction (principal); I10 Essential (primary) hypertension; E78.5 Hyperlipidemia, unspecified; I34.0 Nonrheumatic mitral (valve) insufficiency | CPT/HCPCS: 99214; 99213 ==

== ENCOUNTER 2021-04-29 16:25 | Outpatient (REF) | payer MEDICARE, SELFPAY | END 2021-04-29 16:26 | disposition home or self-care (01) | LOC: NCHCN 16:25 | PROVIDERS: PCP Nurse Practitioner; Visit Provider Physician Assistant | DX: N39.0 Urinary tract infection, site not specified (principal) | CPT/HCPCS: 87086 ==

== ENCOUNTER 2021-06-07 19:31 | Outpatient (REF) | payer MEDICARE, SELFPAY ==
[2021-06-07 20:29] LABS: Abs Immature Grans 0.02 10^3/uL (0.0-0.06); Absolute Basophil Count 0.04 10^3/uL (0.0-0.2); Absolute Eosinophil Count 0.14 10^3/uL (0.0-0.7); Absolute Lymphocyte Count 1.98 10^3/uL (1.2-3.4); Absolute Monocyte Count 0.58 10^3/uL (0.1-0.8); Absolute Neutrophil Count 4.04 10^3/uL (1.2-6.7); Basophils % 0.6; Eosinophils % 2.1; HCT 41.5 % (36.0-46.0); HGB 13.4 g/dL (11.2-15.7); Immature Grans % 0.3; Lymphocytes % 29.1; MCH 29.9 pg (27.0-33.0); MCHC 32.3 % (32.0-36.0); MCV 92.6 fL (80-95); MPV 10.2 fL (8.0-11.0); Monocytes % 8.5; Neutrophils % 59.4; Nucleated RBC 0 %; Platelet Count 288 10^3/uL (130-400); RBC 4.48 10^6/uL (3.93-5.22); RDW 13.5 % (11.7-14.6); RDW-SD 45.6 fL
[2021-06-07 20:53] LABS: Iron 85 ug/dL (50-170); Total Iron Binding Capacity 310 ug/dL (250-450); Transferrin Sat 27 % (15-50)
[2021-06-07 21:13] LABS: ALT 26 U/L (14-59); AST 19 U/L (15-37); Albumin 4.5 g/dL (3.4-5.0); Alkaline Phosphatase 99 U/L (46-116); Anion Gap 9.5 mmol/L (3-11); BUN 12 mg/dL (7-18); Bilirubin, Total 0.3 mg/dL (0.2-1.0); CO2 28.5 mmol/L (21.0-32.0); CREATININE 0.8 mg/dL (0.55-1.02); Calcium 10.8 mg/dL (8.5-10.1); Calculated LDL 82 mg/dL (<100); Chloride 104 mmol/L (98-107); Cholesterol 151 mg/dL (<200); Ferritin 77 ng/mL (8-252); Folate 9.5 ng/mL (8.6-20.0); Glucose 103 mg/dL (74-106); HDL Cholesterol 44 mg/dL (40-60); Potassium 4.3 mmol/L (3.5-5.1); Sodium 142 mmol/L (136-145); Total Protein 7.3 g/dL (6.4-8.2); Triglyceride 128 mg/dL (<150); Vitamin B12 1100 pg/mL (193-986)
== END 2021-06-07 19:32 | disposition home or self-care (01) ==
LOC: LBN 19:31
PROVIDERS: PCP Nurse Practitioner; Visit Provider Nurse Practitioner
DX: I10 Essential (primary) hypertension (principal); E78.5 Hyperlipidemia, unspecified; R73.03 Prediabetes; D64.9 Anemia, unspecified
CPT/HCPCS: 80053; 80061; 82607; 82728; 82746; 83540; 83550; 85025

== ENCOUNTER 2021-06-20 01:07 | Outpatient (CLI) | payer MEDICARE, SELFPAY ==
--- NOTE | 2021-06-20 | DI.MRI_ITS ---
Exam(s) MR BRAIN WO EXAM: MR BRAIN WO CLINICAL HISTORY: MEMORY LOSS, R41.3,MIGRAINE HEADACHES, G43.909 TECHNIQUE: Multiplanar multisequence MRI of the brain was performed. COMPARISON: CT CT BRAIN NECK CTA from 07/15/[address] BRAIN NECK CTA from 07/15/2020 FINDINGS: CEREBRAL PARENCHYMA: There is no evidence of intracranial hemorrhage, mass effect, or shift of midline structures. There are no extra-axial fluid collections. Ventricles are not enlarged or shifted. There is no significant focal signal abnormality in the cerebellar hemispheres. Some multifocal sign al abnormalities noted in the josselyn, consistent with chronic small vessel disease. Also in the Jenise a nd supraventricular white matter consistent with chronic small vessel disease. No evidence of hemorr gigi at these levels nor prominent surrounding edema and there is no abnormal signal on diffusion ericka ging. There is no abnormal signal abnormality in the periventricular white matter. There is no significant focal signal abnormality evident on diffusion imaging to suggest acute ischem ic event. PITUITARY GLAND: No mass nor parasellar abnormality. No obvious abnormality in the cavernous sinuses. FLOW VOIDS: The expected flow void are noted. No evidence of obvious aneurysm nor obvious vascular ma lformation. PARANASAL SINUSES: The visualized paranasal sinuses appear unremarkable. No obvious finding ORBITS: No obvious findings. IMPRESSION: There is abundant bilateral periventricular and supraventricular white matter signal abnormality cons istent with chronic small vessel disease. Similar findings are seen in the josselyn. No evidence of res tricted diffusion at these levels to suggest acute ischemic events. Is DATA REPOSITORY:
== END 2021-06-20 01:27 ==
PROVIDERS: PCP Nurse Practitioner; Visit Provider Nurse Practitioner
DX: G43.909 Migraine, unspecified, not intractable, without status migrainosus (principal); R41.3 Other amnesia; R90.82 White matter disease, unspecified
CPT/HCPCS: 70551

== ENCOUNTER → 2021-08-23 10:38 | Outpatient (BNVA) | payer MEDICARE, SELFPAY | PROVIDERS: PCP Nurse Practitioner; Referring Provider Nurse Practitioner; Visit Provider Nurse Practitioner Adult Health | DX: R41.89 Other symptoms and signs involving cognitive functions and awareness (principal); D64.9 Anemia, unspecified; I10 Essential (primary) hypertension | CPT/HCPCS: 99204; 99215 ==

== ENCOUNTER 2021-09-05 01:46 | Outpatient (CLI) | payer MEDICARE, SELFPAY ==
[2021-09-05 13:56] LABS: TSH 0.63 uIU/mL (0.36-3.74)
== END 2021-09-05 01:47 | disposition home or self-care (01) ==
LOC: LBO 01:46
PROVIDERS: PCP Nurse Practitioner; Visit Provider Nurse Practitioner Adult Health
DX: R41.89 Other symptoms and signs involving cognitive functions and awareness (principal); E21.3 Hyperparathyroidism, unspecified; I10 Essential (primary) hypertension
CPT/HCPCS: 36415; 84443

== ENCOUNTER → 2021-09-26 12:31 | Outpatient (BNVA) | payer MEDICARE, SELFPAY | PROVIDERS: PCP Nurse Practitioner; Referring Provider Nurse Practitioner; Visit Provider Nurse Practitioner Adult Health | DX: G30.9 Alzheimer's disease, unspecified (principal); F02.80 Dementia in other diseases classified elsewhere, unspecified severity, without behavioral disturbance, psychotic disturbance, mood disturbance, and anxiety | CPT/HCPCS: 99213 ==

== ENCOUNTER 2021-11-21 18:55 | Outpatient (REF) | payer MEDICARE, SELFPAY | END 2021-11-21 18:56 | disposition home or self-care (01) | LOC: LBN 18:55 | PROVIDERS: PCP Nurse Practitioner; Visit Provider Obstetrics & Gynecology Gynecology | DX: R33.8 Other retention of urine (principal) | CPT/HCPCS: 87086 ==

== ENCOUNTER 2021-12-15 14:16 | Outpatient (REF) | payer MEDICARE, SELFPAY ==
[2021-12-15 20:51] LABS: Bilirubin Negative (Negative); Blood Negative (Negative); Clarity Clear (Clear); Glucose Negative (Negative); Ketones Negative (Negative); Leukocyte Esterase Negative (Negative); Nitrite Negative (Negative); Specific Gravity >= 1.030 (1.005-1.025); Urobilinogen 0.2 EU/dL (Up TO 0.2)
[2021-12-17 10:31] LABS: COVID-19 RT-PCR UVMMC Result Negative (Negative)
== END 2021-12-15 14:17 | disposition home or self-care (01) ==
LOC: LBN 14:16
PROVIDERS: PCP Nurse Practitioner; Visit Provider Physician Assistant
DX: R39.89 Other symptoms and signs involving the genitourinary system (principal); Z20.822 Contact with and (suspected) exposure to COVID-19
CPT/HCPCS: U0003; U0005; 81003

== ENCOUNTER → 2021-12-16 00:54 | Outpatient (CLI) | payer MEDICARE, SELFPAY ==
--- NOTE | 2021-12-16 08:15 | DI.RAD_ITS ---
Exam(s) XR CHEST 2V PA LATERAL EXAM: XR CHEST 2V PA LATERAL CLINICAL HISTORY: cough, fatigue, R05.9 TECHNIQUE: 2D digital imaging was performed. COMPARISON: CR XR CHEST 2V PA LATERAL from 09/02/2018 CR,XR XR PORTABLE CHEST AP from 07/15/2020 FINDINGS: MEDIASTINUM: Normal. HEART: Normal size. Coronary artery stent.. Aorta tortuous and calcified. PULMONARY VASCULATURE: Normal. LUNGS: Clear. PLEURAL SPACE: No pleural effusion or pneumothorax. BONE: Degenerative changes in the thoracic spine, unremarkable for age. IMPRESSION: No acute abnormality. DATA REPOSITORY: RADIATION DOSE DELIVERED:
== END ==
PROVIDERS: PCP Nurse Practitioner; Visit Provider Physician Assistant
DX: R05.8 Other specified cough (principal); R53.83 Other fatigue
CPT/HCPCS: 71046

== ENCOUNTER 2021-12-28 09:03 | Outpatient (REF) | payer MEDICARE, SELFPAY ==
[2021-12-28 14:52] LABS: Abs Immature Grans 0.11 10^3/uL (0.0-0.06); Absolute Basophil Count 0.07 10^3/uL (0.0-0.2); Absolute Lymphocyte Count 2.26 10^3/uL (1.2-3.4); Absolute Neutrophil Count 5.34 10^3/uL (1.2-6.7); Basophils % 0.8; Eosinophils % 2.3; HCT 42.2 % (36.0-46.0); HGB 13.3 g/dL (11.2-15.7); Immature Grans % 1.3; MCHC 31.5 % (32.0-36.0); MCV 95 fL (80-95); MPV 9.1 fL (8.0-11.0); Monocytes % 8.1; Neutrophils % 61.5; Platelet Count 351 10^3/uL (130-400); RBC 4.43 10^6/uL (3.93-5.22); RDW-SD 45.5 fL; WBC 8.68 10^3/uL (4.4-10.8)
[2021-12-28 15:05] LABS: Iron 82 ug/dL (50-170)
[2021-12-28 15:30] LABS: ALT 6 U/L (14-59); AST 15 U/L (15-37); Albumin 4.2 g/dL (3.4-5.0); Alkaline Phosphatase 107 U/L (46-116); Anion Gap 10.5 mmol/L (3-11); BUN 13 mg/dL (7-18); Bilirubin, Total 0.4 mg/dL (0.2-1.0); CO2 28.5 mmol/L (21.0-32.0); CREATININE 0.8 mg/dL (0.55-1.02); Calcium 10.7 mg/dL (8.5-10.1); Chloride 102 mmol/L (98-107); Glucose 106 mg/dL (74-106); Sodium 141 mmol/L (136-145); TSH 0.68 uIU/mL (0.36-3.74); Total Protein 7.4 g/dL (6.4-8.2); Vitamin B12 830 pg/mL (193-986)
[2021-12-29 05:36] LABS: Vitamin D 25 Total 31.4 ng/mL (30-100)
[2021-12-29 08:41] LABS: Parathyroid Hormone,Intact 77 pg/mL (19-88)
== END 2021-12-28 09:04 | disposition home or self-care (01) ==
LOC: NCHCN 09:03
PROVIDERS: PCP Nurse Practitioner; Visit Provider Nurse Practitioner Family
DX: E21.3 Hyperparathyroidism, unspecified (principal); G30.9 Alzheimer's disease, unspecified; I10 Essential (primary) hypertension; R73.03 Prediabetes
CPT/HCPCS: 80053; 82306; 82607; 83540; 83970; 84443; 85025

== ENCOUNTER 2022-02-27 18:40 | Outpatient (REF) | payer MEDICARE, SELFPAY | END 2022-02-27 18:41 | disposition home or self-care (01) | LOC: LBN 18:40 | PROVIDERS: PCP Nurse Practitioner; Visit Provider Obstetrics & Gynecology | DX: R30.0 Dysuria (principal) | CPT/HCPCS: 87086 ==

== ENCOUNTER → 2022-04-10 14:51 | Outpatient (BNVA) | payer MEDICARE, SELFPAY | PROVIDERS: PCP Nurse Practitioner Family; Referring Provider Nurse Practitioner Family; Visit Provider Nurse Practitioner Adult Health | DX: G30.9 Alzheimer's disease, unspecified (principal); F02.80 Dementia in other diseases classified elsewhere, unspecified severity, without behavioral disturbance, psychotic disturbance, mood disturbance, and anxiety | CPT/HCPCS: 99213; 99214 ==

== ENCOUNTER 2022-09-05 18:21 | Outpatient (REF) | payer MEDICARE, SELFPAY ==
[2022-09-05 19:03] LABS: Abs Immature Grans 0.02 10^3/uL (0.0-0.06); Absolute Basophil Count 0.05 10^3/uL (0.0-0.2); Absolute Eosinophil Count 0.13 10^3/uL (0.0-0.7); Absolute Lymphocyte Count 2.37 10^3/uL (1.2-3.4); Absolute Monocyte Count 0.62 10^3/uL (0.1-0.8); Absolute Neutrophil Count 5.16 10^3/uL (1.2-6.7); Basophils % 0.6; Eosinophils % 1.6; HGB 13.2 g/dL (11.2-15.7); Immature Grans % 0.2; Lymphocytes % 28.4; MCH 30.5 pg (27.0-33.0); MCHC 32.2 % (32.0-36.0); MCV 95 fL (80-95); MPV 9.8 fL (8.0-11.0); Monocytes % 7.4; Neutrophils % 61.8; Platelet Count 284 10^3/uL (130-400); RBC 4.33 10^6/uL (3.93-5.22); RDW 13.5 % (11.7-14.6); RDW-SD 47.2 fL; WBC 8.35 10^3/uL (4.4-10.8)
[2022-09-05 19:24] LABS: ALT 17 U/L (14-59); AST 16 U/L (15-37); Albumin 4.5 g/dL (3.4-5.0); Alkaline Phosphatase 104 U/L (46-116); Anion Gap 5.3 mmol/L (3-11); BUN 23 mg/dL (7-18); Bilirubin, Total 0.3 mg/dL (0.2-1.0); CO2 32.7 mmol/L (21.0-32.0); CREATININE 0.6 mg/dL (0.55-1.02); Calculated LDL 76 mg/dL (<100); Chloride 107 mmol/L (98-107); Cholesterol 160 mg/dL (<200); Estimated GFR 90.68 (mL/min/1.73m2); Glucose 104 mg/dL (74-106); HDL Cholesterol 54 mg/dL (40-60); Potassium 3.6 mmol/L (3.5-5.1); Sodium 145 mmol/L (136-145); Total Protein 7.4 g/dL (6.4-8.2); Triglyceride 151 mg/dL (<150)
[2022-09-05 19:28] LABS: Hemoglobin A1C 5.4 % (<5.7)
== END 2022-09-05 18:22 | disposition home or self-care (01) ==
LOC: NCHCN ADD 18:21
PROVIDERS: PCP Nurse Practitioner Family; Visit Provider Nurse Practitioner Family
DX: I10 Essential (primary) hypertension (principal); R73.03 Prediabetes; E78.5 Hyperlipidemia, unspecified; K58.9 Irritable bowel syndrome, unspecified; K59.00 Constipation, unspecified; G30.9 Alzheimer's disease, unspecified
CPT/HCPCS: 80053; 80061; 83036; 85025

== ENCOUNTER → 2022-10-09 12:49 | Outpatient (BNVA) | payer MEDICARE, SELFPAY | PROVIDERS: PCP Nurse Practitioner Family; Visit Provider Nurse Practitioner Adult Health | DX: G30.9 Alzheimer's disease, unspecified (principal); F02.80 Dementia in other diseases classified elsewhere, unspecified severity, without behavioral disturbance, psychotic disturbance, mood disturbance, and anxiety | CPT/HCPCS: 99213 ==

== ENCOUNTER 2023-01-01 12:50 | Outpatient (CLI) | payer MEDICARE, SELFPAY ==
--- NOTE | 2023-01-01 12:45 | RT.EKG_ITS ---
APPROVED REPORT Exam: Resting ECG Reason for Exam: cardiac evaluation Patient Location: O HR:56 bpm ECG Measurements Heart Rate 56 AXIS AL 165 P 51 QRSd 100 QRS -65 QT 407 T 18 QTc 393 Conclusion Sinus rhythm...normal P axis, V-rate 50- 99 Left anterior fascicular block...axis(240,-40), init forces inf Late transition
== END 2023-01-01 12:51 | disposition home or self-care (01) ==
LOC: DI.CARD 12:51
PROVIDERS: PCP Nurse Practitioner Family; Visit Provider Internal Medicine Cardiovascular Disease
DX: I21.4 Non-ST elevation (NSTEMI) myocardial infarction (principal); Z13.6 Encounter for screening for cardiovascular disorders
CPT/HCPCS: 93010

== ENCOUNTER → 2023-01-01 13:48 | Outpatient (BNVA) | payer MEDICARE, SELFPAY | PROVIDERS: PCP Nurse Practitioner Family; Referring Provider Nurse Practitioner Family; Visit Provider Internal Medicine Cardiovascular Disease | DX: I25.10 Atherosclerotic heart disease of native coronary artery without angina pectoris (principal); I65.23 Occlusion and stenosis of bilateral carotid arteries; I10 Essential (primary) hypertension | CPT/HCPCS: 93005; 99214 ==

== ENCOUNTER 2023-01-24 01:44 | Outpatient (CLI) | payer MEDICARE, SELFPAY ==
--- NOTE | 2023-01-24 07:30 | DI.US_ITS ---
Exam(s) US CAROTID EXAM: US CAROTID CLINICAL HISTORY: Check carotid stenosis, bilateral, I65.23. TECHNIQUE: Ultrasound carotids performed using grayscale, color-flow, and spectral Doppler imaging. COMPARISON: No exams were available for comparison FINDINGS: RIGHT CAROTID ARTERY: Plaque: Moderate calcific plaque at bulb. Significant velocity elevation in the external carotid artery. LEFT CAROTID ARTERY: Plaque: Moderate calcific plaque at bulb. Significant velocity elevation in the external carotid artery. VERTEBRAL ARTERIES: Antegrade flow. Measurements: R Bulb: 116.1cm/s PS / 8.4cm/s ED R CCA: 77.6cm/s PS / 8.1cm/s ED R ECA: 233.8cm/s PS / 0cm/s ED R ICA Prox: 125.2cm/s PS / 15.7cm/s ED R ICA Mid: 89.2cm/s PS / 12.7cm/s ED R ICA Distal: 94.5cm/s PS /12.7cm/s ED R Vert: 56.6cm/s PS / 7.5cm/s ED R SVR: 1.6 R DVR: 1.9 L Bulb: 154.4cm/s PS / 19.3cm/s ED L CCA: 99cm/s PS / 12.7cm/s ED L ECA: 316cm/s PS / 0cm/s ED L ICA Prox: 166.8cm/s PS / 16.6cm/s ED L ICA Mid: 103.5cm/s PS / 15.6cm/s ED L ICA Distal: 50cm/s PS / 7.5cm/s ED L Vert: 36.7cm/s PS / 9cm/s ED L SVR: 1.7 L DVR: 1.3 IMPRESSION: Velocity elevations in the internal carotid arteries consistent with a moderate stenosis of 50-69 per cent, not significantly changed from prior. Criteria for Carotid Stenosis: Normal: ICA PSV <125 cm/s no plaque or intimal thickening is visible. <50% stenosis: ICA PSV <125 cm/s and plaque or intimal thickening is visible. 50-69% stenosis: ICA PSV is 125-250 cm/s and plaque is visible. >70% stenosis to near occlusion: ICA PSV >250 cm/s with visible plaque and luminal narrowing. DATA REPOSITORY:
== END 2023-01-24 02:04 ==
PROVIDERS: PCP Nurse Practitioner Family; Visit Provider Internal Medicine Cardiovascular Disease
DX: I65.23 Occlusion and stenosis of bilateral carotid arteries (principal)
CPT/HCPCS: 93880

== ENCOUNTER → 2023-04-10 12:42 | Outpatient (BNVA) | payer MEDICARE, SELFPAY | PROVIDERS: PCP Nurse Practitioner Family; Referring Provider Nurse Practitioner Family; Visit Provider Nurse Practitioner Adult Health | DX: G30.9 Alzheimer's disease, unspecified (principal); F02.80 Dementia in other diseases classified elsewhere, unspecified severity, without behavioral disturbance, psychotic disturbance, mood disturbance, and anxiety; I10 Essential (primary) hypertension | CPT/HCPCS: 99212; 99213 ==

== ENCOUNTER 2023-06-21 18:18 | Emergency (ER) | payer MEDICARE, SELFPAY ==
[2023-06-21] VITALS (36 sets, daily range): BP systolic 104–196; BP diastolic 43–129; PULSE 72–97; RESP 12–31; TEMP 36.3–36.9; O2SAT 94–99
--- NOTE | 2023-06-21 19:00 | RT.EKG_ITS ---
APPROVED REPORT Exam: Resting ECG Reason for Exam: weakness Patient Location: E HR:73 bpm ECG Measurements Heart Rate 73 AXIS OK 158 P 62 QRSd 104 QRS -75 QT 391 T 64 QTc 432 Conclusion Sinus rhythm...normal P axis, V-rate 60- 99 Left anterior fascicular block...axis(240,-40), init forces inf LVH with secondary repolarization abnormality...multi-LVH criteria, abnrm ST-T sinus rhythm, left axis, normal intervals, non ischemic
--- NOTE | 2023-06-21 19:00 | DI.CT_ITS ---
Exam(s) CT HEAD WO EXAM: CT HEAD WO CLINICAL HISTORY: fall, confusion. TECHNIQUE: Imaging Protocol: Axial computed tomography images with coronal and sagittal reformatted images were created and reviewed COMPARISON: CT CT BRAIN NECK CTA from 07/15/2020 FINDINGS: Ventricles and Extra axial spaces: Normal in size and morphology for the patient's age. Hemorrhage: None. Cerebral parenchyma: There are areas of decreased attenuation in the white matter consistent with sma ll vessel ischemic disease. There is no acute territorial infarct identified at this time. Midline shift: None. Brainstem/Cerebellum: Normal. Calvarium: Normal. Visualized Paranasal sinuses/Mastoids: Clear. Soft Tissues: Unremarkable. IMPRESSION: No acute intracranial process. RADIATION DOSE DELIVERED: Total DLP DATA REPOSITORY: All CT scans at this facility are submitted to the National Radiology Data Registry (NRDR) Dose Index Registry (DIR) with the [employer] (A[employer]). RADIATION OPTIMIZATION: All CT scans at this facility use at least one of these dose optimization te chniques: automated exposure control; mA and/or kV adjustment per patient size (includes targeted exa ms where dose is matched to clinical indication); or iterative reconstruction.
[2023-06-21 19:27] LABS: Abs Immature Grans 0.03 10^3/uL (0.0-0.06); Absolute Basophil Count 0.05 10^3/uL (0.0-0.2); Absolute Eosinophil Count 0.29 10^3/uL (0.0-0.7); Absolute Lymphocyte Count 1.81 10^3/uL (1.2-3.4); Absolute Monocyte Count 1.27 10^3/uL (0.1-0.8); Absolute Neutrophil Count 7.88 10^3/uL (1.2-6.7); Basophils % 0.4; Eosinophils % 2.6; HCT 43.1 % (36.0-46.0); HGB 14.4 g/dL (11.2-15.7); Immature Grans % 0.3; MCH 29.5 pg (27.0-33.0); MCHC 33.4 % (32.0-36.0); MCV 88 fL (80-95); MPV 10.6 fL (8.0-11.0); Monocytes % 11.2; Neutrophils % 69.5; Platelet Count 238 10^3/uL (130-400); RBC 4.88 10^6/uL (3.93-5.22); RDW 13.3 % (11.7-14.6); RDW-SD 43.3 fL; WBC 11.34 10^3/uL (4.4-10.8)
[2023-06-21] MEDS: Lactated Ringers 1,000 ML 1000 ML IV (19:31)
[2023-06-21 19:35] LABS: Bilirubin Negative (Negative); Blood Negative (Negative); Clarity Clear (Clear); Glucose Negative (Negative); Ketones Negative (Negative); Leukocyte Esterase Negative (Negative); Nitrite Negative (Negative); Specific Gravity 1.025 (1.005-1.025); Urobilinogen 0.2 mg/dL (Up to 0.2); pH 5.5 (5-8)
[2023-06-21 19:38] LABS: Magnesium 2.1 mg/dL (1.8-2.4)
[2023-06-21 19:42] LABS: ALT 31 U/L (14-59); AST 41 U/L (15-37); Albumin 3.9 g/dL (3.4-5.0); Alkaline Phosphatase 76 U/L (46-116); Anion Gap 9.9 mmol/L (3-11); BUN 40 mg/dL (7-18); Bilirubin, Total 0.6 mg/dL (0.2-1.0); CO2 27.1 mmol/L (21.0-32.0); CREATININE 1.4 mg/dL (0.55-1.02); Calcium 11.1 mg/dL (8.5-10.1); Chloride 100 mmol/L (98-107); Glucose 129 mg/dL (74-106); Lipase 27 U/L (16-77); Potassium 4.2 mmol/L (3.5-5.1); Sodium 137 mmol/L (136-145); Total Protein 8.1 g/dL (6.4-8.2)
[2023-06-21 19:43] LABS: Bacteria Rare HPF (Negative); C & S Indicated? No/Sq. Contamination; Casts 0-2 Hyaline LPF (Negative); Crystals Negative HPF (Negative); Epithelial Cells Many HPF (Negative); Mucus Heavy (Negative); RBC 0-2 HPF (0-2)
--- NOTE | 2023-06-21 19:45 | DI.CT_ITS ---
Exam(s) CT CHEST/ABD/PEL WO EXAM: CT CHEST/ABD/PEL WO CLINICAL HISTORY: back, chest, and abdominal pain TECHNIQUE: Imaging Protocol: Axial computed tomography images with coronal and sagittal reformatted images were created and reviewed COMPARISON: CT ABD PELVIS WITH CONTRAST from 05/05/[address] BRAIN NECK CTA from 07/15/2020 FINDINGS: The examination is limited due to patient motion artifact. CHEST: Tracheobronchial tree: Patent where visualized. Pulmonary parenchyma: No consolidation or dominant measurable mass. There is unchanged scarring seen in the right middle lobe. Calcified granuloma seen in the left upper lobe. Mediastinum and Maria Luz: No dominant adenopathy or fluid collection. The esophagus is unremarkable. Thyroid gland: Unremarkable. Pleura: No effusion or pneumothorax. Heart: The heart is not dilated. Coronary artery calcifications and/or stents are present. No perica rdial effusion. Aorta: Thoracic aorta non-dilated. Atherosclerosis is present. Lymph nodes: Within normal limits. Bones:Within normal limits for the patient's age. Soft tissues: Unremarkable. ABDOMEN: Liver: Normal density. No measurable mass. Gallbladder and Biliary Tract: No radiodense calculus or dilation. Pancreas: Normal density, no abnormal calcifications or inflammatory process. Spleen: Normal. Adrenals: No masses seen. Kidneys: Normal size, contour and axis. There is right nephrolithiasis. No evidence of obstructive u ropathy. Stable right renal cysts. No follow-up is recommended. Abdominal Aorta: Ectasia of the distal abdominal aorta measuring 2.7 cm in diameter. Atherosclerosis . There is a left renal artery stent. Bowel: There is colonic diverticulosis. There is no evidence of bowel obstruction. Appendix is unre markable. Peritoneal Cavity: No ascites, collection or mesenteric inflammatory response. No free air. Lymph Nodes: Within normal limits. Bones: Within normal limits for the patient's age. Soft Tissues: Unremarkable. PELVIS: Bladder: Symmetric distention, no gross wall thickening. Reproductive Organs: Status post hysterectomy. There is a stable 3 cm left adnexal cyst likely ovari an in origin. Lymph Nodes: Within normal limits. Bones: Within normal limits for the patient's age. Grade 1 anterolisthesis of L3 on L4 and L4 on L5. IMPRESSION: 1. No acute pulmonary process. 2. No acute abdominal or pelvic process. RADIATION DOSE DELIVERED: Total DLP Total DLP DATA REPOSITORY: All CT scans at this facility are submitted to the National Radiology Data Registry (NRDR) Dose Index Registry (DIR) with the [employer] ([employer]). RADIATION OPTIMIZATION: All CT scans at this facility use at least one of these dose optimization te chniques: automated exposure control; mA and/or kV adjustment per patient size (includes targeted exa ms where dose is matched to clinical indication); or iterative reconstruction.
--- NOTE | 2023-06-21 20:28 | DI.VRAD_ITS ---
PROCEDURE INFORMATION: Exam: CT Head Without Contrast Exam date and time: 06/21/2023 8:02 PM Age: 82 years old Clinical indication: Fall and confusion TECHNIQUE: Imaging protocol: Computed tomography of the head without contrast. COMPARISON: MR BRAIN WO 06/20/2021 1:53 PM FINDINGS: Brain: Age-related involutional changes and chronic microvascular ischemic disease. No evidence for acute transcortical infarct. No mass effect or midline shift. No extra-axial collection. No acute intracranial hemorrhage. Basal cisterns are patent. Cerebral ventricles: No ventriculomegaly. Paranasal sinuses: Visualized sinuses are unremarkable. No fluid levels. Mastoid air cells: Visualized mastoid air cells are well aerated. Orbital cavities: Bilateral cataract surgery. Bones/joints: Unremarkable. No acute fracture. Soft tissues: Unremarkable. IMPRESSION: No evidence for acute transcortical infarct, acute intracranial hemorrhage, or mass effect. Dictated and Authenticated by: Tha Haney MD. Ordering:DAVID Trinidad MD
--- NOTE | 2023-06-21 21:03 | DI.VRAD_ITS ---
PROCEDURE INFORMATION: Exam: CT Chest Without Contrast; Diagnostic Exam date and time: 06/21/2023 8:05 PM Age: 82 years old Clinical indication: Other: Back, chest, and abdominal pain; Prior surgery; Surgery date: 6+ months; Surgery type: Heart stent TECHNIQUE: Imaging protocol: Diagnostic computed tomography of the chest without contrast. COMPARISON: CR XR CHEST 2V PA LATERAL 12/16/2021 1:38 PM FINDINGS: Lungs: Unremarkable. No consolidation. No masses. Pleural spaces: Unremarkable. No pneumothorax. No pleural effusion. Heart: Unremarkable. No cardiomegaly. No pericardial effusion. Coronary arteries: Significant diffuse coronary artery calcifications. Lymph nodes: Unremarkable. No enlarged lymph nodes. Vasculature: Dense atherosclerotic calcification throughout the aorta. Bones/joints: Moderate degenerative disc changes throughout the thoracic spine. No vertebral body compression or acute fracture. Soft tissues: Unremarkable. IMPRESSION: No acute abnormality. Chronic osseous and atherosclerotic changes as described. PROCEDURE INFORMATION: Exam: CT Abdomen And Pelvis Without Contrast Exam date and time: 06/21/2023 8:05 PM Age: 82 years old Clinical indication: Other: Back, chest, and abdominal pain; Prior surgery; Surgery date: 6+ months; Surgery type: Heart stent TECHNIQUE: Imaging protocol: Computed tomography of the abdomen and pelvis without contrast. COMPARISON: CR XR CHEST 2V PA LATERAL 12/16/2021 1:38 PM FINDINGS: Liver: Normal. No mass. Gallbladder and bile ducts: Normal. No calcified stones. No ductal dilation. Pancreas: Normal. No ductal dilation. Spleen: Normal. No splenomegaly. Adrenal glands: Normal. No mass. Kidneys and ureters: Single tiny calyceal stone in the lower right kidney. Subcentimeter cortical cysts noted in the lower right kidney. Left kidney appears unremarkable. No hydronephrosis. Stomach and bowel: Moderate diverticulosis noted throughout the distal colon. No evidence of bowel obstruction. Appendix: No evidence of appendicitis. Intraperitoneal space: Unremarkable. No free air. No significant fluid collection. Vasculature: Dense atherosclerotic calcification of the aorta and iliac arteries. Dilation of the distal abdominal aorta measures 2.7 cm in greatest diameter. Lymph nodes: Unremarkable. No enlarged lymph nodes. Urinary bladder: Unremarkable as visualized. Reproductive: Uterus is surgically absent. No adnexal abnormality. Bones/joints: Moderate multilevel degenerative disc disease and facet arthropathy throughout the lower spine. Grade 1 anterolisthesis of L3, L4 and L5. No acute fracture. Soft tissues: Unremarkable. IMPRESSION: No acute abnormality. Chronic osseous and atherosclerotic changes as described, including 2.7 cm abdominal aortic aneurysm. Dictated and Authenticated by: Basil Grove MD. Ordering:DAVID Trinidad MD
[2023-06-21] MEDS: Lactated Ringers 500 ML IV (21:14)
--- NOTE | 2023-06-21 22:17 | W.ED.GENAD ---
Discharge Plan Disposition Patient Disposition: Home Condition: Stable Discharge Details Clinical Impression: Nausea & vomiting, Dysuria, Diarrhea, Acute dehydration Primary Care Provider: CHARISSE QURESHI ED Provider: Vivi King Home Meds and New Rx's Prescriptions: New cephalexin 500 mg capsule 500 mg PO BID 7 Days Qty: 14 0RF Continued estradiol [Estrace] 0.01 % (0.1 mg/gram) cream 1 g VG .2x/week Rx Instructions: apply small amount to labia daily. polyethylene glycol 3350 [Miralax] 17 gram/dose powder 17 g PO DAILY PRN (Reason: constipation) memantine 10 mg tablet 10 mg PO BID Qty: 180 3RF aspirin 81 mg tablet,delayed release (DR/EC) 162 mg PO DAILY Patient Comments: takes 2 tabs amlodipine 2.5 mg tablet 2.5 mg PO DAILY Metamucil 3.4 gram/5.4 gram powder 1 tbsp PO DAILY Qty: 660 0RF Rx Instructions: mix into at least 8 oz of water or juice before administering furosemide [Lasix] 20 mg tablet 20 mg PO DAILY PRN multivitamin Tablet 1 tab PO DAILY loratadine [Claritin] 10 mg tablet 10 mg PO DAILY lisinopril 20 mg tablet 20 mg PO DAILY Patient Comments: 12/27/22 per PCP records RH atorvastatin [Lipitor] 40 mg tablet 80 mg PO HS mecobalamin (vitamin B12) 1,000 mcg tablet,disintegrating 1,000 mcg sublingual DAILY Patient Comments: 12/27/22 Per PCP record pt takes M,W,F RH Rx Instructions: place tablet under tongue and allow to dissolve for at least30 secs before swallowing metoprolol succinate [Toprol XL] 50 mg tablet extended release 24 hr 50 mg PO DAILY Qty: 90 3RF acetaminophen [Mapap Extra Strength] 500 MG tablet 1,000 mg PO TID PRN PRN isosorbide mononitrate 120 MG tablet extended release 24 hr 120 mg PO DAILY nitroglycerin 0.4 MG tablet, sublingual 0.4 mg Sublingual DIRECTED Patient Comments: 08/12/14 pt reports last time used was 2-3 months ago. coenzyme Q10 [CoQ-10] 100 MG capsule 100 mg PO DAILY cholecalciferol (vitamin D3) [Vitamin D3] 2,000 UNIT capsule 2,000 unit PO DAILY meclizine 12.5 mg tablet 12.5 mg PO TID PRN (Reason: dizziness) Qty: 14 0RF esomeprazole magnesium [Nexium] 40 MG capsule,delayed release(DR/EC) 40 mg PO BID Qty: 0 0RF vitamin E 400 unit Capsule 400 unit PO DAILY Discharge Instructions Instructions: Dehydration (ED), Acute Nausea and Vomiting (ED), Acute Diarrhea (ED), Dysuria (ED) Additional Instructions: Take Keflex as prescribed Yogurt daily while on antibiotic Increased fluid hydration, at least eight 8 ounce glasses of water a day Take your medications as prescribed Recommendation for recheck with your primary care physician tomorrow Take Zofran as needed for nausea and vomiting bland diet as tolerated Referrals: CHARISSE QURESHI [employer] [Primary Care Provider] - Medical Decision Making 82-year-old female presenting with report of lower abdominal pain, nausea, vomiting, and sluggishness Secondary to age and comorbidities Diagnostic labs, CT imaging, fluids, antiemetics were administered, placed on telemetry monitoring, EKG without significant acute change from prior and troponin within normal limits Patient feeling improved after medications, patient does have white blood cells in her urine and is having dysuria and discomfort, I will start patient on cephalexin. Likely Will also give her antiemetics and encourage fluid hydration at home She is able to tolerate p.o. in the emergency department, she is ambulatory with steady gait She is encouraged to be reevaluated by primary care physician tomorrow for reassessment and to return immediately should she have new or worsening complaints Daughter will either stay with patient this evening or call her first thing in the morning to recheck Ambulatory trial was performed in the emergency department CT head, chest abdomen and pelvis are performed without contrast secondary to allergy but do not show evidence of acute abnormality, abdominal aortic aneurysm noted, 2.7, patient will follow-up HPI General Date/Time Provider Initiated Documentation: 06/21/23 18:51. HPI Narrative: This 82-year-old female presents with abdominal pain shoulder pain. She states she has been feeling lightheaded and has been having some nausea, vomiting, and diarrhea. Denies any chest pain or shortness of breath. Denies any fever or chills. Denies any blood in vomitus or stool. Has some discomfort in the suprapubic region. States she was about to sleep in a recliner and is unsure what happened but woke up on the floor. Denies any loss of consciousness. This was yesterday evening. Today she was still having some discomfort and felt lightheaded and sluggish which is why she requested evaluation in the emergency department. She states she has had some urinary frequency. Has not taken her medication for approximately 24 hours because of her nausea. Think she had 2 episodes of vomiting. Related Data Home Medications Medication Instructions Recorded Confirmed acetaminophen 500 mg tablet (Mapap 1,000 mg PO TID PRN PRN 08/10/14 04/10/23 Extra Strength) cholecalciferol (vitamin D3) 50 2,000 unit PO DAILY 08/10/14 04/10/23 mcg (2,000 unit) capsule (Vitamin D3) coenzyme Q10 100 mg capsule 100 mg PO DAILY 08/10/14 04/10/23 (CoQ-10) isosorbide mononitrate 120 mg 120 mg PO DAILY 08/10/14 04/10/23 tablet,extended release 24 hr nitroglycerin 0.4 mg sublingual 0.4 mg sublingual DIRECTED 08/10/14 04/10/23 tablet esomeprazole magnesium 40 mg 40 mg PO BID ##0 08/28/16 04/10/23 capsule,delayed release (Nexium) aspirin 81 mg tablet,delayed 162 mg PO DAILY 07/10/19 04/10/23 release meclizine 12.5 mg tablet 12.5 mg PO TID PRN dizziness #14 07/15/20 04/10/23 tabs vitamin E 268 mg (400 unit) capsule 400 unit PO DAILY 11/26/20 04/10/23 furosemide 20 mg tablet (Lasix) 20 mg PO DAILY PRN 02/28/21 04/10/23 multivitamin 1 tab PO DAILY 06/14/21 04/10/23 amlodipine 2.5 mg tablet 2.5 mg PO DAILY 08/07/22 04/10/23 estradiol 0.01% (0.1 mg/gram) 1 g vaginal .2x/week 08/07/22 04/10/23 vaginal cream (Estrace) loratadine 10 mg tablet (Claritin) 10 mg PO DAILY 08/07/22 04/10/23 polyethylene glycol 3350 17 17 g PO DAILY PRN constipation 08/07/22 04/10/23 gram/dose oral powder (Miralax) atorvastatin 40 mg tablet (Lipitor) 80 mg PO HS 12/27/22 04/10/23 lisinopril 20 mg tablet 20 mg PO DAILY 12/27/22 04/10/23 mecobalamin (vitamin B12) 1,000 1,000 mcg sublingual DAILY 12/27/22 04/10/23 mcg disintegrating tablet,sublingual psyllium husk 3.4 gram/5.4 gram 1 tbsp PO DAILY #660 grams 03/12/23 04/10/23 oral powder (Metamucil) memantine 10 mg tablet 10 mg PO BID #180 tabs 04/10/23 04/10/23 metoprolol succinate 50 mg 50 mg PO DAILY #90 tabs 06/04/23 tablet,extended release 24 hr (Toprol XL) cephalexin 500 mg capsule 500 mg PO BID 7 days #14 caps 06/21/23 Previous Rx's Medication Instructions Recorded esomeprazole magnesium 40 mg 40 mg PO BID ##0 08/28/16 capsule,delayed release (Nexium) meclizine 12.5 mg tablet 12.5 mg PO TID PRN dizziness #14 07/15/20 tabs psyllium husk 3.4 gram/5.4 gram 1 tbsp PO DAILY #660 grams 03/12/23 oral powder (Metamucil) memantine 10 mg tablet 10 mg PO BID #180 tabs 04/10/23 metoprolol succinate 50 mg 50 mg PO DAILY #90 tabs 06/04/23 tablet,extended release 24 hr (Toprol XL) cephalexin 500 mg capsule 500 mg PO BID 7 days #14 caps 06/21/23 Allergies Allergy/AdvReac Type Severity Reaction Status Date / Time Iodinated Contrast Media Allergy Severe critical Verified 04/10/23 12:44 Sulfa (Sulfonamide Allergy Intermediate itching Verified 04/10/23 12:44 Antibiotics) Latex, Natural Rubber Allergy rash and Verified 04/10/23 12:44 itching Penicillins Allergy rash/pustul Verified 04/10/23 12:44 e metronidazole AdvReac Intermediate shooting Verified 04/10/23 12:44 unilateral eye pain General Stated Complaint: Abd Prob STEVE: 3 PFSH All Active Problems (Updated 06/21/23 @ 22:[address]) Acute dehydration (Acute) Diarrhea (Acute) Dysuria (Acute) Nausea & vomiting (Acute) Constipation (Acute) Carotid stenosis, bilateral (Acute) Hypertension (Chronic 05/05/14) Pain in toe (Acute) Nail dystrophy (Acute) Nocturia (Acute) UTI (urinary tract infection) (Acute) Cough (Acute) Incomplete bladder emptying (Acute) Alzheimer's dementia without behavioral disturbance (Acute) Cognitive impairment (Acute) Acute UTI (Acute) Vulvar pain (Acute) Vaginal atrophy (Acute) 12/05/2019. And vulvar atrophy. Rx with topical estradiol. Dysuria (Acute) Acute on chronic anemia (Acute) Acute anemia (Acute) H/O rectocele repair (Acute) 06/25/2019 anterior and posterior colporrhaphy. 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 exercise stress test, exercise stress CT: No ischemia or scar, left ventricular function normal. LV EF 66%. Normal wall motion wall thickening. 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 I recommend the patient restrict her p.o. intake at this time Pre-diabetes Renal artery stenosis Urinary incontinence Surgical History H/O heart artery stent x3 History of colonoscopy History of tubal ligation Hx of bilateral cataract extraction ureteral stent 2005 Vaginal hysterectomy (~1988) for endometriosis. Social History Smoking/Tobacco Use Status: Former Tobacco Use Smoking risk assessment performed?: Yes Alcohol Intake: never Drug use: Never Substance use type: does not use Household members: none and other Details: Do you feel safe at home: Yes Do you feel safe in your relationship?: Yes Female Reproductive History Menstrual Menopause type: surgical Course Vital Signs Vital signs: Vital Signs Temperature 36.3 C L 06/21/23 18:22 Pulse 96 H 06/21/23 18:22 Respiratory Rate 16 06/21/23 18:22 Blood Pressure 131/116 H 06/21/23 18:22 Pulse Oximetry 94 06/21/23 18:22 Temperature 36.9 C 06/21/23 18:41 Temperature Source Oral 06/21/23 18:41 Pulse 97 H 06/21/23 22:16 Pulse 86 06/21/23 21:20 Respiratory Rate 18 06/21/23 22:16 Respiratory Effort Normal, Non-Labored 06/21/23 18:28 Blood Pressure 166/77 H 06/21/23 22:16 Blood Pressure Mean 130 06/21/23 21:17 Blood Pressure Position Supine 06/21/23 18:41 Pulse Oximetry 97 06/21/23 22:16 Oxygen Delivery Method Room Air 06/21/23 22:16 Oxygen Flow Rate 0 06/21/23 22:16 Pain Level 5 06/21/23 18:41 Lab/Test Results Lab/Test Results: Laboratory Tests Range/Units 06/21/23 06/21/23 06/21/23 18:35 19:29 22:16 WBC (4.4-10.8) 10^3/uL 11.34 H RBC (3.93-5.22) 10^6/uL 4.88 Hgb (11.2-15.7) g/dL 14.4 Hct (36.0-46.0) % 43.1 MCV (80-95) fL 88 MCH (27.0-33.0) pg 29.5 MCHC (32.0-36.0) % 33.4 RDW (11.7-14.6) % 13.3 Plt Count (130-400) 10^3/uL 238 MPV (8.0-11.0) fL 10.6 Immature Gran % 0.3 Neutrophils % 69.5 Lymphocytes % 16.0 Monocytes % 11.2 Eosinophils % 2.6 Basophils % 0.4 Nucleated RBC % (0.0-0.3) % 0.0 Absolute Neutrophils (1.2-6.7) 10^3/uL 7.88 H Absolute Lymphocytes (1.2-3.4) 10^3/uL 1.81 Absolute Monocytes (0.1-0.8) 10^3/uL 1.27 H Absolute Eosinophils (0.0-0.7) 10^3/uL 0.29 Absolute Basophils (0.0-0.2) 10^3/uL 0.05 Sodium (136-145) mmol/L 137 Potassium (3.5-5.1) mmol/L 4.2 Chloride (98-107) mmol/L 100 Carbon Dioxide (21.0-32.0) mmol/L 27.1 Anion Gap (3-11) mmol/L 9.9 BUN (7-18) mg/dL 40 H Creatinine (0.55-1.02) mg/dL 1.4 H Est GFR (CKD-EPI 2020) (mL/min/1.73m2) 37.80 Glucose (74-106) mg/dL 129 H Calcium (8.5-10.1) mg/dL 11.1 H Magnesium (1.8-2.4) mg/dL 2.1 Total Bilirubin (0.2-1.0) mg/dL 0.6 AST (15-37) U/L 41 H ALT (14-59) U/L 31 Alkaline Phosphatase (46-116) U/L 76 Troponin I Cancelled Total Protein (6.4-8.2) g/dL 8.1 Albumin (3.4-5.0) g/dL 3.9 Lipase (16-77) U/L 27 Urine Color (Yellow) Yellow Urine Clarity (Clear) Clear Urine pH (5-8) 5.5 Ur Specific [place] (1.005-1.025) 1.025 Urine Protein (Negative) mg/dL 30 H Urine Ketones (Negative) mg/dL Negative Urine Blood (Negative) Negative Urine Nitrite (Negative) Negative Urine Bilirubin (Negative) Negative Urine Urobilinogen (Up to 0.2) mg/dL 0.2 Ur Leukocyte Esterase (Negative) Negative Urine RBC (0-2) HPF 0-2 Urine WBC (0-5) HPF 5-10 Ur Epithelial Cells (Negative) HPF Many Urine Crystals (Negative) HPF Negative Urine Bacteria (Negative) HPF Rare Urine Casts (Negative) LPF 0-2 Hyaline Urine Mucus (Negative) Heavy Ur Culture Indicated? No/Sq. Contamination Urine Glucose (Negative) mg/dL Negative
[2023-06-21] MEDS: Cephalexin 500 MG CAP, 4 CAPS/BTL PO (22:41)
[2023-06-21] MEDS: Acetaminophen 325 MG TAB 650 MG PO (22:41)
--- NOTE | 2023-06-22 09:33 | NUR.NOTE ---
Accessed chart to determine orders for EKG and to determine whether or not one needs to be cancelled. Nursing Note:
--- NOTE | 2023-06-25 09:58 | NUR.NOTE ---
Accessed chart to determine orders for EKG and to determine whether or not one needs to be cancelled. Nursing Note:
== END 2023-06-21 22:56 | disposition home or self-care (01) ==
PROVIDERS: Emergency Provider Physician Assistant; PCP Nurse Practitioner Family
DX: R10.9 Unspecified abdominal pain (principal); R11.2 Nausea with vomiting, unspecified; R19.7 Diarrhea, unspecified; E86.0 Dehydration; R30.0 Dysuria; I25.2 Old myocardial infarction; I71.40 Abdominal aortic aneurysm, without rupture, unspecified; F03.90 Unspecified dementia, unspecified severity, without behavioral disturbance, psychotic disturbance, mood disturbance, and anxiety; Z79.82 Long term (current) use of aspirin; Z79.899 Other long term (current) drug therapy
CPT/HCPCS: 36415; 71250; 80053; 83690; 93005; 99284; 70450; 74176; 81003; 81015; 83735; 84484; 85025; 93010

== ENCOUNTER 2023-08-07 14:27 | Outpatient (REF) | payer MEDICARE, SELFPAY ==
[2023-08-07 20:36] LABS: Abs Immature Grans 0.03 10^3/uL (0.0-0.06); Absolute Basophil Count 0.08 10^3/uL (0.0-0.2); Absolute Eosinophil Count 0.24 10^3/uL (0.0-0.7); Absolute Lymphocyte Count 2.62 10^3/uL (1.2-3.4); Absolute Monocyte Count 0.64 10^3/uL (0.1-0.8); Absolute Neutrophil Count 4.53 10^3/uL (1.2-6.7); Eosinophils % 2.9; HCT 39.2 % (36.0-46.0); HGB 12.6 g/dL (11.2-15.7); Immature Grans % 0.4; Lymphocytes % 32.2; MCH 29.8 pg (27.0-33.0); MCHC 32.1 % (32.0-36.0); MCV 93 fL (80-95); MPV 10.3 fL (8.0-11.0); Monocytes % 7.9; Neutrophils % 55.6; Platelet Count 303 10^3/uL (130-400); RBC 4.23 10^6/uL (3.93-5.22); RDW 14.2 % (11.7-14.6); RDW-SD 47.8 fL; WBC 8.14 10^3/uL (4.4-10.8)
[2023-08-07 20:38] LABS: Bilirubin Negative (Negative); Blood Negative (Negative); Clarity Clear (Clear); Glucose Negative (Negative); Ketones Negative (Negative); Leukocyte Esterase Negative (Negative); Nitrite Negative (Negative); Urobilinogen 0.2 mg/dL (Up to 0.2)
[2023-08-07 20:55] LABS: Hemoglobin A1C 5.3 % (<5.7)
[2023-08-07 20:56] LABS: Iron 63 ug/dL (50-170); Total Iron Binding Capacity 269 ug/dL (250-450); Transferrin Sat 23 % (15-50)
[2023-08-07 21:10] LABS: ALT 24 U/L (14-59); AST 16 U/L (15-37); Albumin 4.3 g/dL (3.4-5.0); Alkaline Phosphatase 105 U/L (46-116); Anion Gap 5.6 mmol/L (3-11); BUN 12 mg/dL (7-18); Bilirubin, Total 0.3 mg/dL (0.2-1.0); CO2 28.4 mmol/L (21.0-32.0); CREATININE 0.8 mg/dL (0.55-1.02); Calcium 10.9 mg/dL (8.5-10.1); Chloride 106 mmol/L (98-107); Estimated GFR 73.98 (mL/min/1.73m2); Ferritin 347 ng/mL (8-252); Glucose 97 mg/dL (74-106); Potassium 3.9 mmol/L (3.5-5.1); Sodium 140 mmol/L (136-145); Total Protein 7.1 g/dL (6.4-8.2)
== END 2023-08-07 14:28 | disposition home or self-care (01) ==
LOC: NCHCN 14:27
PROVIDERS: PCP Nurse Practitioner Family; Visit Provider Nurse Practitioner Family
DX: D64.9 Anemia, unspecified (principal); R73.03 Prediabetes; N28.9 Disorder of kidney and ureter, unspecified; R35.0 Frequency of micturition
CPT/HCPCS: 80053; 81003; 82728; 83036; 83540; 83550; 85025

== ENCOUNTER 2023-11-06 14:45 | Inpatient (IN) | payer MEDICARE, SELFPAY ==
[2023-11-06] VITALS (36 sets, daily range): BP systolic 120–185; BP diastolic 43–103; PULSE 70–99; RESP 12–24; TEMP 36.1–36.9; O2SAT 91–97
--- NOTE | 2023-11-06 14:45 | DI.RAD_ITS ---
Exam(s) XR PORTABLE CHEST AP EXAM: XR PORTABLE CHEST AP CLINICAL HISTORY: Epigastric pain TECHNIQUE: 2D digital imaging was performed. COMPARISON: CT CT CHEST/ABD/PEL WO from 06/21/2023 FINDINGS: LUNGS: Clear. No pleural abnormality seen. HEART: Normal size. AORTA: Tortuous. BONES: Unremarkable for age. Soft tissues: Unremarkable. IMPRESSION: No acute findings. DATA REPOSITORY: RADIATION DOSE DELIVERED:
--- NOTE | 2023-11-06 14:45 | RT.EKG_ITS ---
APPROVED REPORT Exam: Resting ECG Reason for Exam: chest pain Patient Location: E HR:82 bpm ECG Measurements Heart Rate 82 AXIS GA 160 P 55 QRSd 103 QRS -54 QT 362 T 67 QTc 423 Conclusion Sinus rhythm...normal P axis, V-rate 60- 99 Inferior infarct, acute...ST>0.10mV, T upright, II III aVF Anterior infarct, acute...ST >0.25mV, V2-V5 Normal sinus rhythm at a rate of 82 with interventricular conduction delay and a QRS of 130 ms. GA w ithin normal limits. QTc within normal limits. Compared to prior dated December 2022 there are new mild inferior ST segment depressions and no incomplete right bundle branch block. Mild ST segment depres jaun in aVL and lead I. Concerning for acute injury pattern.
--- NOTE | 2023-11-06 14:49 | W.ED.GENAD ---
Discharge Plan Disposition Patient Disposition: Admit to [facility] Discharge Details Clinical Impression: Acute non-ST elevation myocardial infarction (NSTEMI), Candidiasis Admit Date/Time: 11/06/23 17:30 Admit Provider: Matthew Garcia Attending Provider: Matthew Garcia Primary Care Provider: CHARISSE QURESHI ED Provider: Jordan Hudson Discharge Data Discharge Date/Time-TO BE ENTERED AT DEPARTURE: 11/06/23 18:20 HPI General Date/Time Provider Initiated Documentation: 11/06/23 14:49. HPI Narrative: MDM This is an 83-year-old female normothermic and not tachycardic 84-year-old female with coronary artery disease hyperlipidemia and epigastric pain concerning for the possibility of ACS given relief with nitroglycerin. Given shortness of breath with history of AAA will obtain CT angiogram chest abdomen pelvis. My suspicion is low for PE however patient will receive a CT angiogram of his chest. No pain out of proportion to suggest necrotizing soft tissue infection. No tearing quality to suggest aortic dissection. No lower extremity edema so doubt CHF so I did not send a proBNP. Pancreatitis is certainly in the differential given epigastric tenderness. Acute cholecystitis is certainly possible. No rash to abdomen to suggest zoster. No left upper quadrant tenderness to suggest splenic arterial aneurysm. No dysuria no frequency so I did not send a urinalysis. Patient does have signs of a candidiasis infection on her abdomen for which we will treat her with clotrimazole. 3:13 PM ECG concerning for acute injury pattern for which I will page cardiology at [facility] [place] for transfer. Will treat with nitroglycerin and aspirin. 3:30 PM I spoke with Dr. Valladares at [facility] [place]. He agreed not to treat the patient as a STEMI but to give her heparinization and clopidogrel load 300 mg. He accept the patient of Dr. Plummer as an NSTEMI. Will update with a troponin and complete CT angiogram chest abdomen pelvis. 3:41 PM Patient felt improved sp nitro. Her repeat BP is ~120 mm Hg systolic. Her trop is 2,516 ng/L. Will treat w/heparin & clopidogrel sp CTA. Patient remains well appearing. 4 PM Negative lipase. Positive D-dimer. CBC with leukocytosis new compared to prior. No anemia. No thrombocytopenia. I updated [facility] concerning the patient's markedly positive troponin. 5:41 PM I spoke with Dr. Garcia who graciously agreed to accept the patient for hospitalization. Chronic conditions affecting the care of the patient: AAA coronary artery disease History obtained from an outside historian: N/A External record review: [facility] [place] [facility] EMR Diagnostic interpretations performed by me: Per my independent interpretation chest x-ray shows: Per my independent interpretation EKG shows: Normal sinus rhythm at a rate of 82 with interventricular conduction delay and a QRS of 130 ms. [place] within normal limits. QTc within normal limits. Compared to prior dated December 2022 there are new mild inferior ST segment depressions and no incomplete right bundle branch block. Mild ST segment depression in aVL and lead I. Concerning for acute injury pattern. ]Medications: Aspirin, heparin, clopidogrel Social determinants of health affecting disposition: N/A Management discussed with: Cardiology [facility] & hospitalist Treatment/interventions considered: STEMI activation but deferred based on duration of time and not being ECG. Response to therapies provided: Improved symptoms with nitro HPI This is an 83-year-old female with hypertension and coronary artery disease status post remote PCI and hyperlipidemia arrived to the emergency department via private vehicle in the setting of chest and epigastric pressure. Patient reports that she has had her symptoms for the past 4 days and also felt unwell. Her symptoms were relieved by 2 doses of nitroglycerin. They recurred this morning. She describes a steady pressure in her epigastrium associated with dizziness. She has not used nitroglycerin for the past 3 days. No radiation. Mild shortness of breath. Endorses nausea. No history of DVT. Denies routine tobacco, ethanol, and illicits. No diaphoresis. No syncope. Exam General: Well-appearing in no acute distress speaking in complete sentences. Head: Normocephalic, atraumatic. Eye: Extraocular eye movements intact. No conjunctival injection. No scleral icterus. Ear, nose, mouth, throat: Grossly normal inspection. Normal voice, handling secretions normally. Neck: Trachea midline. Cardiovascular: Well-perfused distal extremities. Regular rate and rhythm Respiratory: Nonlabored respiration. Clear lungs bilaterally. Gastrointestinal: Nondistended abdomen. Mild epigastric tenderness. No rebound. No guarding. Musculoskeletal: No edema. Moving all 4 extremities spontaneously. Skin: Normal for age and race, grossly normal temperature and turgor. No acute rash. Neurologic: Alert and appropriate, no apparent acute deficits. Psychiatric: Mood and manner are appropriate. Grooming and personal hygiene are appropriate. Related Data Home Medications Medication Instructions Recorded Confirmed acetaminophen 500 mg tablet (Mapap 1,000 mg PO TID PRN PRN 08/10/14 11/06/23 Extra Strength) cholecalciferol (vitamin D3) 50 2,000 unit PO DAILY 08/10/14 11/06/23 mcg (2,000 unit) capsule (Vitamin D3) coenzyme Q10 100 mg capsule 100 mg PO DAILY 08/10/14 11/06/23 (CoQ-10) isosorbide mononitrate 120 mg 120 mg PO DAILY 08/10/14 11/06/23 tablet,extended release 24 hr nitroglycerin 0.4 mg sublingual 0.4 mg sublingual DIRECTED 08/10/14 11/06/23 tablet esomeprazole magnesium 40 mg 40 mg PO BID ##0 08/28/16 11/06/23 capsule,delayed release (Nexium) aspirin 81 mg tablet,delayed 162 mg PO DAILY 07/10/19 11/06/23 release meclizine 12.5 mg tablet 12.5 mg PO TID PRN dizziness #14 07/15/20 11/06/23 tabs vitamin E 268 mg (400 unit) capsule 400 unit PO DAILY 11/26/20 11/06/23 furosemide 20 mg tablet (Lasix) 20 mg PO DAILY PRN 02/28/21 11/06/23 multivitamin 1 tab PO DAILY 06/14/21 11/06/23 amlodipine 2.5 mg tablet 2.5 mg PO DAILY 08/07/22 11/06/23 estradiol 0.01% (0.1 mg/gram) 1 g vaginal .2x/week 08/07/22 11/06/23 vaginal cream (Estrace) loratadine 10 mg tablet (Claritin) 10 mg PO DAILY 08/07/22 11/06/23 polyethylene glycol 3350 17 17 g PO DAILY PRN constipation 08/07/22 11/06/23 gram/dose oral powder (Miralax) atorvastatin 40 mg tablet (Lipitor) 80 mg PO HS 12/27/22 11/06/23 lisinopril 20 mg tablet 20 mg PO DAILY 12/27/22 11/06/23 mecobalamin (vitamin B12) 1,000 1,000 mcg sublingual DAILY 12/27/22 11/06/23 mcg disintegrating tablet,sublingual psyllium husk 3.4 gram/5.4 gram 1 tbsp PO DAILY #660 grams 03/12/23 11/06/23 oral powder (Metamucil) memantine 10 mg tablet 10 mg PO BID #180 tabs 04/10/23 11/06/23 metoprolol succinate 50 mg 50 mg PO DAILY #90 tabs 06/04/23 11/06/23 tablet,extended release 24 hr (Toprol XL) ondansetron 4 mg disintegrating 4 mg PO Q8H 09/19/23 11/06/23 tablet sodium chloride 5 % eye drops 1 drp ophthalmic (eye) QHS 09/19/23 11/06/23 Previous Rx's Medication Instructions Recorded esomeprazole magnesium 40 mg 40 mg PO BID ##0 08/28/16 capsule,delayed release (Nexium) meclizine 12.5 mg tablet 12.5 mg PO TID PRN dizziness #14 07/15/20 tabs psyllium husk 3.4 gram/5.4 gram 1 tbsp PO DAILY #660 grams 03/12/23 oral powder (Metamucil) memantine 10 mg tablet 10 mg PO BID #180 tabs 04/10/23 metoprolol succinate 50 mg 50 mg PO DAILY #90 tabs 06/04/23 tablet,extended release 24 hr (Toprol XL) Allergies Allergy/AdvReac Type Severity Reaction Status Date / Time Iodinated Contrast Media Allergy Severe critical Verified 11/06/23 14:52 Sulfa (Sulfonamide Allergy Intermediate itching Verified 11/06/23 14:52 Antibiotics) Latex, Natural Rubber Allergy rash and Verified 11/06/23 14:52 itching Penicillins Allergy rash/pustul Verified 11/06/23 14:52 e metronidazole AdvReac Intermediate shooting Verified 11/06/23 14:52 unilateral eye pain General STEVE: 3 Medical Decision Making Quality:SDOH Health Related Social Needs: No Data to Display Critical Care Time Critical Care Time Critical Care Time: Yes Total Critical Care Time: 45 Attestation: Bedside assessment & consult with cardiology @ [facility] [place]. [facility] All Active Problems (Updated 11/06/23 @ 16:22 by Jordan Hudson MD) Candidiasis (Acute) Acute non-ST elevation myocardial infarction (NSTEMI) (Acute) Urinary frequency (Acute) Constipation (Acute) Carotid stenosis, bilateral (Acute) Hypertension (Chronic 05/05/14) Pain in toe (Acute) Nail dystrophy (Acute) Nocturia (Acute) UTI (urinary tract infection) (Acute) Cough (Acute) Incomplete bladder emptying (Acute) Alzheimer's dementia without behavioral disturbance (Acute) Cognitive impairment (Acute) Acute UTI (Acute) Vulvar pain (Acute) Vaginal atrophy (Acute) 12/05/2019. And vulvar atrophy. Rx with topical estradiol. Dysuria (Acute) Acute on chronic anemia (Acute) Acute anemia (Acute) H/O rectocele repair (Acute) 06/25/2019 anterior and posterior colporrhaphy. 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 exercise stress test, exercise stress CT: No ischemia or scar, left ventricular function normal. LV EF 66%. Normal wall motion wall thickening. 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 I recommend the patient restrict her p.o. intake at this time Pre-diabetes Renal artery stenosis Urinary incontinence Surgical History H/O heart artery stent x3 History of colonoscopy History of tubal ligation Hx of bilateral cataract extraction ureteral stent 2005 Vaginal hysterectomy (~1988) for endometriosis. Social History Smoking/Tobacco Use Status: Former Tobacco Use Smoking risk assessment performed?: Yes Alcohol Intake: never Drug use: Never Substance use type: does not use Household members: none and other Details: Housing: apartment Do you feel safe at home: Yes Do you feel safe in your relationship?: Yes Female Reproductive History Menstrual Menopause type: surgical
--- NOTE | 2023-11-06 15:15 | DI.CT_ITS ---
Exam(s) CT THORAX ABD/PEL CTA EXAM: CT THORAX ABD/PEL CTA CLINICAL HISTORY: Chest pain history of AAA. TECHNIQUE: Imaging Protocol: Axial CT angiography was performed with multi-slice acquisition and m ulti-planar and/or 3D reconstructions. CONTRAST MATERIAL: Intravenous: Omnipaque 350 contrast volume:100 mL Oral: No COMPARISON: CT CT CHEST/ABD/PEL WO from 06/21/2023 FINDINGS: CHEST: Tracheobronchial tree: Patent where visualized. Pulmonary parenchyma: No consolidation or dominant measurable mass. There is unchanged scarring in th e medial aspect of the right middle lobe. Pulmonary Arteries: Due to the bolus timing, pulmonary artery enhancement is suboptimal for evaluatio n of pulmonary emboli. No large central pulmonary embolus is seen. Mediastinum and Maria Luz: No dominant adenopathy or fluid collection. The esophagus is unremarkable. Visualized thyroid: Unremarkable. Pleura: No effusion or pneumothorax. Heart: Mild cardiomegaly. Coronary artery calcification is present. No pericardial effusion. Aorta: Thoracic aorta non-dilated. Atherosclerotic calcification is present. No evidence of dissecti on. The appearance of the posterior wall of the proximal descending thoracic aorta is unchanged comp ared to the prior examination. (Series 6, image 126 compared with series 3, image 143 on 06/21/2023) . Soft Tissues: Unremarkable. Bones: Within normal limits for the patient's age. ABDOMEN AND PELVIS: Abdomen: Celiac axis/mesenteric arteries: No evidence of occlusion or significant stenosis. Atherosclerosis a t the origin of the celiac axis and the superior mesenteric artery. Renal Arteries: No evidence of occlusion or significant stenosis. There is a stent in the proximal l eft renal artery. Minimal atherosclerosis is seen at the origin of the right renal artery. Aorta: No evidence of occlusion or significant stenosis. Ectasia of the distal abdominal aorta yashira uring 2.6 cm. No evidence of aneurysm or dissection. Atherosclerotic calcification is present. Pelvis: Iliac Arteries: No evidence of occlusion or significant stenosis. Atherosclerotic calcification is present. Common Femoral Arteries: No evidence of occlusion or significant stenosis. Atherosclerotic calcific ation is present. ABDOMEN: Liver: Fatty infiltration of the liver is suggested on this examination. No measurable mass. Gallbladder and Biliary Tract: No radiodense calculus or dilation. Pancreas: Normal density, no abnormal calcifications or inflammatory process. Spleen: Normal. Adrenals: No masses seen. Kidneys: Normal size, contour and axis. No radiodense stones or obstructive uropathy. Simple right re nal cysts. No follow-up is recommended. Bowel: There is diverticulosis of the colon without evidence of acute diverticulitis. There is no ev idence of bowel obstruction or bowel wall thickening. Appendix is unremarkable. Peritoneal Cavity: No ascites, collection or mesenteric inflammatory response. No free air. Lymph Nodes: Within normal limits. Bones: Within normal limits for the patient's age. Soft Tissues: Unremarkable. PELVIS: Bladder: Symmetric distention, no gross wall thickening. Reproductive Organs: Status post hysterectomy. Stable left adnexal cystic lesion. It measures 3.1 x 2.2 cm. (Series 6, image 942). This is likely ovarian in origin. Lymph Nodes: Within normal limits. Bones: Within normal limits for the patient's age. IMPRESSION: 1. No evidence of thoracic aortic aneurysm or dissection. 2. No acute pulmonary process. 3. No acute abdominal or pelvic process. 4. Incidental finding seen in the chest, abdomen and pelvis which appears stable. 5. Stable ectasia of the distal abdominal aorta measuring 2.6 cm in diameter. RADIATION DOSE DELIVERED: 817.67mGy.cm Total DLP DATA REPOSITORY: All CT scans at this facility are submitted to the National Radiology Data Registry (NRDR) Dose Index Registry (DIR) with the [employer] (A[employer]). RADIATION OPTIMIZATION: All CT scans at this facility use at least one of these dose optimization te chniques: automated exposure control; mA and/or kV adjustment per patient size (includes targeted exa ms where dose is matched to clinical indication); or iterative reconstruction.
[2023-11-06 15:19] LABS: Abs Immature Grans 0.05 10^3/uL (0.0-0.06); Absolute Eosinophil Count 0.03 10^3/uL (0.0-0.7); Absolute Lymphocyte Count 2.06 10^3/uL (1.2-3.4); Basophils % 0.4; Eosinophils % 0.2; HCT 42.9 % (36.0-46.0); HGB 14.3 g/dL (11.2-15.7); Immature Grans % 0.4; Lymphocytes % 15.1; MCH 29.9 pg (27.0-33.0); MCHC 33.3 % (32.0-36.0); MCV 90 fL (80-95); MPV 9.7 fL (8.0-11.0); Monocytes % 5.9; Platelet Count 266 10^3/uL (130-400); RBC 4.78 10^6/uL (3.93-5.22); RDW 12.8 % (11.7-14.6); WBC 13.61 10^3/uL (4.4-10.8)
[2023-11-06 15:22] LABS: Absolute Basophil Count 0.05 10^3/uL (0.0-0.2); Absolute Neutrophil Count 10.62 10^3/uL (1.2-6.7)
[2023-11-06] MEDS: Aspirin 81 MG CHEW 324 MG CH (15:27)
[2023-11-06 15:36] LABS: ALT 24 U/L (14-59); AST 26 U/L (15-37); Albumin 4.5 g/dL (3.4-5.0); Alkaline Phosphatase 103 U/L (46-116); Anion Gap 9.2 mmol/L (3-11); BUN 17 mg/dL (7-18); Bilirubin, Total 0.8 mg/dL (0.2-1.0); CO2 28.8 mmol/L (21.0-32.0); CREATININE 0.8 mg/dL (0.55-1.02); Calcium 11.3 mg/dL (8.5-10.1); Chloride 103 mmol/L (98-107); Estimated GFR 73.52 (mL/min/1.73m2); Glucose 112 mg/dL (74-106); Lipase 23 U/L (16-77); Potassium 3.8 mmol/L (3.5-5.1); Sodium 141 mmol/L (136-145); Total Protein 8.4 g/dL (6.4-8.2)
[2023-11-06 15:37] LABS: Troponin I 2516 ng/L (< or =60)
[2023-11-06] MEDS: Normal Saline 500 ML IV (15:49)
[2023-11-06 15:54] LABS: D-Dimer 1158 ng/mlFEU (<500)
[2023-11-06] MEDS: Omnipaque 350 MG/ML 100 ML BTL IJ (16:16)
[2023-11-06] MEDS: Normal Saline - Diluent 50 ML VIAL IJ (16:17)
[2023-11-06] MEDS: Clotrimazole 1% 15 GM TUBE TP (16:40)
[2023-11-06] MEDS: Clopidogrel 300 MG TAB PO (17:02)
[2023-11-06] MEDS: nitroGLYcerin 0.4 MG TAB SL (17:02)
--- NOTE | 2023-11-06 17:15 | NUR.NOTE ---
Nursing Note: Tristan MATAMOROS aware of delay in starting heparin gtt due to PT/PTT not ordered with labs. Verbal order in and taken over to lab.
[2023-11-06 17:34] LABS: PTT Activated 26.5 sec (23.6-32.8); Prothrombin Time 10.4 sec (9.1-11.1)
[2023-11-06] MEDS: Heparin in 0.45% NaCl 25,000 UNIT/250 ML BAG 7.5 UNIT IV (17:41)
--- NOTE | 2023-11-06 17:54 | W.PM.HP.N ---
Date of service: 11/06/23 Time of Service: 17:56 Assessment and Plan Assessment and plan (1) Acute non-ST elevation myocardial infarction (NSTEMI): Status: Acute Assessment and plan: - Given patient presenting symptoms, EKG changes and elevated troponin, it appears that she has an NSTEMI -She was started on heparin drip and Plavix loaded after discussion with [facility] cardiology who is accepted the patient for transfer for left heart cardiac catheterization within the next 24 to 48 hours -Patient status post 2 doses of nitroglycerin in the emergency department with significant improvement of her chest pain -Will continue heparin, daily Plavix in the morning -Will continue her home metoprolol and high-dose statin -Continue sublingual nitro for additional episodes of chest pain, not relieved after 3 doses we will transfer to the ICU, initiate nitro drip and call back [facility] cardiology for consideration of emergent transfer (2) Coronary artery disease: Status: Chronic Assessment and plan: - History of PCI -Will treat as noted above (3) Hyperlipidemia: Status: Chronic Assessment and plan: - Continue statin as noted above (4) GERD (gastroesophageal reflux disease): Status: Chronic Assessment and plan: - Continue home PPI (5) Hypertension: Status: Chronic Assessment and plan: - Holding home antihypertensives at this time -Will restart as tolerated History of Present Illness History of Present Illness Chief Complaint: epigastric pain Narrative: 83-year-old female with a past medical history of hypertension, coronary artery disease status post PCI, hyperlipidemia, GERD presents emergency department with complaints of epigastric and chest pain. Patient states that she had the symptoms for about the last 4 days and had felt general malaise and unwell. She states that her symptoms were relieved when she took 2 doses of her home sublingual nitroglycerin, but they did recur earlier this morning. She describes it as a steady pressure-like sensation in her epigastrium and is associated with dizziness and nausea but no headache, visual changes, radiation of pain, vomiting or shortness of breath. In the emergency department the patient had normal physical exam and normal vital signs. EKG showed EKG changes consistent with inferior wall FL but no STEMI. Emergency room discussed with Dr. Oscar [place] at [facility] recommended starting heparin drip and Plavix load of 300 mg accepted the patient for transfer within next 24 to 48 hours for cardiac catheterization. After which time patient was given nitro and she had improvement of her chest pain, and her initial Trope returned at [id number], which [facility] was informed of. At which time emergency room physician patient hospice permission for patient with NSTEMI currently on heparin drip who has been accepted to [facility] for cardiac catheterization. Review of Systems All systems reviewed & are unremarkable except as noted in HPI and below PFSH All Active Problems (Updated 11/06/23 @ 16:22 by Jordan Hudson MD) Candidiasis (Acute) Acute non-ST elevation myocardial infarction (NSTEMI) (Acute) Urinary frequency (Acute) Constipation (Acute) Carotid stenosis, bilateral (Acute) Hypertension (Chronic 05/05/14) Pain in toe (Acute) Nail dystrophy (Acute) Nocturia (Acute) UTI (urinary tract infection) (Acute) Cough (Acute) Incomplete bladder emptying (Acute) Alzheimer's dementia without behavioral disturbance (Acute) Cognitive impairment (Acute) Acute UTI (Acute) Vulvar pain (Acute) Vaginal atrophy (Acute) 12/05/2019. And vulvar atrophy. Rx with topical estradiol. Dysuria (Acute) Acute on chronic anemia (Acute) Acute anemia (Acute) H/O rectocele repair (Acute) 06/25/2019 anterior and posterior colporrhaphy. 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 exercise stress test, exercise stress CT: No ischemia or scar, left ventricular function normal. LV EF 66%. Normal wall motion wall thickening. 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 I recommend the patient restrict her p.o. intake at this time Pre-diabetes Renal artery stenosis Urinary incontinence Surgical History H/O heart artery stent x3 History of colonoscopy History of tubal ligation Hx of bilateral cataract extraction ureteral stent 2005 Vaginal hysterectomy (~1988) for endometriosis. Social History Smoking/Tobacco Use Status: Former Tobacco Use Smoking risk assessment performed?: Yes Alcohol Intake: never Drug use: Never Substance use type: does not use Household members: none and other Details: Housing: apartment Do you feel safe at home: Yes Do you feel safe in your relationship?: Yes Female Reproductive History Menstrual Menopause type: surgical Meds Allergies and Home Medications Allergies Allergy/AdvReac Type Severity Reaction Status Date / Time Iodinated Contrast Media Allergy Severe critical Verified 11/06/23 14:52 Sulfa (Sulfonamide Allergy Intermediate itching Verified 11/06/23 14:52 Antibiotics) Latex, Natural Rubber Allergy rash and Verified 11/06/23 14:52 itching Penicillins Allergy rash/pustul Verified 11/06/23 14:52 e metronidazole AdvReac Intermediate shooting Verified 11/06/23 14:52 unilateral eye pain Home Medications Medication Instructions Recorded Confirmed Type acetaminophen 500 mg tablet (Mapap 1,000 mg PO TID PRN PRN 08/10/14 11/06/23 History Extra Strength) cholecalciferol (vitamin D3) 50 2,000 unit PO DAILY 08/10/14 11/06/23 History mcg (2,000 unit) capsule (Vitamin D3) coenzyme Q10 100 mg capsule 100 mg PO DAILY 08/10/14 11/06/23 History (CoQ-10) isosorbide mononitrate 120 mg 120 mg PO DAILY 08/10/14 11/06/23 History tablet,extended release 24 hr nitroglycerin 0.4 mg sublingual 0.4 mg sublingual DIRECTED 08/10/14 11/06/23 History tablet esomeprazole magnesium 40 mg 40 mg PO BID ##0 08/28/16 11/06/23 Rx capsule,delayed release (Nexium) aspirin 81 mg tablet,delayed 162 mg PO DAILY 07/10/19 11/06/23 History release meclizine 12.5 mg tablet 12.5 mg PO TID PRN dizziness #14 07/15/20 11/06/23 Rx tabs vitamin E 268 mg (400 unit) capsule 400 unit PO DAILY 11/26/20 11/06/23 History furosemide 20 mg tablet (Lasix) 20 mg PO DAILY PRN 02/28/21 11/06/23 History multivitamin 1 tab PO DAILY 06/14/21 11/06/23 History amlodipine 2.5 mg tablet 2.5 mg PO DAILY 08/07/22 11/06/23 History estradiol 0.01% (0.1 mg/gram) 1 g vaginal .2x/week 08/07/22 11/06/23 History vaginal cream (Estrace) loratadine 10 mg tablet (Claritin) 10 mg PO DAILY 08/07/22 11/06/23 History polyethylene glycol 3350 17 17 g PO DAILY PRN constipation 08/07/22 11/06/23 History gram/dose oral powder (Miralax) atorvastatin 40 mg tablet (Lipitor) 80 mg PO HS 12/27/22 11/06/23 History lisinopril 20 mg tablet 20 mg PO DAILY 12/27/22 11/06/23 History mecobalamin (vitamin B12) 1,000 1,000 mcg sublingual DAILY 12/27/22 11/06/23 History mcg disintegrating tablet,sublingual psyllium husk 3.4 gram/5.4 gram 1 tbsp PO DAILY #660 grams 03/12/23 11/06/23 Rx oral powder (Metamucil) memantine 10 mg tablet 10 mg PO BID #180 tabs 04/10/23 11/06/23 Rx metoprolol succinate 50 mg 50 mg PO DAILY #90 tabs 06/04/23 11/06/23 Rx tablet,extended release 24 hr (Toprol XL) ondansetron 4 mg disintegrating 4 mg PO Q8H 09/19/23 11/06/23 History tablet sodium chloride 5 % eye drops 1 drp ophthalmic (eye) QHS 09/19/23 11/06/23 History Exam Narrative Exam Narrative: Well-appearing older female laying in bed in no acute distress, ANO x 4, heart regular rhythm, lungs clear to auscultation bilaterally, abdomen soft, nontender, nondistended Results Labs 11/06/23 15:13 11/06/23 15:13 Labs: Laboratory Results - last 24 hr 11/06/23 11/06/23 14:58 15:13 WBC 13.61 H RBC 4.78 Hgb 14.3 Hct 42.9 MCV 90 MCH 29.9 MCHC 33.3 RDW 12.8 Plt Count 266 MPV 9.7 Immature Gran % 0.4 Neutrophils % 78.0 Lymphocytes % 15.1 Monocytes % 5.9 Eosinophils % 0.2 Basophils % 0.4 Nucleated RBC % 0.0 Absolute Neutrophils 10.62 H Absolute Lymphocytes 2.06 Absolute Monocytes 0.80 Absolute Eosinophils 0.03 Absolute Basophils 0.05 PT 10.4 INR 1.0 APTT 26.5 D-Dimer 1158 H Sodium 141 Potassium 3.8 Chloride 103 Carbon Dioxide 28.8 Anion Gap 9.2 BUN 17 Creatinine 0.8 Est GFR (CKD-EPI 2020) 73.52 Glucose 112 H Calcium 11.3 H Total Bilirubin 0.8 AST 26 ALT 24 Alkaline Phosphatase 103 Troponin I 2516 H* NT-Pro-B Natriuret Pep Cancelled Total Protein 8.4 H Albumin 4.5 Lipase 23 Last Vital Signs Temp 98.4 F 11/06/23 14:55 Pulse 84 11/06/23 17:45 Resp 16 11/06/23 17:45 BP 141/86 H 11/06/23 17:45 Pulse Ox 97 11/06/23 14:55 Time Spent Time spent with Patient: >75 minutes Time was spent: preparing to see the patient(eg.review tests), obtaining and/or reviewing separately otained hiistory, ordering medications,tests, procedures, referring, communicating with other health home care associate, indepentently interpreting results, counseling the patient and care coordination
[2023-11-06 18:44] LABS: Troponin I 6421 ng/L (< or =60)
[2023-11-06 20:48] LABS: Troponin I 6797 ng/L (< or =60)
[2023-11-06] MEDS: Esomeprazole 40 MG CAPCR PO (21:12)
[2023-11-06] MEDS: Atorvastatin 40 MG TAB 80 MG PO (21:12)
[2023-11-06] MEDS: Memantine 5 MG TAB 10 MG PO (21:12)
[2023-11-06] MEDS: Acetaminophen 325 MG TAB PO (22:35)
[2023-11-06 23:58] LABS: PTT Activated 64.9 sec (23.6-32.8)
[2023-11-07] VITALS (7 sets, daily range): BP systolic 124–184; BP diastolic 56–86; PULSE 63–94; RESP 15–17; TEMP 36.2–37.1; O2SAT 93–97
[2023-11-07 06:28] LABS: HCT 39.2 % (36.0-46.0); HGB 12.8 g/dL (11.2-15.7); MCH 29.9 pg (27.0-33.0); MCHC 32.7 % (32.0-36.0); MCV 92 fL (80-95); MPV 9.5 fL (8.0-11.0); Platelet Count 196 10^3/uL (130-400); RBC 4.28 10^6/uL (3.93-5.22); RDW 12.8 % (11.7-14.6); RDW-SD 42.6 fL; WBC 6.89 10^3/uL (4.4-10.8)
[2023-11-07 06:42] LABS: PTT Activated 61.2 sec (23.6-32.8)
[2023-11-07 06:52] LABS: Anion Gap 9.9 mmol/L (3-11); BUN 11 mg/dL (7-18); CO2 26.1 mmol/L (21.0-32.0); CREATININE 0.7 mg/dL (0.55-1.02); Calcium 10.4 mg/dL (8.5-10.1); Chloride 108 mmol/L (98-107); Glucose 98 mg/dL (74-106); Magnesium 1.9 mg/dL (1.8-2.4); Potassium 3.7 mmol/L (3.5-5.1); Sodium 144 mmol/L (136-145)
--- NOTE | 2023-11-07 07:00 | RT.EKG_ITS ---
APPROVED REPORT Exam: Resting ECG Reason for Exam: Chest pain Patient Location: I HR:67 bpm ECG Measurements Heart Rate 67 AXIS PA 153 P 33 QRSd 103 QRS -74 QT 351 T 83 QTc 371 Conclusion Sinus rhythm...normal P axis, V-rate 50- 99 LAFB incRBBB
[2023-11-07 07:03] LABS: Troponin I 2861 ng/L (< or =60)
[2023-11-07] MEDS: Clopidogrel 75 MG TAB (07:16)
[2023-11-07] MEDS: Multivitamin TAB 1 TAB PO (09:27)
[2023-11-07] MEDS: Memantine 5 MG TAB 10 MG PO (09:27)
[2023-11-07] MEDS: Loratidine 10 MG TAB PO (09:27)
[2023-11-07] MEDS: Metoprolol CR 50 MG TABCR PO (09:27)
[2023-11-07] MEDS: Isosorbide Mononitrate 60 MG TABCR 120 MG PO (09:27)
[2023-11-07] MEDS: Esomeprazole 40 MG CAPCR PO (09:27)
[2023-11-07] MEDS: Acetaminophen 325 MG TAB PO (09:27)
[2023-11-07] MEDS: Normal Saline Flush 10 ML SYR IVP (09:29)
--- NOTE | 2023-11-07 10:12 | PDOC.CMIN ---
Date of service: 11/07/23 Care Management Initial Assmt Initial Assessment REASON FOR HOSPITALIZATION:: NSTEMI PREVIOUS FUNCTIONAL STATUS/SOCIAL/FAMILY SUPPORTS:: Syed lives in [place] with her cat Chuy. She is . Syed has two daughters Latosha and Verónica and a brother Bishop, who are supportive. Syed receives supports at home on Wednesdays for medications through [facility] and Latosha assists with grocery shopping and appointments. CURRENT FUNCTIONAL STATUS:: Syed was lying in bed when talking with CM. She described not liking to be stuck in the bed since she was getting heparin through an IV. Syed described she will be transferring to [facility] late this afternoon and just wants to make sure her daughter Latosha know when so she can follow the ambulance. Syed shared too her daughter Verónica is flying up from [place] and her brother Bishop who lives in [facility] will also be seeing her when transferred to [facility]. Syed shared her memory has been progressively worsening and becoming more difficult to retrieve and she requires more and more assistance. She became teary when discussing possibly rehoming her cat to focus only on her own care. CM notified of need to notify family re: [facility] transfer with RN. CM following. ADVANCE DIRECTIVES:: On file [facility] Latosha Schulz alternate Verónica Mae Has patient been provided with info about the portal/API?: Yes Did the patient sign up for the portal?: Yes CODE STATUS:: Full Code INSURANCE COVERAGE / FINANCIAL ISSUES:: Medicare Part A & B [facility] Life MCR Supplement CURRENT HOME/COMMUNITY SERVICES/EQUIPMENT:: Raised toilet seat, Grab bars, MOW, [facility] care services PRIMARY CARE PHYSICIAN:: CHARISSE QURESHI NP POTENTIAL DISCHARGE NEEDS:: Follow up appointments. PATIENT/FAMILY EDUCATION NEEDS:: Review of discharge instructions, discuss Ask Me Three ANTICIPATED BARRIERS TO DISCHARGE:: None identified at this time. TRANSPORTATION:: TBD by disposition. PLAN:: CM will continue to follow and support discharge planning considerations. PFSH All Active Problems (Updated 11/06/23 @ 16:22 by Jordan Hudson MD) Candidiasis (Acute) Acute non-ST elevation myocardial infarction (NSTEMI) (Acute) Urinary frequency (Acute) Constipation (Acute) Carotid stenosis, bilateral (Acute) Hypertension (Chronic 05/05/14) Pain in toe (Acute) Nail dystrophy (Acute) Nocturia (Acute) UTI (urinary tract infection) (Acute) Cough (Acute) Incomplete bladder emptying (Acute) Alzheimer's dementia without behavioral disturbance (Acute) Cognitive impairment (Acute) Acute UTI (Acute) Vulvar pain (Acute) Vaginal atrophy (Acute) 12/05/2019. And vulvar atrophy. Rx with topical estradiol. Dysuria (Acute) Acute on chronic anemia (Acute) Acute anemia (Acute) H/O rectocele repair (Acute) 06/25/2019 anterior and posterior colporrhaphy. 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 exercise stress test, exercise stress CT: No ischemia or scar, left ventricular function normal. LV EF 66%. Normal wall motion wall thickening. 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 I recommend the patient restrict her p.o. intake at this time Pre-diabetes Renal artery stenosis Urinary incontinence Surgical History H/O heart artery stent x3 History of colonoscopy History of tubal ligation Hx of bilateral cataract extraction ureteral stent 2004 Vaginal hysterectomy (~1988) for endometriosis. Social History Smoking/Tobacco Use Status: Former Tobacco Use Smoking risk assessment performed?: Yes Alcohol Intake: never Drug use: Never Substance use type: does not use Household members: none and other Details: Housing: apartment Do you feel safe at home: Yes Do you feel safe in your relationship?: Yes Female Reproductive History Menstrual Menopause type: surgical SDOH(Care Management) Screening Will the Patient Participate in the Screening?: Yes Do you worry about having a steady place to live?: no In the past 12 months, have you had to go without electric, gas, oil or water in your home?: choose not to answer Have you or anyone in your house had to go without enough food to eat?: choose not to answer Has lack of transportation kept you from medical appointments or from doing things needed for daily living?: choose not to answer Has anyone in your support network made you feel unsafe for any reason?: choose not to answer
[2023-11-07 13:01] LABS: PTT Activated 62.8 sec (23.6-32.8)
--- NOTE | 2023-11-07 17:26 | W.PM.DS.N ---
Date of service: 11/07/23 Time of Service: 17:26 DS: Diagnosis Discharge Diagnosis (1) Acute non-ST elevation myocardial infarction (NSTEMI): Status: Acute Asessment and Plan: - Given patient presenting symptoms, EKG changes and elevated troponin, it appears that she has an NSTEMI -She was started on heparin drip and Plavix loaded after discussion with [facility] cardiology who is accepted the patient for transfer for left heart cardiac catheterization within the next 24 to 48 hours -Patient status post 2 doses of nitroglycerin in the emergency department with significant improvement of her chest pain -Will continue heparin, daily Plavix in the morning -Will continue her home metoprolol and high-dose statin -Continue sublingual nitro for additional episodes of chest pain, not relieved after 3 doses we will transfer to the ICU, initiate nitro drip and call back [facility] cardiology for consideration of emergent transfer (2) Coronary artery disease: Status: Chronic (3) Hyperlipidemia: Status: Chronic (4) GERD (gastroesophageal reflux disease): Status: Chronic (5) Hypertension: Status: Chronic Discharge Plan Disposition Patient Disposition: Transfer-Acute Inpatient Care Specific Acute Inpt Facility: [facility] Condition: Good Discharge Details Reason For Visit: NSTEMI Admit Date/Time: 11/06/23 17:30 Admit Provider: Matthew Garcia Attending Provider: Matthew Garcia Primary Care Provider: CHARISSE QURESHI [facility] Course Hospital Course: Patient initially presented with complaints of days of epigastric and chest pain that was ultimately determined to be an NSTEMI with significantly elevated troponins and EKG changes. [facility] cardiology accepted the patient from the emergency department stated that she would have catheterization within 24 to 48 hours and recommended initiation of heparin drip and Plavix loading which patient has received. She only had 1 additional episode of chest pain since being admitted and resolved after 1 dose of sublingual nitroglycerin. Home Meds and New Rx's Prescriptions: No Action estradiol [Estrace] 0.01 % (0.1 mg/gram) cream 1 g VG .2x/week Rx Instructions: apply small amount to labia daily. polyethylene glycol 3350 [Miralax] 17 gram/dose powder 17 g PO DAILY PRN (Reason: constipation) memantine 10 mg tablet 10 mg PO BID Qty: 180 3RF aspirin 81 mg tablet,delayed release (DR/EC) 162 mg PO DAILY Patient Comments: takes 2 tabs amlodipine 2.5 mg tablet 2.5 mg PO DAILY Metamucil 3.4 gram/5.4 gram powder 1 tbsp PO DAILY Qty: 660 0RF Rx Instructions: mix into at least 8 oz of water or juice before administering ondansetron 4 mg tablet,disintegrating 4 mg PO Q8H sodium chloride 5 % drops 1 drp ophthalmic (eye) QHS furosemide [Lasix] 20 mg tablet 20 mg PO DAILY PRN multivitamin Tablet 1 tab PO DAILY loratadine [Claritin] 10 mg tablet 10 mg PO DAILY lisinopril 20 mg tablet 20 mg PO DAILY Patient Comments: 12/27/22 per PCP records RH atorvastatin [Lipitor] 40 mg tablet 80 mg PO HS mecobalamin (vitamin B12) 1,000 mcg tablet,disintegrating 1,000 mcg sublingual DAILY Patient Comments: 12/27/22 Per PCP record pt takes M,W,F RH Rx Instructions: place tablet under tongue and allow to dissolve for at least30 secs before swallowing metoprolol succinate [Toprol XL] 50 mg tablet extended release 24 hr 50 mg PO DAILY Qty: 90 3RF acetaminophen [Mapap Extra Strength] 500 MG tablet 1,000 mg PO TID PRN PRN isosorbide mononitrate 120 MG tablet extended release 24 hr 120 mg PO DAILY nitroglycerin 0.4 MG tablet, sublingual 0.4 mg Sublingual DIRECTED Patient Comments: 08/12/14 pt reports last time used was 2-3 months ago. coenzyme Q10 [CoQ-10] 100 MG capsule 100 mg PO DAILY cholecalciferol (vitamin D3) [Vitamin D3] 2,000 UNIT capsule 2,000 unit PO DAILY meclizine 12.5 mg tablet 12.5 mg PO TID PRN (Reason: dizziness) Qty: 14 0RF esomeprazole magnesium [Nexium] 40 MG capsule,delayed release(DR/EC) 40 mg PO BID Qty: 0 0RF vitamin E 400 unit Capsule 400 unit PO DAILY Discharge Instructions Activity:: Activity as Tolerated Equipment/Supplies:: No Equipment Needed Diet:: As Tolerated Discharge Orders Discharge Orders: Discharge Order (Routine); Ordered 11/07/23 Ordered By: Matthew Garcia DS: Summary Time Spent with Patient providing and/or coordinating discharge services: Greater than 30 minutes Status at Discharge Functional status at discharge: independent ambulation Overall status at discharge: patient is back to baseline Mental Status: mental status grossly normal Speech and Movement: speech and movement normal Mood: congruent mood Affect: normal affect Quality:SDOH Health Related Social Needs: No Data to Display Exam Narrative Exam Narrative: Well-appearing older female laying in bed in no acute distress, ANO x 4, heart regular rhythm, lungs clear to auscultation bilaterally, abdomen soft, nontender, nondistended Psych Mental Status: mental status grossly normal Speech and Movement: speech and movement normal Mood: congruent mood Affect: normal affect DS: Data Vitals/I&O Vitals and I&O: Vital Signs Temperature 98.8 F 11/07/23 16:38 Temperature Source Tympanic 11/07/23 16:38 Pulse 94 H 11/07/23 16:38 Pulse Rhythm Regular 11/07/23 08:30 Pulse 77 11/06/23 17:45 Respiratory Rate 16 11/07/23 16:38 Respiratory Effort Normal, Non-Labored 11/07/23 08:30 Respiratory Depth Normal 11/07/23 08:30 Respiratory Pattern Normal 11/07/23 08:30 Blood Pressure 129/86 11/07/23 16:38 Blood Pressure Mean 104 11/06/23 17:45 Blood Pressure Position Sitting 11/06/23 14:55 Pulse Oximetry 94 11/07/23 16:38 Oxygen Delivery Method Room Air 11/07/23 16:38 Oxygen Flow Rate 0 11/07/23 16:38 Pain Level 0 11/07/23 16:38 Comment Patient reports 0/10 chest pain. Endorses headache post nitro admin 11/07/23 07:54 Intake & Output 11/06/23 11/07/23 11/07/23 17:59 05:59 17:59 Intake Total 510 / 510 240 / 750 139.25 / 139.25 Output Total 100 / 100 Balance 510 / 510 240 / 750 39.25 / 39.25 Weight 135 lb 58 lb 3.233 oz 113 lb Intake: IV 510 / 510 139.25 / 139.25 Oral 240 / 240 Output: Urine 100 / 100 Other: Urine Color Pale Dark Tea Yellow Urine Appearance Clear Clear Urine Odor Normal Voiding Methods Toilet Toilet Data Completed and Pending Labs on day of discharge: Labs from last 24 hours 11/07/23 11/07/23 11/06/23 12:15 05:58 23:38 WBC 6.89 RBC 4.28 Hgb 12.8 Hct 39.2 MCV 92 MCH 29.9 MCHC 32.7 RDW 12.8 Plt Count 196 MPV 9.5 PT INR APTT 62.8 H 61.2 H 64.9 H Sodium 144 Potassium 3.7 Chloride 108 H Carbon Dioxide 26.1 Anion Gap 9.9 BUN 11 Creatinine 0.7 Est GFR (CKD-EPI 2020) 86.30 Glucose 98 Calcium 10.4 H Magnesium 1.9 Troponin I 2861 H* 11/06/23 11/06/23 11/06/23 20:25 18:13 15:13 WBC RBC Hgb Hct MCV MCH MCHC RDW Plt Count MPV PT 10.4 INR 1.0 APTT 26.5 Sodium Potassium Chloride Carbon Dioxide Anion Gap BUN Creatinine Est GFR (CKD-EPI 2020) Glucose Calcium Magnesium Troponin I 6797 H* 6421 H* PFSH All Active Problems (Updated 11/06/23 @ 16:22 by Jordan Hudson MD) Candidiasis (Acute) Acute non-ST elevation myocardial infarction (NSTEMI) (Acute) Urinary frequency (Acute) Constipation (Acute) Carotid stenosis, bilateral (Acute) Hypertension (Chronic 05/05/14) Pain in toe (Acute) Nail dystrophy (Acute) Nocturia (Acute) UTI (urinary tract infection) (Acute) Cough (Acute) Incomplete bladder emptying (Acute) Alzheimer's dementia without behavioral disturbance (Acute) Cognitive impairment (Acute) Acute UTI (Acute) Vulvar pain (Acute) Vaginal atrophy (Acute) 12/05/2019. And vulvar atrophy. Rx with topical estradiol. Dysuria (Acute) Acute on chronic anemia (Acute) Acute anemia (Acute) H/O rectocele repair (Acute) 06/25/2019 anterior and posterior colporrhaphy. 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 exercise stress test, exercise stress CT: No ischemia or scar, left ventricular function normal. LV EF 66%. Normal wall motion wall thickening. 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 I recommend the patient restrict her p.o. intake at this time Pre-diabetes Renal artery stenosis Urinary incontinence Surgical History H/O heart artery stent x3 History of colonoscopy History of tubal ligation Hx of bilateral cataract extraction ureteral stent 2005 Vaginal hysterectomy (~1988) for endometriosis. Social History Smoking/Tobacco Use Status: Former Tobacco Use Smoking risk assessment performed?: Yes Alcohol Intake: never Drug use: Never Substance use type: does not use Household members: none and other Details: Housing: apartment Do you feel safe at home: Yes Do you feel safe in your relationship?: Yes Female Reproductive History Menstrual Menopause type: surgical Time Spent with Patient Time Spent with Patient: <45 minutes Time was spent: preparing to see the patient(eg.review tests), obtaining and/or reviewing separately otained hiistory, ordering medications,tests, procedures, referring, communicating with other health career transition specialist, indepentently interpreting results, counseling the patient and care coordination
== END 2023-11-07 18:15 | disposition short-term general hospital (02) | DRG 282 ==
LOC: ER 17:42 → MS 18:22
PROVIDERS: Admitting Provider Family Medicine; Emergency Provider Emergency Medicine; PCP Nurse Practitioner Family; Visit Provider Family Medicine
DX: I21.4 Non-ST elevation (NSTEMI) myocardial infarction (principal); I25.10 Atherosclerotic heart disease of native coronary artery without angina pectoris; E78.5 Hyperlipidemia, unspecified; I10 Essential (primary) hypertension; K21.9 Gastro-esophageal reflux disease without esophagitis; Z95.5 Presence of coronary angioplasty implant and graft; K59.00 Constipation, unspecified; R35.0 Frequency of micturition; I65.23 Occlusion and stenosis of bilateral carotid arteries; R35.1 Nocturia; D64.9 Anemia, unspecified; I49.3 Ventricular premature depolarization; K57.30 Diverticulosis of large intestine without perforation or abscess without bleeding; L30.9 Dermatitis, unspecified; I71.40 Abdominal aortic aneurysm, without rupture, unspecified; E04.2 Nontoxic multinodular goiter; M48.062 Spinal stenosis, lumbar region with neurogenic claudication; R73.03 Prediabetes; I73.9 Peripheral vascular disease, unspecified; H81.11 Benign paroxysmal vertigo, right ear; E21.3 Hyperparathyroidism, unspecified; Z87.891 Personal history of nicotine dependence
CPT/HCPCS: 00123; 36415; 71275; 80048; 80053; 83690; 85027; 93005; 96361; 99291; 71045; 74174; 83735; 83880; 84484; 85025; 85379; 85610; 85730; 93010; 99223; 99238; J1644; J3490

== ENCOUNTER → 2023-12-31 13:28 | Outpatient (BNVA) | payer MEDICARE, SELFPAY | PROVIDERS: PCP Nurse Practitioner Family; Visit Provider Internal Medicine Cardiovascular Disease | DX: I65.23 Occlusion and stenosis of bilateral carotid arteries (principal); I25.10 Atherosclerotic heart disease of native coronary artery without angina pectoris | CPT/HCPCS: 99213 ==

== ENCOUNTER 2024-03-25 18:53 | Outpatient (REF) | payer MEDICARE, SELFPAY ==
[2024-03-25 19:43] LABS: Abs Immature Grans 0.04 10^3/uL (0.0-0.06); Absolute Basophil Count 0.04 10^3/uL (0.0-0.2); Absolute Eosinophil Count 0.21 10^3/uL (0.0-0.7); Absolute Lymphocyte Count 2.89 10^3/uL (1.2-3.4); Absolute Monocyte Count 0.47 10^3/uL (0.1-0.8); Absolute Neutrophil Count 3.67 10^3/uL (1.2-6.7); Basophils % 0.5 %; Eosinophils % 2.9 %; HGB 12.1 g/dL (11.2-15.7); Immature Grans % 0.5 %; Lymphocytes % 39.5 %; MCH 30.1 pg (27.0-33.0); MCHC 32.7 % (32.0-36.0); MCV 92 fL (80-95); MPV 10.3 fL (8.0-11.0); Monocytes % 6.4 %; Neutrophils % 50.2 %; Platelet Count 269 10^3/uL (130-400); RBC 4.02 10^6/uL (3.93-5.22); RDW 13.6 % (11.7-14.6); RDW-SD 46.1 fL; WBC 7.32 10^3/uL (4.4-10.8)
[2024-03-25 19:53] LABS: Anion Gap 7.1 mmol/L (3-11); BUN 13 mg/dL (7-18); CO2 28.9 mmol/L (21.0-32.0); CREATININE 0.8 mg/dL (0.55-1.02); Chloride 107 mmol/L (98-107); Estimated GFR 73.52 (mL/min/1.73m2); Glucose 113 mg/dL (74-106); Potassium 3.9 mmol/L (3.5-5.1); Sodium 143 mmol/L (136-145)
[2024-03-25 20:05] LABS: Iron 51 ug/dL (50-170); Total Iron Binding Capacity 288 ug/dL (250-450); Transferrin Sat 18 % (15-50)
[2024-03-26 00:15] LABS: Ferritin 256 ng/mL (8-252)
== END 2024-03-25 18:54 | disposition home or self-care (01) ==
LOC: NCHCN 18:53
PROVIDERS: PCP Nurse Practitioner Family; Visit Provider Nurse Practitioner Family
DX: D64.9 Anemia, unspecified (principal); R53.83 Other fatigue
CPT/HCPCS: 80048; 82728; 83540; 83550; 85025

== ENCOUNTER → 2024-04-08 12:39 | Outpatient (BNVA) | payer MEDICARE, SELFPAY | PROVIDERS: PCP Nurse Practitioner Family; Visit Provider Nurse Practitioner Adult Health | DX: G30.9 Alzheimer's disease, unspecified (principal); F02.80 Dementia in other diseases classified elsewhere, unspecified severity, without behavioral disturbance, psychotic disturbance, mood disturbance, and anxiety | CPT/HCPCS: 99215 ==

== ENCOUNTER → 2024-05-29 13:04 | Outpatient (BNVA) | payer MEDICARE, SELFPAY | PROVIDERS: PCP Nurse Practitioner Family; Referring Provider Nurse Practitioner Family; Visit Provider Podiatrist | DX: L60.3 Nail dystrophy (principal); B35.1 Tinea unguium; M79.674 Pain in right toe(s); M79.675 Pain in left toe(s) | CPT/HCPCS: 11719; 11720 ==

== ENCOUNTER → 2024-06-30 13:38 | Outpatient (BNVA) | payer MEDICARE, SELFPAY | PROVIDERS: PCP Nurse Practitioner Family; Visit Provider Registered Nurse | DX: I25.10 Atherosclerotic heart disease of native coronary artery without angina pectoris (principal) | CPT/HCPCS: 99214 ==

== ENCOUNTER 2024-07-28 02:06 | Outpatient (CLI) | payer MEDICARE, SELFPAY ==
--- NOTE | 2024-07-28 07:15 | DI.NM_ITS ---
APPROVED REPORT Exam: Pharmacologic Patient Location: Out-Patient Room/Bed: Stress Nurse: Karen Le RN Ordering Provider:KADI MORAN, Contact Number: BMI: 24.40 Baseline Rhythm: Sinus Bradycardia Medical History Medical History: CAD, b/l carotid stenosis, NSTEMI, HTN, Alzheimer's, PVCs, GERD, PVD, AAA (w/out rup ture), spinal stenosis, prediabetes, hyperparathyroidism, peripheral artery disease, renal artery dis ease Cardiac Medications: amlodipine, aspirin, atorvastatin, nexium, estradiol, lasix, imdur, lisinopril, meclizine, memantine, metoprolol succinate, nitroglycerin Allergies: iodinated contrast media, sulfa, latex, natural rubber, penicillins, metronidazole Cardiac Risk Factors: family hx, prediabetes, HTN, HLD, PVD, CVD, former smoker Previous Cardiac Procedures: h/o stent Pretest Chest Pain Characteristics: No chest pain Exercise History: Sedentary Physical Disabilities: Back Lung Sounds: Clear to auscultation Heart Sounds: Regular Stress Test Details Test: Pharmacologic stress testing performed using 0.4 mg of regadenoson per 5 mL given IV over 10 s econds. Reason for pharmacologic stress test: physical limitation. Nuclear Acquisition: Rest Tc-99m/Stress Tc-99m 1 day Rest Isotope: Tc-99m Sestamibi. Dose: 10.0 Date: 07/28/2024 Injection Time: 1005 Stress Isotope: Tc-99m Sestamibi. Dose: 30.0 Date: 07/28/2024 Injection Time: 1243 HR Resting HR Supine: 56 bpm Max Heart Rate (APMHR): 138 bpm Target HR (85% APMHR): 117 bpm Max HR Achieved: 83 bpm % of APMHR: 60 Recovery HR: 71 bpm BP Resting BP Supine: 150/62 mmHg Max BP: 150/64 mmHg Recovery BP: 140/70 mmHg ECG Resting ECG: Sinus Bradycardia Ectopy: none Stress ECG: Sinus Rhythm ST Change: Nondiagnostic low heart rate Arrhythmia: None Recovery ECG: Sinus Rhythm Recovery ST Change: Nondiagnostic low heart rate Recovery Arrhythmia: None Clinical Stress Symptoms: Dizziness, Abdominal discomfort, Headache, Chest pain Angina Score: Non-Limiting Rate Pressure Product: 77999 Stress ECG Conclusion 1. Resting electrocardiogram showed left anterior fascicular block and late transition 2. Patient underwent testing using pharmacologic stress with regadenoson 3. Peak heart rate achieved was 60% of maximal for age 4. The electrocardiographic portion of the test was nondiagnostic 5. See MPI report Stress Test Summary STAGE HR BP SpO2 Symptoms NOTES Supine 56 150/62 95 1 min post Lexiscan injection 78 150/64 99 mild ARIAS, abdominal discomfort and chest pain 3 min post Lexiscan injection 80 138/66 98 moderate ARIAS, abdominal discomfort and chest pain 6 min post Lexiscan injection 71 140/70 93 dizziness All symptoms resolved by end of test other than mild headache. Patient left ambulatory in no acute di stress. MPI Conclusion Myocardial perfusion is normal. There is no ischemia or evidence of prior infarction Ejection fraction is 62% with normal wall motion
--- NOTE | 2024-07-28 09:21 | DI.US_ITS ---
APPROVED REPORT EXAM: Comprehensive 2D, Doppler, and color-flow Echocardiogram Patient Location: Out-Patient Poultice Machine Operator: Araceli Iglesias RDCS (AE) Indications: Chest pain, CAD Other Information Study Quality: Adequate Conclusion Mild concentric left ventricular hypertrophy. Ejection fraction is 55 to 60%. Wall motion is normal Normal right ventricular size and function Both atria are normal in size Mitral annular calcification Estimated right ventricular systolic pressure is 44 mmHg Wall motion Left Ventricle The left ventricle is normal size. The left ventricular systolic function is normal. The left ventric ular ejection fraction is within the normal range. Mild concentric left ventricular hypertrophy. Ther e is normal LV segmental wall motion. There is no ventricular septal defect visualized. LVEF is 55-6 0%. Right Ventricle The right ventricle is normal size. The right ventricular systolic function is normal. Atria The left atrium size is normal. The right atrium size is normal. The interatrial septum is intact wit h no evidence for an atrial septal defect. Aortic Valve The aortic valve is normal in structure. Aortic valve is trileaflet. There is no aortic valvular sten osis. No aortic regurgitation is present. Mitral Valve Mild mitral annular calcification. No evidence of mitral valve stenosis. Trace to mild mitral regurg itation. Tricuspid Valve The tricuspid valve is normal in structure. There is no tricuspid valve stenosis. Mild tricuspid reg urgitation. The RVSP is 44.2 mmHg. Pulmonic Valve The pulmonary valve is normal in structure. There is no pulmonic valvular stenosis. Trace pulmonic re gurgitation. Great Vessels The aortic root is normal in size. The ascending aorta is normal in size. Aortic arch is not well vis ualized. IVC is normal in size and collapses >50% with inspiration. Pericardium There is no pericardial effusion. 2D Dimensions IVSD d PLAX 1.10 cm F: 0.6-1.0 Ao Root d 2.55 cm F: 2.7 - 3.3 LVPW d PLAX 1.10 cm F: 0.6 - 1.0 Ao Asc Diam d 2.72 cm F: 2.3 - 3.1 LVID d PLAX 4.00 cm F: 3.8 - 5.2 LVDs 2.72 cm F: 2.2 - 3.5 LV EF Teichholz 59.6 % FS 31.19 % LV EDV (Teich) 68.2 mL LV ESV (Teich) 27.6 mL M-Mode TAPSE 2.26 cm (M/F) >1.7 Auto EF LV EDV A4C 81.3 mL LV EDV A2C 84.5 mL LV EDV BP 83.4 mL LV ESV A4C 32.8 mL LV ESV A2C 38.3 mL LV ESV BP 35.8 mL LVEF(%) A4C 59.6 % LVEF(%) A2C 54.7 % LVEF(%) BP 57.0 % LV SV A4C 48.5 ml LV SV A2C 46.2 ml LV SV BP 47.5 ml LV CO A4C 2.4 L/min LV CO A2C 2.8 L/min LV CO BP 2.6 L/min HR A4C 50.26 BPM HR A2C 59.51 BPM LV EDV Index (BP) LA Volume LA Length A4C 5.2 cm LA Length A2C 5.3 cm LA Area A4C s 16.34 cm2 LA Area A2C s 17.12 cm2 LA Vol A4C A-L 43.27 mL LA Vol A2C A-L 47.37 mL LA Vol Biplane A-L 45.3 mL LA Vol/BSA A4C A-L LA Vol/BSA A2C A-L LA Vol/BSA BP A-L 30.4 mL/m2 LA Vol A4C MOD 41.4 mL LA Vol A2C MOD 45.2 mL LA Vol BP MOD 43.2 mL RA Volume RA Area A4C 9.6 cm2 RA ESV A4C (A-L) 17.0mL RA Vol/BSA A4C A-L RA Length A4C 4.6 cm RA ESV A4C (MOD) 16.7mL LV Diastology MV E' medial 0.049 (>0.07 m/s) MV E Vmax 1.41 (0.4-1.3 m/s) MV E/E' MED 28.59 (<14) MV A Vmax 0.70 (0.4-1.3 m/s) MV E' lateral 0.074 (>0.1 m/s) E/A Ratio 2.0 MV E/E' LAT 19.07 (<14) MV E' Average 0.062 m/s MV E/E'(average) 22.88 Aortic Valve AoV Vmax 1.51 m/s LVOT Vmax 0.88 m/s AoV Peak Grad 9.1 mmHg LVOT Peak Grad 3.1 mmHg AoV Area (Vmax) 1.51 cm2 LVOT VTI 0.223 m AoV VTI 0.391 m LVOT Mean Grad 1.6 mmHg AoV Mean Sina. 1.04 m/s LVOT SV 57.55 mL AoV Mean Grad 4.9 mmHg LVOT Diam s 1.80 cm AoV Area (VTI) 1.47 cm2 AV Regurg Peak Gr. 9.09 mmHg Velocity Ratio 0.58 Mitral Valve MV DT 167 (160-240 msec) MV Vmax TIPS 1.47 m/s MV Mean Grad 2.0 (<2mmHg) MV VTI 0.500 m Pulmonary Valve PV Vmax 1.09 (0.5-1.5 m/s) RVOT Vmax 0.79 m/s PV Peak Grad 4.7 mmHg RVOT Peak Gr. 2.5 mmHg PV Mean Sina 0.79 m/s RVOT VTI 0.214 m PV Mean Grad 2.8 mmHg RVOT Mean Gr. 1.7 mmHg Tricuspid Valve RA Pressure 3.00 mmHg TR Vmax 3.21 m/s TV S' 0.14 m/s TR Peak Grad 41.1 mmHg RVSP (TR) 44.2 mmHg
[2024-07-28] MEDS: Regadenoson 0.4 MG/5 ML SYR IVP (12:43)
== END 2024-07-28 02:26 ==
LOC: DI 02:06
PROVIDERS: PCP Nurse Practitioner Family; Visit Provider Registered Nurse
DX: I25.10 Atherosclerotic heart disease of native coronary artery without angina pectoris
CPT/HCPCS: 78452; 93016; 93018; 93306; 93017; J2785

== ENCOUNTER → 2024-08-04 15:09 | Outpatient (BNVA) | payer MEDICARE, SELFPAY | PROVIDERS: PCP Nurse Practitioner Family; Visit Provider Registered Nurse | DX: I25.10 Atherosclerotic heart disease of native coronary artery without angina pectoris (principal) | CPT/HCPCS: 99214 ==

== ENCOUNTER 2024-11-19 15:19 | Outpatient (REF) | payer MEDICARE, SELFPAY ==
[2024-11-19 21:24] LABS: Anion Gap 7.4 mmol/L (3-11); BUN 13 mg/dL (7-18); CO2 30.6 mmol/L (21.0-32.0); CREATININE 0.8 mg/dL (0.55-1.02); Calcium 10.8 mg/dL (8.5-10.1); Chloride 109 mmol/L (98-107); Estimated GFR 73.06 (mL/min/1.73m2); Glucose 90 mg/dL (74-106); Potassium 3.7 mmol/L (3.5-5.1); Sodium 147 mmol/L (136-145)
[2024-11-19 21:26] LABS: Folate > 20.0 ng/mL (8.6-20.0); Vitamin B12 > 2000 pg/mL (193-986)
[2024-11-21 12:18] LABS: Syphilis Serology (RPR) Negative (Negative)
== END 2024-11-19 15:20 | disposition home or self-care (01) ==
LOC: NCHCN 15:19
PROVIDERS: PCP Nurse Practitioner Family; Visit Provider Family Medicine
DX: R41.0 Disorientation, unspecified (principal)
CPT/HCPCS: 80048; 82607; 82746; 84443; 86592